=== PATIENT | male | born 1955 | race Caucasian/White ===

== ENCOUNTER 2016-06-18 12:05 | Emergency (ER) | payer OTHER ==
--- NOTE | 2016-06-18 12:26 | ECGEPIP ---
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
[2016-06-18] MEDS ORDERED: ASPIRIN 81 MG CHEW TABLET As Ordered ONE (12:39)
[2016-06-18 12:50] LABS: BASO % 0.5 % (0.0-1.0); EOS # 0.1 K/mm3 (0.0-0.50); EOS % 1.2 % (0.0-3.0); LARGE UNSTAINED CELL # 0.1 K/mm3 (0.0-0.4); LARGE UNSTAINED CELL % 1.6 % (0.0-4.0); LYMPH # 0.2 K/mm3 (1.5-4.5); LYMPH % 3.4 % (24.0-44.0); MEAN CORPUSCULAR HEMOGLOBIN 29.5 pg (27.0-33.0); MEAN CORPUSCULAR HGB CONC 33.3 g/dl (32.0-36.5); MEAN CORPUSCULAR VOLUME 88.5 fl (80.0-96.0); MONO # 0.4 K/mm3 (0.0-0.8); MONO % 6.6 % (0.0-5.0); NEUTROPHILS # 5.8 K/mm3 (1.8-7.7); NEUTROPHILS % 86.6 % (36.0-66.0); PLATELET COUNT, AUTOMATED 247 k/mm3 (150-450); RED CELL DISTRIBUTION WIDTH 12.3 % (11.5-14.5); WHITE BLOOD COUNT 6.7 K/mm3 (4.0-10.0)
[2016-06-18] MEDS ORDERED: IPRATROPIUM 0.02% SOLN 0.5MG/2.5 ML NEB As Ordered ONE (12:50)
[2016-06-18 12:53] LABS: INR 1.04
[2016-06-18 12:57] LABS: ANION GAP 8 MEQ/L (8-16); BLOOD UREA NITROGEN 14 MG/DL (7-18); CALCIUM LEVEL 8.9 MG/DL (8.8-10.2); CARBON DIOXIDE LEVEL 29 MEQ/L (21-32); CHLORIDE LEVEL 99 MEQ/L (98-107); CREATININE FOR GFR 1.22 MG/DL (0.70-1.30); GLOMERULAR FILTRATION RATE > 60.0 (>49); GLUCOSE, FASTING 128 MG/DL (80-110); POTASSIUM SERUM 4.2 MEQ/L (3.5-5.1); SODIUM LEVEL 136 MEQ/L (136-145)
--- NOTE | 2016-06-18 13:19 | REP ---
Clinical: Cough . Comparison: 06/15/2015 . Technique: PA and lateral. Findings: The mediastinum and cardiac silhouette are normal. The lung pollard are clear and without acute consolidation, effusion, or pneumothorax. The skeletal structures are intact and normal. Impression: 1. No acute cardiopulmonary process. Signed by Dave Williamson MD 06/18/2016 01:11 P
--- NOTE | 2016-06-18 13:39 | EDDOCDS ---
Nurse's Notes [facility] Name: Andrés Brownlee Age: 60 yrs Sex: Male : 1955 Arrival Date: 06/18/2016 Time: 12:05 Bed 5 Private MD: Rajani, Family Dr Diagnosis: Bronchitis, not specified as acute or chronic Presentation: 06/18 12:12 Presenting complaint: Patient states: Intermittent chest pressure and cough for the mlb1 past week. Aspirin was not taken prior to arrival. Adult Sepsis Screening: The patient does not have new or worsening altered mentation. Patient's respiratory rate is less than 22. Systolic blood pressure is greater than 100. Patient has a qSOFA score of 0- Negative Sepsis Screen. Suicide/Homicide risk assessment- the patient denies having any suicidal and/or homicidal ideations and does not present with any other emotional, behavioral or mental health complaints. Status: Patient is not a service dismantler or dependent. Transition of care: Patient was received from [facility]. 12:12 Acuity: CONNIE Level 2 mlb1 12:12 Method Of Arrival: Walkin/Carried/Asstd mlb1 Triage Assessment: 12:21 General: Appears in no apparent distress, comfortable, Behavior is appropriate for age, pml cooperative. Pain: Location: chest Pain currently is 3 out of 10 on a pain scale. Quality of pain is described as tightness. HIV screening NA for this visit Offered previously. The patient is triaged at the bedside. See Assessment in Nurses Notes section of ED record. Neurological: Level of Consciousness is awake, alert, Oriented to person, place, time. Cardiovascular: Capillary refill < 3 seconds Chest pain is described as mild, radiates Does not radiate. episodes are intermittent began 5 days ago. Cardiovascular: Rhythm is sinus rhythm No ectopy. Respiratory: Airway is patent Respiratory effort is even, unlabored, Breath sounds are clear bilaterally. Breath sounds are diminished bilaterally. Reports shortness of breath on exertion since x 4 years - no change cough that is non-productive, persistent. GI: Abdomen is non- distended obese. Derm: Skin is pink, warm & dry. Historical: - Allergies: no known allergies; - Home Meds: 1. albuterol sulfate 90 mcg/actuation Nebulizer HFAA 1 puff every 4-6 hours as needed 2. omeprazole 20 mg Oral cpDR 1 cap once daily (Last dose: 06/18/2016 07:00) 3. citalopram 40 mg Oral tab 1 tab once daily (Last dose: 06/18/2016 07:00) 4. hydrochlorothiazide 25 mg Oral tab 1 tab once daily (Last dose: 06/18/2016 07:00) 5. lisinopril 20 mg Oral tab 1 tab once daily (Last dose: 06/18/2016 07:00) 6. carvedilol 6.25 mg oral tab 1 tab 2 times per day (Last dose: 06/18/2016 07:00) 7. atorvastatin 20 mg oral tab 1 tab once daily (Last dose: 06/18/2016 07:00) 8. triamcinolone acetonide 0.5 % Topical crea 2 times per day bilateral legs - PMHx: Hypertension; Depression; Anxiety; Sleep Apnea w/ CPAP; GERD; chronic neck pain; shortness of breath; - PSHx: Back surgery; Hernia repair; - Social history: Smoking status: Patient states former smoker of tobacco. No barriers to communication noted. - : The pt / caregiver states he / she is not on anticoagulants. Home medication list is obtained from a discharge med list. - Exposure Risk Screening:: None identified. - Family history: Not pertinent. Screenin:24 Screening information is obtained from the patient. Fall risk: No risks identified. pml Assistance ADL's: requires no assistance with activities of daily living. Abuse/DV Screen: The patient / caregiver reports he/she is: not in a situation that causes fear, pain or injury. Nutritional screening: No deficits noted. Advance Directives: Currently, there is no health care proxy. home support is adequate. Assessment: 12:24 General: see triage note. pml 13:35 General: Appears in no apparent distress, comfortable, Behavior is appropriate for age, aa3 cooperative. Pain: Denies pain. Neurological: Level of Consciousness is awake, alert, Oriented to person, place, time. Cardiovascular: Capillary refill < 3 seconds Chest pain is denied. Cardiovascular: Heart tones S1 S2 present. Respiratory: Airway is patent Respiratory effort is even, unlabored, Breath sounds are diminished bilaterally. in left posterior lower lobe and right posterior lower lobe. Derm: Skin is intact, is healthy with good turgor, Skin is pink, warm & dry. normal. Vital Signs: 12:07 BP 146 / 91; Pulse 92; Resp 20; Temp 100.2(O); Pulse Ox 96% ; Weight 112.04 kg; Height cmb 6 ft. 1 in. (185.42 cm); Pain 4/10; 13:35 BP 149 / 90; Pulse 88; Resp 18; Temp 99.3(O); Pulse Ox 99% on R/A; Pain 0/10; aa3 12:07 Body Mass Index 32.59 (112.04 kg, 185.42 cm) cmb Vitals: 12:07 Log In Time: June 18, 2016 at 12:05. cmb ED Course: 12:06 Patient visited by Jessica Moser. cmb 12:06 Unknown, Family Dr is Private Physician. cmb 12:06 Patient moved to Waiting cmb 12:08 Patient moved to Pre RCE cmb 12:08 RN notified that patient meets Red Flag criteria. cmb 12:11 Patient moved to 5 mlb1 12:12 Patient visited by Rei Vigil, AZRA. mlb1 12:13 Triage Initiated mlb1 12:21 Patient visited by Rei Vigil, AZRA. mlb1 12:23 EKG done. (by ED staff). Reviewed by Dom RANGEL. jrrobby 12:24 The patient / caregiver is instructed regarding the plan of care and ED course. Patient noreen has correct armband on for positive identification. Placed in gown. Bed in low position. Call light in reach. Side rails up X2. monitor worker on. Pulse ox on. NIBP on. 12:24 Inserted peripheral IV: 18gauge IV in right antecubital area and blood collected. pml Patient tolerated the procedure well. 12:25 Patient visited by Meghan Green,AZRA. pml 12:27 Patient visited by Mj Lainez PCA. jrrobby 12:29 [facility] Palacios FNP [facility]. winsome 12:30 Patient visited by Dom Palacios FNP. winsome 12:30 Patient visited by Dom Palacios FNP. ke 13:04 EKG-ADULT Returned. EDMS 13:19 [facility] Payment Agreement was scanned into [employer] and attached to record. mm15 13:35 Discontinued IV intact, bleeding controlled, No redness/swelling at site. No procedures aa3 done that require assistance. 13:37 Patient visited by Nancy Alan RN. aa3 Administered Medications: 12:41 Not Given (Duplicate Order): Aspirin Chewable Tablet 324 mg PO once pml 12:41 Drug: NS 0.9% 1000 ml [sodium chloride 0.9 % injection syringe] Route: IV; Rate: 100 pml mL/hr; Site: right antecubital; 13:38 Follow up: IV Status: Infusion discontinued; IV Intake: 100ml aa3 12:41 Drug: Aspirin 324 mg [aspirin 81 mg chewable tablet (4 tabs)] Route: PO; pml 13:38 Follow up: Response: No significant change. aa3 12:54 Drug: Atrovent - Ipratropium 500 mcg [ipratropium bromide 0.02 % solution for cs15 inhalation (2.5 mL)] Route: Nebulizer; 13:38 Follow up: Response: Wheezing has decreased aa3 Intake: 13:38 IV: 100.00ml; Total: 100.00ml. aa3 RT: 12:54 Initial Med Neb Given as ordered. Respiratory: Respiratory effort is unlabored, cs15 Respiratory pattern is regular Breath sounds are diminished bilaterally. Reports chest tightness. Order Results: Lab Order: B-Type Natiuretic Peptide; SPEC'M 06/18/16 12:20 Test: BRAIN NATRIURETIC PEPTIDE; Value: 14.5; Range: <100; Units: PG/ML; Status: F Lab Order: Basic Metabolic Profile; SPEC'M 06/18/16 12:20 Test: GLUCOSE, FASTING; Value: 128; Range: 80-110; Abnormal: Above high normal; Units: MG/DL; Status: F Test: BLOOD UREA NITROGEN; Value: 14; Range: 7-18; Units: MG/DL; Status: F Test: CREATININE FOR GFR; Value: 1.22; Range: 0.70-1.30; Units: MG/DL; Status: F Test: GLOMERULAR FILTRATION RATE; Value: > 60.0; Range: >49; Status: F Test: SODIUM LEVEL; Value: 136; Range: 136-145; Units: MEQ/L; Status: F Test: POTASSIUM SERUM; Value: 4.2; Range: 3.5-5.1; Units: MEQ/L; Status: F Test: CHLORIDE LEVEL; Value: 99; Range: 98-107; Units: MEQ/L; Status: F Test: CARBON DIOXIDE LEVEL; Value: 29; Range: 21-32; Units: MEQ/L; Status: F Test: ANION GAP; Value: 8; Range: 8-16; Units: MEQ/L; Status: F Test: CALCIUM LEVEL; Value: 8.9; Range: 8.8-10.2; Units: MG/DL; Status: F Test Note: ; Units are mL/min/1.73 m2 Chronic Kidney Disease Staging per NKF: Stage I & II GFR >=60 Normal to Mildly Decreased Stage III GFR 30-59 Moderately Decreased Stage IV GFR 15-29 Severely Decreased Stage V GFR <15 Very Little GFR Left ESRD GFR <15 on COST RECORDER Lab Order: CBC with Diff; SPEC'M 06/18/16 12:20 Test: WHITE BLOOD COUNT; Value: 6.7; Range: 4.0-10.0; Units: K/mm3; Status: F Test: RED BLOOD COUNT; Value: 4.88; Range: 4.30-6.10; Units: M/mm3; Status: F Test: HEMOGLOBIN; Value: 14.4; Range: 14.0-18.0; Units: g/dl; Status: F Test: HEMATOCRIT; Value: 43.1; Range: 42.0-52.0; Units: %; Status: F Test: MEAN CORPUSCULAR VOLUME; Value: 88.5; Range: 80.0-96.0; Units: fl; Status: F Test: MEAN CORPUSCULAR HEMOGLOBIN; Value: 29.5; Range: 27.0-33.0; Units: pg; Status: F Test: MEAN CORPUSCULAR HGB CONC; Value: 33.3; Range: 32.0-36.5; Units: g/dl; Status: F Test: RED CELL DISTRIBUTION WIDTH; Value: 12.3; Range: 11.5-14.5; Units: %; Status: F Test: PLATELET COUNT, AUTOMATED; Value: 247; Range: 150-450; Units: k/mm3; Status: F Test: NEUTROPHILS %; Value: 86.6; Range: 36.0-66.0; Abnormal: Above high normal; Units: %; Status: F Test: LYMPH %; Value: 3.4; Range: 24.0-44.0; Abnormal: Below low normal; Units: %; Status: F Test: MONO %; Value: 6.6; Range: 0.0-5.0; Abnormal: Above high normal; Units: %; Status: F Test: EOS %; Value: 1.2; Range: 0.0-3.0; Units: %; Status: F Test: BASO %; Value: 0.5; Range: 0.0-1.0; Units: %; Status: F Test: LARGE UNSTAINED CELL %; Value: 1.6; Range: 0.0-4.0; Units: %; Status: F Test: NEUTROPHILS #; Value: 5.8; Range: 1.8-7.7; Units: K/mm3; Status: F Test: LYMPH #; Value: 0.2; Range: 1.5-4.5; Abnormal: Below low normal; Units: K/mm3; Status: F Test: MONO #; Value: 0.4; Range: 0.0-0.8; Units: K/mm3; Status: F Test: EOS #; Value: 0.1; Range: 0.0-0.50; Units: K/mm3; Status: F Test: BASO #; Value: 0.0; Range: 0.0-0.2; Units: K/mm3; Status: F Test: LARGE UNSTAINED CELL #; Value: 0.1; Range: 0.0-0.4; Units: K/mm3; Status: F Lab Order: Cardiac Injury Profile; SPEC'M 06/18/16 12:20 Test: CPK CREATINE PHOSPHOKINASE; Value: 100; Range: 39-308; Units: U/L; Status: F Test: CK-MB VALUE MASS; Value: 1.0; Range: 0.0-3.6; Units: NG/ML; Status: F Test: MB/CK RELATIVE INDEX; Value: 1.00; Range: < OR =4; Status: F Test Note: ; DIAGNOSIS CRITERIA MMB ng/ml Relative Index (RI) NON-AMI < or = 5 N/A DANIEL ZONE > 5 < or = 4 AMI > 5 > 4 Lab Order: Prothrombin Time Profile\E\INR; SPEC'M 06/18/16 12:20 Test: PROTHROMBIN TIME; Value: 13.7; Range: 12.3-14.5; Units: SECONDS; Status: F Test: INR; Value: 1.04; Status: F Test Note: ; THERAPUTIC HUMAN INR VALUES INDICATIONS NORMAL RANGES PROPHYLAXIS/TREATMENT OF: VENOUS THROMBOSIS 2.0-3.0 PULMONARY EMBOLISM 2.0-3.0 PREVENTION OF SYSTEMIC EMBOLISM FROM: TISSUE HEART VALVES 2.0-3.0 ACUTE MYOCARDIAL INFARCTION 2.0-3.0 VALVULAR HEART DISEASE 2.0-3.0 ATRIAL FIBRILLATION 2.0-3.0 MECHANICAL VALVES(HIGH RISK) 2.5-3.5 RECURRENT MYOCARDIAL INFARCTION 2.5-3.5 Lab Order: Troponin; SPEC'M 06/18/16 12:20 Test: TROPONIN I; Value: < 0.02; Range: < 0.10; Units: NG/ML; Status: F Test Note: ; Troponin I Reference Interval for [employer] LOCI: 99th Percentile= 0.00-0.045 ng/ml Risk Stratification: <= 0.10 ng/ml Decreased Risk for Adverse Clinical Events. 0.10-1.50 ng/ml Increased Risk for Adverse Clinical Events. Evaluation of additional criterion and/or repeat testing in 2-6 hours is suggested to rule out myocardial damage. >= 1.50 ng/ml Indicative of Myocardial Injury. 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 13:35 Discharge Assessment: Patient awake and alert. Oriented to person, place and time. aa3 Patient verbalized understanding of disposition instructions. Patient has no functional deficits. patient administered narcotics - no. The following High Risk Discharge criteria are identified: None. Discharged to home ambulatory, with significant other. Condition: good. Discharge instructions given to patient, Instructed on discharge instructions, follow up and referral plans. medication usage, Demonstrated understanding of instructions, medications, Pt was receptive of discharge instructions/ teaching. Prescriptions given X 3. No special radiology studies were completed. Property :Personal belongings accompany Pt. 13:38 Patient left the ED. aa3 Signatures: Dispatcher [employer] EDMS Dom Palacios, SEASONER HAND SEASONER HAND Rei Brody RN RN mlb1 Meghan GreenRN RN pml Jessica Moser Marlynn mm15 Nancy AlanRN RN aa3 Mj Lainez, SLURRY CONTROL TENDER SLURRY CONTROL TENDER jrd Jayy Garrido,RT RT cs15 Corrections: (The following items were deleted from the chart) 12:41 12:41 Aspirin Chewable Tablet 324 mg PO pml pml MTDD
--- NOTE | 2016-06-18 13:39 | EDDOCDS ---
Physician Documentation [facility] Name: Andrés Brownlee Age: 60 yrs Sex: Male : 1955 Arrival Date: 06/18/2016 Time: 12:05 Bed 5 Private MD: Unknown, Family Dr Disposition: 06/18/16 13:23 Discharged to Home/Self Care. Impression: Bronchitis, not specified as acute or chronic. - Condition is Stable. - Discharge Instructions: Acute Bronchitis, Metered Dose Inhaler with Spacer. - Prescriptions for Pulmicort Flexhaler 180 mcg/actuation Inhalation aerosol powdr breath activated - inhale 2 puff by INHALATION route 2 times per day; 1 Inhaler. Moxifloxacin 400 mg Oral Tablet - take 1 tablet by ORAL route once daily; 5 tablet. Albuterol Sulfate 90 mcg/actuation Inhalation HFA Aerosol Inhaler - inhale 2 puff by INHALATION route every 4 hours As needed; 1 Inhaler. - Medication Reconciliation, Local Pharmacy Hours form. - Follow up: Private Physician; When: 1 week; Reason: Recheck today's complaints, Continuance of care. - Problem is an ongoing problem. - Symptoms are unchanged. Historical: - Allergies: no known allergies; - Home Meds: 1. albuterol sulfate 90 mcg/actuation Nebulizer HFAA 1 puff every 4-6 hours as needed 2. omeprazole 20 mg Oral cpDR 1 cap once daily (Last dose: 06/18/2016 07:00) 3. citalopram 40 mg Oral tab 1 tab once daily (Last dose: 06/18/2016 07:00) 4. hydrochlorothiazide 25 mg Oral tab 1 tab once daily (Last dose: 06/18/2016 07:00) 5. lisinopril 20 mg Oral tab 1 tab once daily (Last dose: 06/18/2016 07:00) 6. carvedilol 6.25 mg oral tab 1 tab 2 times per day (Last dose: 06/18/2016 07:00) 7. atorvastatin 20 mg oral tab 1 tab once daily (Last dose: 06/18/2016 07:00) 8. triamcinolone acetonide 0.5 % Topical crea 2 times per day bilateral legs - PMHx: Hypertension; Depression; Anxiety; Sleep Apnea w/ CPAP; GERD; chronic neck pain; shortness of breath; - PSHx: Back surgery; Hernia repair; - Social history: Smoking status: Patient states former smoker of tobacco. No barriers to communication noted. - : The pt / caregiver states he / she is not on anticoagulants. Home medication list is obtained from a discharge med list. - Exposure Risk Screening:: None identified. - Family history: Not pertinent. Vital Signs: 06/18 12:07 BP 146 / 91; Pulse 92; Resp 20; Temp 100.2(O); Pulse Ox 96% ; Weight 112.04 kg / 247.01 cmb lbs; Height 6 ft. 1 in. (185.42 cm); Pain 4/10; 13:35 BP 149 / 90; Pulse 88; Resp 18; Temp 99.3(O); Pulse Ox 99% on R/A; Pain 0/10; aa3 12:07 Body Mass Index 32.59 (112.04 kg, 185.42 cm) cmb MDM: 12:16 ECG WITH READING ER PHYS+CARDIAG ordered. EDMS 12:37 Aspirin Chewable Tablet 324 mg PO once ordered. ke 12:37 NS 0.9% 1000 ml IV at 100 mL/hr continuous ordered. ke 12:37 Tire Retreader/Pulse Ox/q 30 min VS ordered. ke 12:37 IV Saline Lock ordered. ke 12:37 Rhythm Strip to chart ordered. ke 12:37 Undress patient appropriately for examination ordered. ke 12:37 Atrovent - Ipratropium 500 mcg Nebulizer once ordered. ke 12:37 Call Respiratory ordered. ke 12:38 Aspirin 324 mg PO once ordered. ke 12:38 B-Type Natiuretic Peptide Ordered. EDMS 12:38 Basic Metabolic Profile Ordered. EDMS 12:38 CBC with Diff Ordered. EDMS 12:38 Cardiac Injury Profile Ordered. EDMS 12:38 Prothrombin Time Profile\E\INR Ordered. EDMS 12:38 Troponin Ordered. EDMS 12:38 Chest, 2 View (pa\E\lat) Ordered. EDMS 12:39 Call Respiratory complete. deg 12:41 Aspirin Chewable Tablet 324 mg PO once ordered. pml 12:52 Financial registration complete. mm15 13:18 Basic Metabolic Profile Reviewed. ke 13:18 CBC with Diff Reviewed. ke 13:18 B-Type Natiuretic Peptide Reviewed. ke 13:18 Cardiac Injury Profile Reviewed. ke 13:18 Prothrombin Time Profile\E\INR Reviewed. ke 13:18 Troponin Reviewed. ke 13:18 EKG-ADULT Reviewed. 13:19 [facility] Payment Agreement was scanned into [employer] and attached to record. mm15 Administered Medications: 12:41 Not Given (Duplicate Order): Aspirin Chewable Tablet 324 mg PO once pml 12:41 Drug: NS 0.9% 1000 ml [sodium chloride 0.9 % injection syringe] Route: IV; Rate: 100 pml mL/hr; Site: right antecubital; 13:38 Follow up: IV Status: Infusion discontinued; IV Intake: 100ml aa3 12:41 Drug: Aspirin 324 mg [aspirin 81 mg chewable tablet (4 tabs)] Route: PO; pml 13:38 Follow up: Response: No significant change. aa3 12:54 Drug: Atrovent - Ipratropium 500 mcg [ipratropium bromide 0.02 % solution for cs15 inhalation (2.5 mL)] Route: Nebulizer; 13:38 Follow up: Response: Wheezing has decreased aa3 Signatures: Dispatcher [employer] EDMS Elo Noble, Associate Merchandiser Unit deg Dom Palacios, SAP PPM CONSULTANT SAP PPM CONSULTANT Rei Brody RN RN mlb1 Meghan GreenRN RN pml Faith Guajardo mm15 Nancy AlanRN RN aa3 Jayy Garrido RT cs15 The chart was reviewed and I authenticate all verbal orders and agree with the evaluation and treatment provided.Attachments: 13:19 [facility] Payment Agreement mm15 MTDD
--- NOTE | 2016-06-20 14:40 | EDDOCDS ---
Physician Documentation [facility] Name: Andrés Brownlee Age: 60 yrs Sex: Male : 1955 Arrival Date: 06/18/2016 Time: 12:05 Bed 5 Private MD: Unknown, Family Dr Disposition: 06/18/16 13:23 Discharged to Home/Self Care. Impression: Bronchitis, not specified as acute or chronic. - Condition is Stable. - Discharge Instructions: Acute Bronchitis, Metered Dose Inhaler with Spacer. - Prescriptions for Pulmicort Flexhaler 180 mcg/actuation Inhalation aerosol powdr breath activated - inhale 2 puff by INHALATION route 2 times per day; 1 Inhaler. Moxifloxacin 400 mg Oral Tablet - take 1 tablet by ORAL route once daily; 5 tablet. Albuterol Sulfate 90 mcg/actuation Inhalation HFA Aerosol Inhaler - inhale 2 puff by INHALATION route every 4 hours As needed; 1 Inhaler. - Medication Reconciliation, Local Pharmacy Hours form. - Follow up: Private Physician; When: 1 week; Reason: Recheck today's complaints, Continuance of care. - Problem is an ongoing problem. - Symptoms are unchanged. Historical: - Allergies: no known allergies; - Home Meds: 1. albuterol sulfate 90 mcg/actuation Nebulizer HFAA 1 puff every 4-6 hours as needed 2. omeprazole 20 mg Oral cpDR 1 cap once daily (Last dose: 06/18/2016 07:00) 3. citalopram 40 mg Oral tab 1 tab once daily (Last dose: 06/18/2016 07:00) 4. hydrochlorothiazide 25 mg Oral tab 1 tab once daily (Last dose: 06/18/2016 07:00) 5. lisinopril 20 mg Oral tab 1 tab once daily (Last dose: 06/18/2016 07:00) 6. carvedilol 6.25 mg oral tab 1 tab 2 times per day (Last dose: 06/18/2016 07:00) 7. atorvastatin 20 mg oral tab 1 tab once daily (Last dose: 06/18/2016 07:00) 8. triamcinolone acetonide 0.5 % Topical crea 2 times per day bilateral legs - PMHx: Hypertension; Depression; Anxiety; Sleep Apnea w/ CPAP; GERD; chronic neck pain; shortness of breath; - PSHx: Back surgery; Hernia repair; - Social history: Smoking status: Patient states former smoker of tobacco. No barriers to communication noted. - : The pt / caregiver states he / she is not on anticoagulants. Home medication list is obtained from a discharge med list. - Exposure Risk Screening:: None identified. - Family history: Not pertinent. Vital Signs: 06/18 12:07 BP 146 / 91; Pulse 92; Resp 20; Temp 100.2(O); Pulse Ox 96% ; Weight 112.04 kg / 247.01 cmb lbs; Height 6 ft. 1 in. (185.42 cm); Pain 4/10; 13:35 BP 149 / 90; Pulse 88; Resp 18; Temp 99.3(O); Pulse Ox 99% on R/A; Pain 0/10; aa3 12:07 Body Mass Index 32.59 (112.04 kg, 185.42 cm) cmb MDM: 12:16 ECG WITH READING ER PHYS+CARDIAG ordered. EDMS 12:37 Aspirin Chewable Tablet 324 mg PO once ordered. ke 12:37 NS 0.9% 1000 ml IV at 100 mL/hr continuous ordered. ke 12:37 [employer] Operations Consultant/Pulse Ox/q 30 min VS ordered. ke 12:37 IV Saline Lock ordered. ke 12:37 Rhythm Strip to chart ordered. ke 12:37 Undress patient appropriately for examination ordered. ke 12:37 Atrovent - Ipratropium 500 mcg Nebulizer once ordered. ke 12:37 Call Respiratory ordered. ke 12:38 Aspirin 324 mg PO once ordered. ke 12:38 B-Type Natiuretic Peptide Ordered. EDMS 12:38 Basic Metabolic Profile Ordered. EDMS 12:38 CBC with Diff Ordered. EDMS 12:38 Cardiac Injury Profile Ordered. EDMS 12:38 Prothrombin Time Profile\E\INR Ordered. EDMS 12:38 Troponin Ordered. EDMS 12:38 Chest, 2 View (pa\E\lat) Ordered. EDMS 12:39 Call Respiratory complete. deg 12:41 Aspirin Chewable Tablet 324 mg PO once ordered. pml 12:52 Financial registration complete. mm15 13:18 Basic Metabolic Profile Reviewed. ke 13:18 CBC with Diff Reviewed. ke 13:18 B-Type Natiuretic Peptide Reviewed. ke 13:18 Cardiac Injury Profile Reviewed. ke 13:18 Prothrombin Time Profile\E\INR Reviewed. ke 13:18 Troponin Reviewed. ke 13:18 EKG-ADULT Reviewed. ke 13:19 [facility] Payment Agreement was scanned into [employer] and attached to record. mm15 15:34 T-Sheet-- Draft Copy was scanned into [employer] and attached to record. [facility] 06/20 11:25 ECG/EKG was scanned into [employer] and attached to record. lg Administered Medications: 06/18 12:41 Not Given (Duplicate Order): Aspirin Chewable Tablet 324 mg PO once pml 12:41 Drug: NS 0.9% 1000 ml [sodium chloride 0.9 % injection syringe] Route: IV; Rate: 100 pml mL/hr; Site: right antecubital; 13:38 Follow up: IV Status: Infusion discontinued; IV Intake: 100ml aa3 12:41 Drug: Aspirin 324 mg [aspirin 81 mg chewable tablet (4 tabs)] Route: PO; pml 13:38 Follow up: Response: No significant change. aa3 12:54 Drug: Atrovent - Ipratropium 500 mcg [ipratropium bromide 0.02 % solution for cs15 inhalation (2.5 mL)] Route: Nebulizer; 13:38 Follow up: Response: Wheezing has decreased aa3 Signatures: Dispatcher [employer] EDMS Elo Noble, Administrative Assistant Coordinator Unit deg Amilcar Butcher, Scot Reg lg Dom Palacios, SUPERVISOR PROP MAKING SUPERVISOR PROP MAKING Rei Brody RN RN mlb1 Meghan GreenRN RN pml Faith Guajardo mm15 Nancy Alan RN RN tom3 Mindy Howard Caleb RT cs15 The chart was reviewed and I authenticate all verbal orders and agree with the evaluation and treatment provided.Attachments: 13:19 [facility] Payment Agreement mm15 15:34 T-Sheet-- Draft Copy [facility] 06/20 11:25 ECG/EKG lg Chart Complete MTDD
--- NOTE | 2016-06-20 14:40 | EDDOCDS ---
Nurse's Notes [facility] Name: Andrés Brownlee Age: 60 yrs Sex: Male : 1955 Arrival Date: 06/18/2016 Time: 12:05 Bed 5 Private MD: Rajani, Family Dr Diagnosis: Bronchitis, not specified as acute or chronic Presentation: 06/18 12:12 Presenting complaint: Patient states: Intermittent chest pressure and cough for the mlb1 past week. Aspirin was not taken prior to arrival. Adult Sepsis Screening: The patient does not have new or worsening altered mentation. Patient's respiratory rate is less than 22. Systolic blood pressure is greater than 100. Patient has a qSOFA score of 0- Negative Sepsis Screen. Suicide/Homicide risk assessment- the patient denies having any suicidal and/or homicidal ideations and does not present with any other emotional, behavioral or mental health complaints. Status: Patient is not a adult services librarian or dependent. Transition of care: Patient was received from [facility]. 12:12 Acuity: CONNIE Level 2 mlb1 12:12 Method Of Arrival: Walkin/Carried/Asstd mlb1 Triage Assessment: 12:21 General: Appears in no apparent distress, comfortable, Behavior is appropriate for age, pml cooperative. Pain: Location: chest Pain currently is 3 out of 10 on a pain scale. Quality of pain is described as tightness. HIV screening NA for this visit Offered previously. The patient is triaged at the bedside. See Assessment in Nurses Notes section of ED record. Neurological: Level of Consciousness is awake, alert, Oriented to person, place, time. Cardiovascular: Capillary refill < 3 seconds Chest pain is described as mild, radiates Does not radiate. episodes are intermittent began 5 days ago. Cardiovascular: Rhythm is sinus rhythm No ectopy. Respiratory: Airway is patent Respiratory effort is even, unlabored, Breath sounds are clear bilaterally. Breath sounds are diminished bilaterally. Reports shortness of breath on exertion since x 4 years - no change cough that is non-productive, persistent. GI: Abdomen is non- distended obese. Derm: Skin is pink, warm & dry. Historical: - Allergies: no known allergies; - Home Meds: 1. albuterol sulfate 90 mcg/actuation Nebulizer HFAA 1 puff every 4-6 hours as needed 2. omeprazole 20 mg Oral cpDR 1 cap once daily (Last dose: 06/18/2016 07:00) 3. citalopram 40 mg Oral tab 1 tab once daily (Last dose: 06/18/2016 07:00) 4. hydrochlorothiazide 25 mg Oral tab 1 tab once daily (Last dose: 06/18/2016 07:00) 5. lisinopril 20 mg Oral tab 1 tab once daily (Last dose: 06/18/2016 07:00) 6. carvedilol 6.25 mg oral tab 1 tab 2 times per day (Last dose: 06/18/2016 07:00) 7. atorvastatin 20 mg oral tab 1 tab once daily (Last dose: 06/18/2016 07:00) 8. triamcinolone acetonide 0.5 % Topical crea 2 times per day bilateral legs - PMHx: Hypertension; Depression; Anxiety; Sleep Apnea w/ CPAP; GERD; chronic neck pain; shortness of breath; - PSHx: Back surgery; Hernia repair; - Social history: Smoking status: Patient states former smoker of tobacco. No barriers to communication noted. - : The pt / caregiver states he / she is not on anticoagulants. Home medication list is obtained from a discharge med list. - Exposure Risk Screening:: None identified. - Family history: Not pertinent. Screenin:24 Screening information is obtained from the patient. Fall risk: No risks identified. pml Assistance ADL's: requires no assistance with activities of daily living. Abuse/DV Screen: The patient / caregiver reports he/she is: not in a situation that causes fear, pain or injury. Nutritional screening: No deficits noted. Advance Directives: Currently, there is no health care proxy. home support is adequate. Assessment: 12:24 General: see triage note. pml 13:35 General: Appears in no apparent distress, comfortable, Behavior is appropriate for age, aa3 cooperative. Pain: Denies pain. Neurological: Level of Consciousness is awake, alert, Oriented to person, place, time. Cardiovascular: Capillary refill < 3 seconds Chest pain is denied. Cardiovascular: Heart tones S1 S2 present. Respiratory: Airway is patent Respiratory effort is even, unlabored, Breath sounds are diminished bilaterally. in left posterior lower lobe and right posterior lower lobe. Derm: Skin is intact, is healthy with good turgor, Skin is pink, warm & dry. normal. Vital Signs: 12:07 BP 146 / 91; Pulse 92; Resp 20; Temp 100.2(O); Pulse Ox 96% ; Weight 112.04 kg; Height cmb 6 ft. 1 in. (185.42 cm); Pain 4/10; 13:35 BP 149 / 90; Pulse 88; Resp 18; Temp 99.3(O); Pulse Ox 99% on R/A; Pain 0/10; aa3 12:07 Body Mass Index 32.59 (112.04 kg, 185.42 cm) cmb Vitals: 12:07 Log In Time: June 18, 2016 at 12:05. cmb ED Course: 12:06 Patient visited by Jessica Moser. cmb 12:06 Unknown, Family Dr is Private Physician. cmb 12:06 Patient moved to Waiting cmb 12:08 Patient moved to Pre RCE cmb 12:08 RN notified that patient meets Red Flag criteria. cmb 12:11 Patient moved to 5 mlb1 12:12 Patient visited by Rei Vigil, AZRA. mlb1 12:13 Triage Initiated mlb1 12:21 Patient visited by Rei Vigil, AZRA. mlb1 12:23 EKG done. (by ED staff). Reviewed by Dom RANGEL. jrrobby 12:24 The patient / caregiver is instructed regarding the plan of care and ED course. Patient noreen has correct armband on for positive identification. Placed in gown. Bed in low position. Call light in reach. Side rails up X2. earth science technician on. Pulse ox on. NIBP on. 12:24 Inserted peripheral IV: 18gauge IV in right antecubital area and blood collected. pml Patient tolerated the procedure well. 12:25 Patient visited by Meghan Green,AZRA. pml 12:27 Patient visited by Mj Lainez PCA. jrrobby 12:29 [facility] Palacios FNP [facility]. winsome 12:30 Patient visited by Dom Palacios FNP. winsome 12:30 Patient visited by Dom Palacios FNP. ke 13:04 EKG-ADULT Returned. EDMS 13:19 [facility] Payment Agreement was scanned into [employer] and attached to record. mm15 13:35 Discontinued IV intact, bleeding controlled, No redness/swelling at site. No procedures aa3 done that require assistance. 13:37 Patient visited by Nancy Alan RN. aa3 13:47 Chest, 2 View (pa\E\lat) Returned. EDMS 15:34 T-Sheet-- Draft Copy was scanned into [employer] and attached to record. klr 06/20 11:25 ECG/EKG was scanned into [employer] and attached to record. lg Administered Medications: 06/18 12:41 Not Given (Duplicate Order): Aspirin Chewable Tablet 324 mg PO once pml 12:41 Drug: NS 0.9% 1000 ml [sodium chloride 0.9 % injection syringe] Route: IV; Rate: 100 pml mL/hr; Site: right antecubital; 13:38 Follow up: IV Status: Infusion discontinued; IV Intake: 100ml aa3 12:41 Drug: Aspirin 324 mg [aspirin 81 mg chewable tablet (4 tabs)] Route: PO; pml 13:38 Follow up: Response: No significant change. aa3 12:54 Drug: Atrovent - Ipratropium 500 mcg [ipratropium bromide 0.02 % solution for cs15 inhalation (2.5 mL)] Route: Nebulizer; 13:38 Follow up: Response: Wheezing has decreased aa3 Intake: 13:38 IV: 100.00ml; Total: 100.00ml. aa3 RT: 12:54 Initial Med Neb Given as ordered. Respiratory: Respiratory effort is unlabored, cs15 Respiratory pattern is regular Breath sounds are diminished bilaterally. Reports chest tightness. Order Results: Lab Order: B-Type Natiuretic Peptide; SPEC'M 06/18/16 12:20 Test: BRAIN NATRIURETIC PEPTIDE; Value: 14.5; Range: <100; Units: PG/ML; Status: F Lab Order: Basic Metabolic Profile; SPEC'M 06/18/16 12:20 Test: GLUCOSE, FASTING; Value: 128; Range: 80-110; Abnormal: Above high normal; Units: MG/DL; Status: F Test: BLOOD UREA NITROGEN; Value: 14; Range: 7-18; Units: MG/DL; Status: F Test: CREATININE FOR GFR; Value: 1.22; Range: 0.70-1.30; Units: MG/DL; Status: F Test: GLOMERULAR FILTRATION RATE; Value: > 60.0; Range: >49; Status: F Test: SODIUM LEVEL; Value: 136; Range: 136-145; Units: MEQ/L; Status: F Test: POTASSIUM SERUM; Value: 4.2; Range: 3.5-5.1; Units: MEQ/L; Status: F Test: CHLORIDE LEVEL; Value: 99; Range: 98-107; Units: MEQ/L; Status: F Test: CARBON DIOXIDE LEVEL; Value: 29; Range: 21-32; Units: MEQ/L; Status: F Test: ANION GAP; Value: 8; Range: 8-16; Units: MEQ/L; Status: F Test: CALCIUM LEVEL; Value: 8.9; Range: 8.8-10.2; Units: MG/DL; Status: F Test Note: ; Units are mL/min/1.73 m2 Chronic Kidney Disease Staging per NKF: Stage I & II GFR >=60 Normal to Mildly Decreased Stage III GFR 30-59 Moderately Decreased Stage IV GFR 15-29 Severely Decreased Stage V GFR <15 Very Little GFR Left ESRD GFR <15 on FIELD TRAINER Lab Order: CBC with Diff; SPEC'M 06/18/16 12:20 Test: WHITE BLOOD COUNT; Value: 6.7; Range: 4.0-10.0; Units: K/mm3; Status: F Test: RED BLOOD COUNT; Value: 4.88; Range: 4.30-6.10; Units: M/mm3; Status: F Test: HEMOGLOBIN; Value: 14.4; Range: 14.0-18.0; Units: g/dl; Status: F Test: HEMATOCRIT; Value: 43.1; Range: 42.0-52.0; Units: %; Status: F Test: MEAN CORPUSCULAR VOLUME; Value: 88.5; Range: 80.0-96.0; Units: fl; Status: F Test: MEAN CORPUSCULAR HEMOGLOBIN; Value: 29.5; Range: 27.0-33.0; Units: pg; Status: F Test: MEAN CORPUSCULAR HGB CONC; Value: 33.3; Range: 32.0-36.5; Units: g/dl; Status: F Test: RED CELL DISTRIBUTION WIDTH; Value: 12.3; Range: 11.5-14.5; Units: %; Status: F Test: PLATELET COUNT, AUTOMATED; Value: 247; Range: 150-450; Units: k/mm3; Status: F Test: NEUTROPHILS %; Value: 86.6; Range: 36.0-66.0; Abnormal: Above high normal; Units: %; Status: F Test: LYMPH %; Value: 3.4; Range: 24.0-44.0; Abnormal: Below low normal; Units: %; Status: F Test: MONO %; Value: 6.6; Range: 0.0-5.0; Abnormal: Above high normal; Units: %; Status: F Test: EOS %; Value: 1.2; Range: 0.0-3.0; Units: %; Status: F Test: BASO %; Value: 0.5; Range: 0.0-1.0; Units: %; Status: F Test: LARGE UNSTAINED CELL %; Value: 1.6; Range: 0.0-4.0; Units: %; Status: F Test: NEUTROPHILS #; Value: 5.8; Range: 1.8-7.7; Units: K/mm3; Status: F Test: LYMPH #; Value: 0.2; Range: 1.5-4.5; Abnormal: Below low normal; Units: K/mm3; Status: F Test: MONO #; Value: 0.4; Range: 0.0-0.8; Units: K/mm3; Status: F Test: EOS #; Value: 0.1; Range: 0.0-0.50; Units: K/mm3; Status: F Test: BASO #; Value: 0.0; Range: 0.0-0.2; Units: K/mm3; Status: F Test: LARGE UNSTAINED CELL #; Value: 0.1; Range: 0.0-0.4; Units: K/mm3; Status: F Lab Order: Cardiac Injury Profile; SPEC'M 06/18/16 12:20 Test: CPK CREATINE PHOSPHOKINASE; Value: 100; Range: 39-308; Units: U/L; Status: F Test: CK-MB VALUE MASS; Value: 1.0; Range: 0.0-3.6; Units: NG/ML; Status: F Test: MB/CK RELATIVE INDEX; Value: 1.00; Range: < OR =4; Status: F Test Note: ; DIAGNOSIS CRITERIA MMB ng/ml Relative Index (RI) NON-AMI < or = 5 N/A DANIEL ZONE > 5 < or = 4 AMI > 5 > 4 Lab Order: Prothrombin Time Profile\E\INR; SPEC'M 06/18/16 12:20 Test: PROTHROMBIN TIME; Value: 13.7; Range: 12.3-14.5; Units: SECONDS; Status: F Test: INR; Value: 1.04; Status: F Test Note: ; THERAPUTIC HUMAN INR VALUES INDICATIONS NORMAL RANGES PROPHYLAXIS/TREATMENT OF: VENOUS THROMBOSIS 2.0-3.0 PULMONARY EMBOLISM 2.0-3.0 PREVENTION OF SYSTEMIC EMBOLISM FROM: TISSUE HEART VALVES 2.0-3.0 ACUTE MYOCARDIAL INFARCTION 2.0-3.0 VALVULAR HEART DISEASE 2.0-3.0 ATRIAL FIBRILLATION 2.0-3.0 MECHANICAL VALVES(HIGH RISK) 2.5-3.5 RECURRENT MYOCARDIAL INFARCTION 2.5-3.5 Lab Order: Troponin; SPEC06/18/16 12:20 Test: TROPONIN I; Value: < 0.02; Range: < 0.10; Units: NG/ML; Status: F Test Note: ; Troponin I Reference Interval for TR Fleet Limited LOCI: 99th Percentile= 0.00-0.045 ng/ml Risk Stratification: <= 0.10 ng/ml Decreased Risk for Adverse Clinical Events. 0.10-1.50 ng/ml Increased Risk for Adverse Clinical Events. Evaluation of additional criterion and/or repeat testing in 2-6 hours is suggested to rule out myocardial damage. >= 1.50 ng/ml Indicative of Myocardial Injury. 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; : 1955 Requested By: RODRIGO Masterson; Order Number: [id number] Reading MD: Gonzalo Hidlago; Measurements; Intervals [place]; Rate: 88 P: 5; [place]: 149 QRS: 22; QRSD: 93 T: 58; QT: 353; QTc: 428; Interpretive Statements; SINUS RHYTHM; NSTTW ABNORMALITIES; SIMILAR TO 10/25/13; ; Electronically Signed On 06-18-2016 12:26:03 EST by Gonzalo Hidalgo; Radiology Order: Chest, 2 View (pa\E\lat) Test: Chest, 2 View (pa\E\lat) REASON FOR EXAMINATION: Chest Pain;Cough; Clinical: Cough .; ; Comparison: 06/15/2015 .; ; Technique: PA and lateral.; ; Findings:; The mediastinum and cardiac silhouette are normal. The lung pollard are clear and; without acute consolidation, effusion, or pneumothorax. The skeletal structures; are intact and normal.; ; Impression:; 1. No acute cardiopulmonary process.; ; ; Signed by; Dave Williamson MD 06/18/2016 01:11 P; Outcome: 13:23 Discharge ordered by Provider. 13:35 Discharge Assessment: Patient awake and alert. Oriented to person, place and time. aa3 Patient verbalized understanding of disposition instructions. Patient has no functional deficits. patient administered narcotics - no. The following High Risk Discharge criteria are identified: None. Discharged to home ambulatory, with significant other. Condition: good. Discharge instructions given to patient, Instructed on discharge instructions, follow up and referral plans. medication usage, Demonstrated understanding of instructions, medications, Pt was receptive of discharge instructions/ teaching. Prescriptions given X 3. No special radiology studies were completed. Property :Personal belongings accompany Pt. 13:38 Patient left the ED. aa3 Signatures: Dispatcher [employer] EDGA Amilcar Butcher, Scot Ellison lg Dom Palacios, TOWER CONTROL OPERATOR TOWER CONTROL OPERATOR Rei Brody RN RN mlb1 Meghan GreenRN RN pml Jessica Moser Marlynn mm15 Nancy Alan RN RN aa3 Mj Lainez, THELMA MODEL AND PATTERN SUPERVISOR Jayy Houston,RT RT cs15 Mindy Howard Corrections: (The following items were deleted from the chart) 12:41 12:41 Aspirin Chewable Tablet 324 mg PO pml pml Chart Complete MTDD
--- NOTE | 2016-06-20 14:40 | EDDOCDS ---
Physician Documentation [facility] Name: Andrés Brownlee Age: 60 yrs Sex: Male : 1955 Arrival Date: 06/18/2016 Time: 12:05 Bed 5 Private MD: Unknown, Family Dr Disposition: 06/18/16 13:23 Discharged to Home/Self Care. Impression: Bronchitis, not specified as acute or chronic. - Condition is Stable. - Discharge Instructions: Acute Bronchitis, Metered Dose Inhaler with Spacer. - Prescriptions for Pulmicort Flexhaler 180 mcg/actuation Inhalation aerosol powdr breath activated - inhale 2 puff by INHALATION route 2 times per day; 1 Inhaler. Moxifloxacin 400 mg Oral Tablet - take 1 tablet by ORAL route once daily; 5 tablet. Albuterol Sulfate 90 mcg/actuation Inhalation HFA Aerosol Inhaler - inhale 2 puff by INHALATION route every 4 hours As needed; 1 Inhaler. - Medication Reconciliation, Local Pharmacy Hours form. - Follow up: Private Physician; When: 1 week; Reason: Recheck today's complaints, Continuance of care. - Problem is an ongoing problem. - Symptoms are unchanged. Historical: - Allergies: no known allergies; - Home Meds: 1. albuterol sulfate 90 mcg/actuation Nebulizer HFAA 1 puff every 4-6 hours as needed 2. omeprazole 20 mg Oral cpDR 1 cap once daily (Last dose: 06/18/2016 07:00) 3. citalopram 40 mg Oral tab 1 tab once daily (Last dose: 06/18/2016 07:00) 4. hydrochlorothiazide 25 mg Oral tab 1 tab once daily (Last dose: 06/18/2016 07:00) 5. lisinopril 20 mg Oral tab 1 tab once daily (Last dose: 06/18/2016 07:00) 6. carvedilol 6.25 mg oral tab 1 tab 2 times per day (Last dose: 06/18/2016 07:00) 7. atorvastatin 20 mg oral tab 1 tab once daily (Last dose: 06/18/2016 07:00) 8. triamcinolone acetonide 0.5 % Topical crea 2 times per day bilateral legs - PMHx: Hypertension; Depression; Anxiety; Sleep Apnea w/ CPAP; GERD; chronic neck pain; shortness of breath; - PSHx: Back surgery; Hernia repair; - Social history: Smoking status: Patient states former smoker of tobacco. No barriers to communication noted. - : The pt / caregiver states he / she is not on anticoagulants. Home medication list is obtained from a discharge med list. - Exposure Risk Screening:: None identified. - Family history: Not pertinent. Vital Signs: 06/18 12:07 BP 146 / 91; Pulse 92; Resp 20; Temp 100.2(O); Pulse Ox 96% ; Weight 112.04 kg / 247.01 cmb lbs; Height 6 ft. 1 in. (185.42 cm); Pain 4/10; 13:35 BP 149 / 90; Pulse 88; Resp 18; Temp 99.3(O); Pulse Ox 99% on R/A; Pain 0/10; aa3 12:07 Body Mass Index 32.59 (112.04 kg, 185.42 cm) cmb MDM: 12:16 ECG WITH READING ER PHYS+CARDIAG ordered. EDMS 12:37 Aspirin Chewable Tablet 324 mg PO once ordered. ke 12:37 NS 0.9% 1000 ml IV at 100 mL/hr continuous ordered. ke 12:37 Can Crimper/Pulse Ox/q 30 min VS ordered. ke 12:37 IV Saline Lock ordered. ke 12:37 Rhythm Strip to chart ordered. ke 12:37 Undress patient appropriately for examination ordered. ke 12:37 Atrovent - Ipratropium 500 mcg Nebulizer once ordered. ke 12:37 Call Respiratory ordered. ke 12:38 Aspirin 324 mg PO once ordered. ke 12:38 B-Type Natiuretic Peptide Ordered. EDMS 12:38 Basic Metabolic Profile Ordered. EDMS 12:38 CBC with Diff Ordered. EDMS 12:38 Cardiac Injury Profile Ordered. EDMS 12:38 Prothrombin Time Profile\E\INR Ordered. EDMS 12:38 Troponin Ordered. EDMS 12:38 Chest, 2 View (pa\E\lat) Ordered. EDMS 12:39 Call Respiratory complete. deg 12:41 Aspirin Chewable Tablet 324 mg PO once ordered. pml 12:52 Financial registration complete. mm15 13:18 Basic Metabolic Profile Reviewed. ke 13:18 CBC with Diff Reviewed. ke 13:18 B-Type Natiuretic Peptide Reviewed. ke 13:18 Cardiac Injury Profile Reviewed. ke 13:18 Prothrombin Time Profile\E\INR Reviewed. ke 13:18 Troponin Reviewed. ke 13:18 EKG-ADULT Reviewed. ke 13:19 ON LICENSE OF [facility] Payment Agreement was scanned into [employer] and attached to record. mm15 15:34 T-Sheet-- Draft Copy was scanned into [facility] [employer] and attached to record. [facility] 06/20 11:25 ECG/EKG was scanned into [facility] [employer] and attached to record. lg Administered Medications: 06/18 12:41 Not Given (Duplicate Order): Aspirin Chewable Tablet 324 mg PO once pml 12:41 Drug: NS 0.9% 1000 ml [sodium chloride 0.9 % injection syringe] Route: IV; Rate: 100 pml mL/hr; Site: right antecubital; 13:38 Follow up: IV Status: Infusion discontinued; IV Intake: 100ml aa3 12:41 Drug: Aspirin 324 mg [aspirin 81 mg chewable tablet (4 tabs)] Route: PO; pml 13:38 Follow up: Response: No significant change. aa3 12:54 Drug: Atrovent - Ipratropium 500 mcg [ipratropium bromide 0.02 % solution for cs15 inhalation (2.5 mL)] Route: Nebulizer; 13:38 Follow up: Response: Wheezing has decreased aa3 Signatures: Dispatcher [employer] EDMS Elo Noble, Spool Cleaner Hand Unit deg Amilcar Butcher, Scot Reg lg Dom Palacios, PROFESSOR OF FOOD BIOCHEMISTRY PROFESSOR OF FOOD BIOCHEMISTRY Rei Brody RN RN mlb1 Meghan GreenRN RN pml Faith Guajardo mm15 Nancy Alan RN RN tom3 Mindy Howard Caleb RT cs15 The chart was reviewed and I authenticate all verbal orders and agree with the evaluation and treatment provided.Attachments: 13:19 ON LICENSE OF [facility] Payment Agreement mm15 15:34 T-Sheet-- Draft Copy [facility] 06/20 11:25 ECG/EKG lg Chart Complete MTDD
== END 2016-06-18 13:38 | disposition home or self-care (01) ==
LOC: M ED 12:05
DX: J20.9 Acute bronchitis, unspecified (principal); I10 Essential (primary) hypertension; F32.9 Major depressive disorder, single episode, unspecified; F41.9 Anxiety disorder, unspecified; G47.30 Sleep apnea, unspecified; K21.9 Gastro-esophageal reflux disease without esophagitis; G89.29 Other chronic pain; M54.2 Cervicalgia; Z87.891 Personal history of nicotine dependence; Z79.899 Other long term (current) drug therapy

== ENCOUNTER → 2016-06-18 | Outpatient (REF) | payer OTHER ==
[~2016-06-18] MED LIST: ASPI81TA85 PO; CARV6.25 PO; CELE40TA PO; HYDR25TAB PO; LIPI20TA PO; LISI-538 PO; NAPR500T2 PO; RANI15TA PO; TYLE325T5 PO
== END ==
LOC: M SFHCLERA 11:33
PROVIDERS: ATTEND Nurse Practitioner Family
DX: R68.89 Other general symptoms and signs (principal)

== ENCOUNTER → 2016-07-28 | Outpatient (REF) | payer OTHER ==
[2016-07-28 11:50] LABS: MEAN CORPUSCULAR HEMOGLOBIN 30.3 pg (27.0-33.0); MEAN CORPUSCULAR HGB CONC 34.4 g/dl (32.0-36.5); RED CELL DISTRIBUTION WIDTH 13.4 % (11.5-14.5); WHITE BLOOD COUNT 7.5 K/mm3 (4.0-10.0)
[2016-07-28 12:15] LABS: ANION GAP 8 MEQ/L (8-16); BLOOD UREA NITROGEN 12 MG/DL (7-18); CARBON DIOXIDE LEVEL 31 MEQ/L (21-32); CHLORIDE LEVEL 99 MEQ/L (98-107); CREATININE FOR GFR 1.21 MG/DL (0.70-1.30); GLOMERULAR FILTRATION RATE > 60.0 (>49); GLUCOSE, FASTING 97 MG/DL (80-110); POTASSIUM SERUM 4.9 MEQ/L (3.5-5.1); SODIUM LEVEL 138 MEQ/L (136-145)
== END ==
LOC: M SFHCLERA 07:52
PROVIDERS: ATTEND Family Medicine
DX: R06.02 Shortness of breath (principal)

== ENCOUNTER → 2017-01-30 | Outpatient (REF) | payer OTHER ==
[~2017-01-30] MED LIST changes: -NAPR500T2 PO; +NAPR500T3 PO
== END ==
LOC: M SFHCLERA 20:19
PROVIDERS: ATTEND Nurse Practitioner Family
DX: L03.031 Cellulitis of right toe (principal)

== ENCOUNTER → 2017-04-11 | Outpatient (REF) | payer OTHER ==
[2017-04-11 11:20] LABS: MEAN CORPUSCULAR HEMOGLOBIN 30.5 pg (27.0-33.0); MEAN CORPUSCULAR HGB CONC 34.3 g/dl (32.0-36.5); MEAN CORPUSCULAR VOLUME 88.9 fl (80.0-96.0); PLATELET COUNT, AUTOMATED 286 10^3/uL (150-450); RED CELL DISTRIBUTION WIDTH 12.7 % (11.5-14.5); WHITE BLOOD COUNT 4.5 10^3/uL (4.0-10.0)
[2017-04-11 11:46] LABS: CALCIUM LEVEL 10.3 MG/DL (8.8-10.2); CREATININE FOR GFR 1.3 MG/DL (0.70-1.30); GLOMERULAR FILTRATION RATE 59.4 (>49)
[2017-04-11 11:47] LABS: POTASSIUM SERUM 5.7 MEQ/L (3.5-5.1)
== END ==
LOC: M SFHCLERA 08:12
PROVIDERS: ATTEND Family Medicine
DX: R06.02 Shortness of breath (principal); I10 Essential (primary) hypertension

== ENCOUNTER → 2017-04-15 | Outpatient (REF) | payer OTHER ==
[2017-04-15 20:19] LABS: ANION GAP 5 MEQ/L (8-16); BLOOD UREA NITROGEN 16 MG/DL (7-18); CALCIUM LEVEL 9.4 MG/DL (8.8-10.2); CARBON DIOXIDE LEVEL 31 MEQ/L (21-32); CHLORIDE LEVEL 99 MEQ/L (98-107); CREATININE FOR GFR 1.18 MG/DL (0.70-1.30); GLOMERULAR FILTRATION RATE > 60.0 (>49); GLUCOSE, FASTING 109 MG/DL (80-110); POTASSIUM SERUM 4.6 MEQ/L (3.5-5.1); SODIUM LEVEL 135 MEQ/L (136-145)
== END ==
LOC: M SFHCLERA 10:17
PROVIDERS: ATTEND Family Medicine
DX: E87.5 Hyperkalemia (principal)

== ENCOUNTER 2018-01-11 07:39 | Day surgery (SDC) | payer OTHER ==
[2018-01-11] MEDS: NS 1,000 ML IV (08:07)
[2018-01-11] MEDS ORDERED: LIDOCAINE 2% INJ 100 MG/5 ML SDV (FOR ANES.) As Ordered (08:27)
[2018-01-11] MEDS ORDERED: PROPOFOL 200 MG/20 ML VIAL As Ordered (08:32)
== END 2018-01-11 09:19 | disposition home or self-care (01) ==
LOC: M OPP 07:39
DX: R19.7 Diarrhea, unspecified (principal); K64.8 Other hemorrhoids; I10 Essential (primary) hypertension; E78.5 Hyperlipidemia, unspecified; E16.2 Hypoglycemia, unspecified; K58.9 Irritable bowel syndrome, unspecified; K21.9 Gastro-esophageal reflux disease without esophagitis; R12 Heartburn; M19.90 Unspecified osteoarthritis, unspecified site; F41.9 Anxiety disorder, unspecified; F32.9 Major depressive disorder, single episode, unspecified; J44.9 Chronic obstructive pulmonary disease, unspecified; G47.30 Sleep apnea, unspecified; Z87.891 Personal history of nicotine dependence; Z88.5 Allergy status to narcotic agent; Z88.2 Allergy status to sulfonamides; Z88.8 Allergy status to other drugs, medicaments and biological substances; Z79.899 Other long term (current) drug therapy; Z80.1 Family history of malignant neoplasm of trachea, bronchus and lung; Z80.3 Family history of malignant neoplasm of breast
CPT/HCPCS: 45380

== ENCOUNTER → 2018-04-10 | Outpatient (REF) | payer OTHER, SELFPAY ==
[~2018-04-10] MED LIST changes: +CLAR1TAB13 PO; +DICY20TA PO; +FLUO40CA PO; +IBUP-1022 PO; +LOPE2CAP PO; +LOVA20TA2 PO; +NAPR-885 PO; -NAPR500T3 PO; +OMEP20CA3 PO; +PHAZ1CAP7 PO; +TYLE500T78 PO
[2018-04-10 12:06] LABS: ALBUMIN 4.1 GM/DL (3.2-5.2); BILIRUBIN,TOTAL 0.5 MG/DL (0.2-1.0); CHOLESTEROL RISK RATIO 3.418 (<5); CREATININE FOR GFR 1.31 MG/DL (0.70-1.30); GLOMERULAR FILTRATION RATE 58.6 (>49); POTASSIUM SERUM 4.9 MEQ/L (3.5-5.1); THYROID STIMULATING HORMONE 0.711 uIU/ML (0.358-3.740); TOTAL PROTEIN 7.4 GM/DL (6.4-8.2)
[2018-04-10 12:18] LABS: HEMOGLOBIN A1c 5.9 %
[2018-04-11 14:14] LABS: TESTOSTERONE FREE (DIRECT) 11.7 pg/mL (6.6-18.1)
== END ==
LOC: M SFHCLERA 08:03
PROVIDERS: ATTEND Family Medicine
DX: R68.82 Decreased libido (principal); E78.00 Pure hypercholesterolemia, unspecified; I10 Essential (primary) hypertension; F32.9 Major depressive disorder, single episode, unspecified

== ENCOUNTER → 2018-10-09 | Outpatient (REF) | payer MEDICARE ==
[~2018-10-09] MED LIST changes: +HYDR-2541 PO
[2018-10-09 12:56] LABS: BLOOD UREA NITROGEN 17 MG/DL (7-18); CALCIUM LEVEL 10.1 MG/DL (8.8-10.2); CARBON DIOXIDE LEVEL 29 MEQ/L (21-32); CHLORIDE LEVEL 102 MEQ/L (98-107); CREATININE FOR GFR 1.19 MG/DL (0.70-1.30); GLOMERULAR FILTRATION RATE > 60.0 (>49); GLUCOSE, FASTING 114 MG/DL (70-100); POTASSIUM SERUM 4.9 MEQ/L (3.5-5.1); SODIUM LEVEL 136 MEQ/L (136-145)
== END ==
LOC: M SFHCLERA 08:18
PROVIDERS: ATTEND Family Medicine
DX: R35.1 Nocturia (principal); I10 Essential (primary) hypertension
CPT/HCPCS: 80048; G0103; G0463

== ENCOUNTER 2019-01-14 18:02 | Emergency (ER) | payer MEDICARE ==
[~2019-01-14] VITALS: Ht 188 cm; Wt 112.7 kg
--- NOTE | 2019-01-14 19:43 | REPVR ---
PROCEDURE INFORMATION: Exam: US Duplex Left Lower Extremity Veins, Limited Exam date and time: 01/14/2019 6:23 PM Clinical history: 63 years old, male; Pain; Leg, lower; Left; Additional info: Rule out dvt left leg TECHNIQUE: Imaging protocol: Real-time Duplex ultrasound of the Left Lower Extremity with 2-D berger scale, color Doppler flow and spectral waveform analysis with image documentation. Limited exam focused on the left lower extremity veins. COMPARISON: No relevant prior studies available. FINDINGS: Left deep veins: The common femoral, femoral and popliteal veins are patent without thrombus. Normal compressibility, augmentation response and Doppler waveforms. Left superficial veins: Saphenofemoral junction is patent without thrombus. Soft tissues: Unremarkable. IMPRESSION: No evidence of deep vein thrombosis from the left common femoral to the popliteal veins. Electronically signed by: Primitivo Rivera On 01/14/2019 19:42:43 PM
[2019-01-14 23:45] LABS: BASO % 0.5 % (0.0-1.0); EOS # 0.2 10^3/uL (0.0-0.5); EOS % 2.4 % (0.0-3.0); HEMATOCRIT 40.3 % (42.0-52.0); HEMOGLOBIN 13.5 g/dl (13.5-17.5); LYMPH # 1.4 10^3/uL (1.5-5.0); LYMPH % 20.5 % (24.0-44.0); MEAN CORPUSCULAR HEMOGLOBIN 30.5 pg (27.0-33.0); MEAN CORPUSCULAR HGB CONC 33.5 g/dl (32.0-36.5); MEAN CORPUSCULAR VOLUME 91.2 fl (80.0-96.0); MONO # 0.7 10^3/uL (0.0-0.8); MONO % 10.5 % (0.0-5.0); NEUTROPHILS # 4.3 10^3/uL (1.5-8.5); NEUTROPHILS % 65.6 % (36.0-66.0); PLATELET COUNT, AUTOMATED 214 10^3/uL (150-450); RED BLOOD COUNT 4.42 10^6/uL (4.30-6.10); WHITE BLOOD COUNT 6.6 10^3/uL (4.0-10.0)
[2019-01-15 00:10] LABS: BLOOD UREA NITROGEN 22 MG/DL (7-18); CALCIUM LEVEL 9.3 MG/DL (8.8-10.2); CARBON DIOXIDE LEVEL 29 MEQ/L (21-32); CHLORIDE LEVEL 103 MEQ/L (98-107); CK-MB VALUE MASS 1.4 NG/ML (<3.6); CPK CREATINE PHOSPHOKINASE 103 U/L (39-308); CREATININE FOR GFR 1.27 MG/DL (0.70-1.30); GLOMERULAR FILTRATION RATE > 60.0 (>49); GLUCOSE, FASTING 89 MG/DL (70-100); MB/CK RELATIVE INDEX 1.36 (< OR =4); POTASSIUM SERUM 3.9 MEQ/L (3.5-5.1); SODIUM LEVEL 137 MEQ/L (136-145); TROPONIN I < 0.02 NG/ML (< 0.10)
[2019-01-15] MEDS ORDERED: NS 1,000 ML IV SCH (00:45)
[2019-01-15] MEDS ORDERED: ISOVUE-370 76% 100ML VIAL (Q9967) As Ordered ONE (01:08)
--- NOTE | 2019-01-15 01:57 | REPVR ---
PROCEDURE INFORMATION: Exam: CT Angiography Chest With Contrast Exam date and time: 01/14/2019 11:03 PM Clinical history: 63 years old, male; Chest pain; Type not specified; Additional info: Elevated dimer, cp, SOB TECHNIQUE: Imaging protocol: Computed tomographic angiography of the chest with intravenous contrast. 3D rendering: MIP reconstructed images were created and reviewed. Radiation optimization: All CT scans at this facility use at least one of these dose optimization techniques: automated exposure control; mA and/or kV adjustment per patient size (includes targeted exams where dose is matched to clinical indication); or iterative reconstruction. Contrast material: ISO; Contrast volume: 75 ml; Contrast route: AC; COMPARISON: CR Chest, 2 view PA, Lat 06/18/2016 1:11 PM FINDINGS: Pulmonary arteries: Artifact limits evaluation of a proximal lobar pulmonary arterial branch to the right upper lobe. The main pulmonary trunk, right/left main pulmonary arteries, and the remaining proximal lobar branches demonstrate no definite intraluminal filling defect to suggest pulmonary embolism. Aorta: Mild atherosclerosis and mural thrombus involving the thoracic aorta. No aneurysm or dissection of the thoracic aorta. Lungs: Mild emphysematous changes are identified within the lungs bilaterally, which are predominantly centrilobular. Within the right middle lobe on series 401, image 102, there is a 5 mm nodule. More inferiorly within the right middle lobe, a 1.3 cm hyperdense calcified lung nodule is visualized. Mild atelectatic changes within both lower lobes of the lung. A 3 mm pleurally based nodules identified within the right lung on series 401, image 88. A few additional small nodules are identified in the right middle lobe. Within the left lower lobe, there is a 6 mm nodule. Within the superior segment of the left lower lobe, a 3-4 mm nodule is visualized. Pleural space: No pneumothorax. No pleural effusion. Heart: No cardiomegaly. No pericardial effusion. Liver: There is mild hypodense fatty infiltration of the liver. Within the medial segment of the left hepatic lobe, there is a 1.4 x 1.1 x 2.0 cm hypodense lesion. This lesion is incompletely characterized on this study. Lymph nodes: No enlarged lymph nodes. Bones/joints: Mild convexity of the thoracic spine to the right. There is a severe compression fracture of the L1 vertebral body. A mild decrease of vertebral height is identified at multiple thoracic levels. This includes T2, T7, T8, and T9, with a slight decrease in vertebral height at T6. The acuity of these compression deformities is indeterminate. Hypertrophic degenerative changes are noted within the spine. Soft tissues: Mild retroareolar increased density suggestive of gynecomastia. IMPRESSION: 1. Artifact limits evaluation of a proximal lobar pulmonary arterial branch to the right upper lobe. The main pulmonary trunk, right/left main pulmonary arteries, and the remaining proximal lobar branches demonstrate no definite intraluminal filling defect to suggest pulmonary embolism. 2. There is a severe compression fracture of the L1 vertebral body. A mild decrease of vertebral height is identified at multiple thoracic levels. The acuity of these compression deformities is indeterminate. Clinical correlation and correlation with prior studies recommended. 3. Mild emphysematous changes are identified within the lungs bilaterally, which are predominantly centrilobular. 4. Mild atelectatic changes within both lower lobes of the lung. 5. Scattered lung nodules are noted above. For patients at low risk (minimal or absent history of smoking and of other known risk factors), recommend CT at 3-6 months, then consider CT at 18-24 months. For patients at high risk (history of smoking or of other known risk factors), recommend CT at 3-6 months, then CT at 18-24 months. (Nicolas, et al., Fleischner Society, 2017) 6. There is mild hypodense fatty infiltration of the liver. Within the medial segment of the left hepatic lobe, there is a 1.4 x 1.1 x 2.0 cm hypodense lesion. This lesion is incompletely characterized on this study. A nonemergent MRI of the abdomen with/without contrast is recommended. 7. Additional findings described above. Electronically signed by: Primitivo Rivera On 01/15/2019 01:57:00 AM
[2019-01-15 03:00] LABS: CK-MB VALUE MASS 1.4 NG/ML (<3.6); CPK CREATINE PHOSPHOKINASE 91 U/L (39-308); MB/CK RELATIVE INDEX 1.54 (< OR =4); TROPONIN I < 0.02 NG/ML (< 0.10)
[2019-01-15 03:10] VITALS: BP 163/82
--- NOTE | 2019-01-15 17:40 | ECGEPIP ---
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
--- NOTE | 2019-01-16 10:32 | ED PDOC ---
Post-Departure Follow-Up dr love faxed forma report of cta chest for fu Harish Loving MD Jan 16, 2019 10:32
== END 2019-01-15 03:19 | disposition home or self-care (01) ==
LOC: M ED 18:02
DX: E86.0 Dehydration (principal); N19 Unspecified kidney failure; M79.89 Other specified soft tissue disorders; R91.8 Other nonspecific abnormal finding of lung field; R07.89 Other chest pain; F43.0 Acute stress reaction; R79.1 Abnormal coagulation profile; J98.11 Atelectasis; R06.02 Shortness of breath; K76.0 Fatty (change of) liver, not elsewhere classified; I10 Essential (primary) hypertension; E78.5 Hyperlipidemia, unspecified; K21.9 Gastro-esophageal reflux disease without esophagitis; J44.9 Chronic obstructive pulmonary disease, unspecified; K58.9 Irritable bowel syndrome, unspecified; G47.33 Obstructive sleep apnea (adult) (pediatric); F41.9 Anxiety disorder, unspecified; F32.9 Major depressive disorder, single episode, unspecified; M54.9 Dorsalgia, unspecified; Z87.891 Personal history of nicotine dependence; Z88.5 Allergy status to narcotic agent; Z88.2 Allergy status to sulfonamides; Z79.899 Other long term (current) drug therapy
CPT/HCPCS: 36415; 71275; 72040; 80048; 82550; 82553; 84484; 85025; 85379; 93005; 93971; 99284; G0463; Q9967

== ENCOUNTER → 2019-01-14 | Outpatient (CLI) | payer MEDICARE ==
[~2019-01-14] MED LIST changes: -OMEP20CA3 PO; +OMEP20CA4 PO
== END ==
LOC: M RAD 17:43
PROVIDERS: ATTEND Family Medicine
DX: R79.89 Other specified abnormal findings of blood chemistry (principal); Z53.8 Procedure and treatment not carried out for other reasons

== ENCOUNTER → 2019-01-14 | Outpatient (REF) | payer MEDICARE | LOC: M SFHCLERA 08:09 | PROVIDERS: ATTEND Family Medicine | DX: M79.662 Pain in left lower leg (principal) ==

== ENCOUNTER → 2019-01-14 | Outpatient (CLI) | payer MEDICARE ==
--- NOTE | 2019-01-14 09:39 | REP ---
CERVICAL SPINE: Three AP and lateral views of the cervical spine are performed. C7 is not visualized on the lateral view. No compression fracture is seen. There is minimal anterior listhesis of C4 on C5 and C5 on C6 of a couple of millimeters. This is likely due to posterior facet arthropathy and ligamentous laxity. There is mild spurring of C5 and C6 with mild intervening disc space narrowing. There is diffuse narrowing, sclerosis and spurring at the posterior facet joints bilaterally. IMPRESSION: C7 not visualized on the lateral view. Diffuse significant facet arthropathy bilaterally. Mild degenerative disc change C5-6. Electronically Signed by Remberto Gamble MD 01/15/2019 09:51 A
== END ==
LOC: M LRY 08:33
PROVIDERS: ATTEND Family Medicine
DX: M50.322 Other cervical disc degeneration at C5-C6 level (principal); M25.78 Osteophyte, vertebrae; M79.662 Pain in left lower leg; G89.29 Other chronic pain

== ENCOUNTER → 2019-01-23 | Outpatient (CLI) | payer MEDICARE ==
--- NOTE | 2019-01-23 07:07 | REPVR ---
PROCEDURE INFORMATION: Exam: US Duplex Left Lower Extremity Veins, Limited Exam date and time: 01/23/2019 6:48 AM Clinical history: 63 years old, male; Edema, localized; Lower extremity, left; Additional info: Lt leg swelling ? dvt TECHNIQUE: Imaging protocol: Real-time Duplex ultrasound of the Left Lower Extremity with 2-D berger scale, color Doppler flow and spectral waveform analysis with image documentation. Limited exam focused on the left lower extremity veins. COMPARISON: US PV-Yoav 01/14/2019 6:27 PM FINDINGS: Left deep veins: Unremarkable. The common femoral, femoral, proximal profunda femoral and popliteal veins are patent without thrombus. Normal Doppler waveforms. Normal compressibility and/or augmentation response. Left superficial veins: Unremarkable. Saphenofemoral junction is patent without thrombus. Soft tissues: Unremarkable. IMPRESSION: No acute findings. No evidence of deep vein thrombosis. Electronically signed by: Jaylon Puckett On 01/23/2019 07:06:40 AM
== END ==
LOC: M RAD 06:30
DX: R22.41 Localized swelling, mass and lump, right lower limb (principal)

== ENCOUNTER → 2019-01-29 | Outpatient (REF) | payer MEDICARE ==
[2019-01-30 10:07] LABS: HEPATITIS A ANTIBODY IGM NEGATIVE (NEGATIVE); HEPATITIS B CORE ANTIBODY IGM NEGATIVE (NEGATIVE); HEPATITIS B SURFACE ANTIGEN NEGATIVE (NEGATIVE); HEPATITIS C VIRUS ABY INDEX 0.1 INDEX (<0.8)
[2019-02-01 00:06] LABS: AFP TUMOR TOTAL 4.5 ng/mL (0.0-8.0)
== END ==
LOC: M SFHCLERA 07:53
PROVIDERS: ATTEND Family Medicine
DX: K76.9 Liver disease, unspecified (principal); Z11.59 Encounter for screening for other viral diseases
CPT/HCPCS: 82107; 86705; 86709; 86803; 87340; 90682; G0008; G0463

== ENCOUNTER → 2019-02-06 | Outpatient (REF) | payer MEDICARE ==
[2019-02-06 12:24] LABS: CREATININE FOR GFR 1.33 MG/DL (0.70-1.30); GLOMERULAR FILTRATION RATE 57.4 (>49)
== END ==
LOC: M SFHCLERA 07:52
PROVIDERS: ATTEND Family Medicine
DX: R79.89 Other specified abnormal findings of blood chemistry (principal)

== ENCOUNTER → 2019-02-13 | Outpatient (CLI) | payer MEDICARE ==
[~2019-02-13] MED LIST changes: +PROHANCE 279.3MG/ML 15ML VIAL (A9576) As Ordered ONE
--- NOTE | 2019-02-13 10:51 | REP ---
MRI LIVER WITH AND WITHOUT CONTRAST: HISTORY: Hypodense lesion on CT angiogram of the chest 01/15/2019. TECHNIQUE: Multiple sequences obtained in the axial and coronal planes prior to and following the intravenous administration of 11 mL ProHance. Study is limited due to patient motion. In the area of the suspected lesion in the left lobe of the liver medially and inferiorly, there is slight hyperintense signal on the T2-weighted images with no abnormal signal on the T2 fat sat images. There is low signal in that area on [id number] images as well as on the pre- and postcontrast T1 fat sat images. The area measures approximately 1.6 cm. There is no enhancement. The findings are compatible with focal fatty infiltration. No enhancing liver lesion is seen. Spleen is normal in size with no intrinsic abnormality. The adrenals, pancreas, and visualized kidneys are unremarkable. No adenopathy or free fluid is seen in the visualized abdomen. IMPRESSION: Hypodense lesion on the CT angiogram in the medial segment of the left lobe of the liver inferiorly and posteriorly corresponds to an area of focal fatty infiltration with no suspicious enhancing liver mass. Electronically Signed by Remberto Gamble MD 02/15/2019 12:42 A
== END ==
LOC: M RAD 08:19
PROVIDERS: ATTEND Family Medicine
DX: K76.0 Fatty (change of) liver, not elsewhere classified (principal)
CPT/HCPCS: 74183; A9576

== ENCOUNTER → 2019-02-19 | Outpatient (CLI) | payer MEDICARE ==
[~2019-02-19] MED LIST changes: -PROHANCE 279.3MG/ML 15ML VIAL (A9576) As Ordered ONE
--- NOTE | 2019-02-19 18:56 | REP ---
Clinical: Pain. Technique: AP, lateral, bilateral oblique views of the left first toe. Findings: Cortical irregularity chondrocalcinosis and soft tissue swelling at the first metatarsophalangeal joint along with subchondral sclerosis, chondrocalcinosis and joint space narrowing at the first MTP and PIP joints suggests inflammatory and osteoarthritic changes. No acute fracture dislocation. Impression: Inflammatory and osteoarthritic degenerative changes. Electronically Signed by Dave Williamson MD 02/19/2019 06:48 P
== END ==
LOC: M LRY 18:26
PROVIDERS: ATTEND Nurse Practitioner Family
DX: M19.072 Primary osteoarthritis, left ankle and foot (principal); M79.675 Pain in left toe(s)
CPT/HCPCS: 73660; 80048; 84550; G0463

== ENCOUNTER → 2019-02-19 | Outpatient (REF) | payer MEDICARE ==
[2019-02-19 20:52] LABS: BLOOD UREA NITROGEN 22 MG/DL (7-18); CALCIUM LEVEL 9.1 MG/DL (8.8-10.2); CARBON DIOXIDE LEVEL 28 MEQ/L (21-32); CHLORIDE LEVEL 101 MEQ/L (98-107); CREATININE FOR GFR 1.09 MG/DL (0.70-1.30); GLOMERULAR FILTRATION RATE > 60.0 (>49); GLUCOSE, FASTING 100 MG/DL (70-100); POTASSIUM SERUM 3.9 MEQ/L (3.5-5.1); SODIUM LEVEL 135 MEQ/L (136-145); URIC ACID 8.2 MG/DL (3.5-7.2)
== END ==
LOC: M SFHCLERA 19:13
PROVIDERS: ATTEND Nurse Practitioner Family
DX: M79.675 Pain in left toe(s) (principal)

== ENCOUNTER → 2019-04-30 | Outpatient (CLI) | payer MEDICARE ==
[~2019-04-30] MED LIST changes: +OMEP-172 PO; -OMEP20CA4 PO
--- NOTE | 2019-04-30 17:50 | REP ---
CT chest without contrast: History: Nonspecific abnormal finding of the lung field. Comparison chest CT study January 15, 2019. CT findings: Digital preliminary crm manager radiograph demonstrates granulomatous calcification at the right base. There is no evidence of pleural or pericardial effusion. No hilar or mediastinal mass or adenopathy is observed. Normal adrenal glands are seen. Visualized upper abdominal structures are unremarkable. There is mild vascular calcification. On lung window settings there are scattered subcentimeter stable pulmonary nodules. There is a 6 mm pulmonary nodule in the left lower lobe on page 68 of 116 series 201 of today's study unchanged from prior study. There is a 6 mm nodule in the right middle lobe on page 51. There is a subpleural 4 mm nodule in the left lower lobe on page 46 and there is a similar 4 mm subpleural nodule in the right upper lobe on page 42. These are all unchanged from the January 15, 2019 prior study. No new pulmonary nodule is appreciated. There are old healed rib fractures noted on the right. No bony destructive lesion is seen. Impression: Stable subcentimeter bilateral pulmonary nodules the largest of which measures 6 mm. Six to a 9-month follow-up can be considered. Electronically Signed by Christiano Mevlin MD 04/30/2019 06:23 P
== END ==
LOC: M RAD 15:16
PROVIDERS: ATTEND Internal Medicine Pulmonary Disease
DX: R91.8 Other nonspecific abnormal finding of lung field (principal)

== ENCOUNTER → 2019-06-15 | Outpatient (CLI) | payer MEDICARE ==
[~2019-06-15] MED LIST changes: -OMEP-172 PO; +OMEP1CAP73 PO
== END ==
LOC: M SLEEP 20:00
PROVIDERS: ATTEND Internal Medicine Pulmonary Disease
DX: G47.33 Obstructive sleep apnea (adult) (pediatric) (principal)

== ENCOUNTER → 2019-12-09 | Outpatient (REF) | payer MEDICARE ==
[~2019-12-09] MED LIST changes: -ASPI81TA85 PO; +ASPI81TA86 PO
[2020-02-03 22:15] LABS: HEMOGLOBIN A1c 5.7 %
[2020-02-03 23:52] LABS: BLOOD UREA NITROGEN 17 MG/DL (7-18); CALCIUM LEVEL 9.2 MG/DL (8.8-10.2); CARBON DIOXIDE LEVEL 27 MEQ/L (21-32); CHLORIDE LEVEL 106 MEQ/L (98-107); CHOLESTEROL LEVEL 170 MG/DL (<200); CHOLESTEROL RISK RATIO 3.269 (<5); CREATININE FOR GFR 1.11 MG/DL (0.70-1.30); GLOMERULAR FILTRATION RATE > 60.0 (>49); GLUCOSE, FASTING 89 MG/DL (70-100); HDL CHOLESTEROL 52 MG/DL (>40); LDL CHOLESTEROL 77 MG/DL (<100); NON-HDL-C 118 MG/DL; POTASSIUM SERUM 4.6 MEQ/L (3.5-5.1); SODIUM LEVEL 139 MEQ/L (136-145); TRIGLYCERIDES LEVEL 207 MG/DL (<150)
== END ==
LOC: M SFHCLERA 10:41
PROVIDERS: ATTEND Family Medicine
DX: Z13.1 Encounter for screening for diabetes mellitus (principal); E78.5 Hyperlipidemia, unspecified; I10 Essential (primary) hypertension; Z79.899 Other long term (current) drug therapy

== ENCOUNTER → 2020-01-03 | Outpatient (REF) | payer MEDICARE | LOC: M LAB REF 17:15 | PROVIDERS: ATTEND Dermatology | DX: L30.8 Other specified dermatitis (principal) | CPT/HCPCS: 11102; 88305; G0463 ==

== ENCOUNTER → 2020-01-29 | Outpatient (CLI) | payer MEDICARE ==
--- NOTE | 2020-02-03 10:09 | REP ---
CT CHEST WITHOUT CONTRAST HISTORY: Other nonspecific abnormal finding of lung field. COMPARISON: Chest CT studies include 04/30/2019, 01/15/2019. CT FINDINGS: Todays CT images demonstrate one year stability in each of the scattered bilateral subcentimeter pulmonary nodules previously identified on 01/15/2019. No new pulmonary nodule is appreciated. The largest of these measures 6 mm. No pleural effusion or pericardial effusion is seen. No hilar or mediastinal mass or adenopathy is observed. Normal adrenal glands. The visualized upper abdominal structures are unremarkable. No bony destructive lesion is appreciated. IMPRESSION: Multiple stable subcentimeter pulmonary nodules observed bilaterally unchanged from 01/15/2019 prior study. Consider one year follow-up to document two years of stability. MTDD
== END ==
LOC: M RAD 08:18
PROVIDERS: ATTEND Internal Medicine Pulmonary Disease
DX: R91.8 Other nonspecific abnormal finding of lung field (principal)

== ENCOUNTER 2020-05-11 17:28 | Emergency (ER) | payer MEDICARE ==
[~2020-05-11] VITALS: Ht 185.4 cm; Wt 112.3 kg
[~2020-05-11 17:28] MED LIST changes: -DICY20TA PO; +DICY20TA3 PO; +HYDR-3490 PO; -HYDR25TAB PO; -LISI-538 PO; +LISI20TA33 PO
--- OUTSIDE RECORDS SUMMARY | 2020-05-11 17:36 | CCD ---
Author Author [facility] Organization [facility] Address Unknown Phone Unavailable Care Team Providers Care Business Analysis Consultant Name Role Phone Joshua Hernandes Unavailable PROBLEMS Type Condition ICD9-CM Code SNF05-DY Code Onset Dates Condition S tatus SNOMED Code Notes Problem Chronic pain G89.29 Active 92110929 Problem JERE (obstructive sleep apnea) G47.33 Active 78 874603 Problem Elevated cholesterol E78.0 Active 77880565 Problem Depression, unspecified depression type F32.9 Active 16926183 Problem Essential (primary) hypertension I10 Active 02190811 Problem Chronic obstructive pulmonary disease, unspecified COPD ty pe J44.9 Active 54932604 Problem Obstructive sleep apnea G47.33 Active 16665751 Problem Gastroesophageal reflux disease without esophagitis K21.9 Active 552013789 Problem Hyperlipidemia, unspecified hyperlipidemia type E7 8.5 Active 29036140 Problem Chronic GERD K21.9 Active 479752432 Problem Otitis externa of both ears, unspecified chronic ity, unspecified type H60.93 Active 7718177 Problem Other chronic pain G89.29 Active 25790221 Problem Pulmonary nodule R91.1 Active 762614916 Problem Liver lesion K76.9 Active 387395349 Problem 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 M 10.072 Active 98884886 Problem Essential hypertension I10 Active 37625675 ALLERGIES Allergen (clinical drug ingredient) Drug/Non Drug Allergy do cumented on EMR Reaction Allergy Type Onset Date Status codeine Codeine Sulfate([facility] Code:[address]-49) Nausea/Vomiting Dr gann Allergy Active ENCOUNTERS from 1955 to 2020-02-25 Encounter Location Date Provider Diagnosis [facility] [address] [place] [address] Feb, Joshua Hernandes IMMUNIZATIONS Vaccine Route Administration Date Status Influenza (18 yrs & older) Flublok IM Intramuscular Jan 29, 2019 Administered Influenza (6mo & up) Fluzone IM Intramuscular Apr 11, 2017 Ad ministered SOCIAL HISTORY Tobacco Use: Social History Observation Description Date Details (start date - stop date) Former Smoker Sex Assigned At : Social History Observation Description Sex Assigned At Unknown Education: Question Answer Notes Level of Education: High School Audit Question Answer Notes Total Score: 5 Interpretation: Alcohol Education Language: Question Answer Notes Languages spoken: Zambian Christian: Question Answer Notes Christian 03 Religious Sexual Hx: Question Answer Notes Had sex in the last 12 months (vaginal, oral, or anal)? Yes Have you ever had an STD? No with Women only Use protection? No Drug and Alcohol Question Answer Notes Total Score: 0 Interpretation: No problems reported Alcohol Screening: Question Answer Notes Did you have a drink containing alcohol in the past year? No Points 0 Interpretation Negative BMI Care Goal Follow-Up Question Answer Notes Above Normal BMI Follow-Up Dietary management educatio n, guidance, and counseling Tobacco Use: Question Answer Notes Are you a: former smoker How long has it been since you last smoked? > 10 years REASON FOR REFERRAL No Information VITAL SIGNS No information MEDICATIONS Medication SIG (Take, Route, Frequency, Duration) Start Date En d Date Status Ciprofloxacin-Hydrocortisone 0.2-1 % 3 drops into affe cted ears Otic Twice a day for 7 day(s) Jan, Active Triamcinolone Acetonide 0.1 % 1 application Externally Twice a day to diffuse rash for 30 Days Dec, Active NIFEdipine ER 30 MG 1 tablet on an empty stomach Orally Once a day for 90 day(s) Mar, Active FLUoxetine HCl 40MG 1 capsule in the morning Orally Once a day for 90 days Active Claritin-D 12 Hour 5-120 MG 1 tablet as needed Orally before bedtime for 30 day(s) Active Lisinopril 40 MG 1 tablet Orally Once a day for 90 day(s) Feb, 019 Active Amitriptyline HCl 25 MG 1 tablet at bedtime Orally Once a da y for 30 day(s) Dec, Not-Taking Tylenol Active Tylenol 8 Hour Arthritis Pain 650 MG 2 tablets as needed Orally hubert ry 8 hrs Not-Taking Ventolin HFA 108 (90 Base) MCG/ACT 2 puffs as needed I nhalation every 4 hrsprn mdd16 for 30 day(s) Active Dulera 100-5 MCG/ACT 2 puffs Inhalation Twice a day Active Alavert Allergy/Sinus 5-120 MG 1 tablet as needed Orally every 12 h rs Active Hydrocortisone 0.5 % 1 application to facial rash Externally Twice a day for 10 day(s) Jan, Not-Taking Omeprazole 20 MG 1 capsule Orally Daily for 90 days Active Imodium A-D 2 MG 1 tablet as needed Orally Fo ur times a day as needed for 90 day(s) Not-Taking Indomethacin 50 MG 1 capsule with food or milk Orally TID for gout attack for 5 day(s) Jan, Not-Taking Azelastine HCl 0.1 % 1 puff in each nostril Nasally Twice a day for 30 day(s) Active Carvedilol 6.25 MG 1 tablet with food Orally in am and pm for 90 da ys Active Tylenol 325 MG 2 tablets as needed Orally every 6 hrs for 30 day(s) Not-Taking Ofloxacin 0.3 % 10 drops into affected ear Otic Once a d ay for 7 day(s) Feb, Active Lovastatin 20 MG 1 tablet with a meal Orally Once a day for 90 days Active Ibuprofen 600 MG 1 tablet Orally qd prn for 90 days Active PROCEDURES No Information RESULTS No Results REASON FOR VISIT Expensive ear drops; an alternative MEDICAL (GENERAL) HISTORY Type Description Date Medical History HTN Medical History high cholesterol Medical History depression Medical History JERE on CPAP Medical History Chronic congestion Medical History Liver lesion Surgical History Lower back surgery 2006 Surgical History hernia repair 2006 Goals Section No Information Health Concerns No Information MEDICAL EQUIPMENT No Information MENTAL STATUS No Information FUNCTIONAL STATUS No Information ASSESSMENTS No Information PLAN OF TREATMENT Medication Medication Name Sig Start Date Stop Date Ciprofloxacin-Hydrocortisone 0.2-1 % 3 drops into affe cted ears Otic Twice a day for 7 day(s) Jan, Ofloxacin 0.3 % 10 drops into affected ear Otic Once a d ay for 7 day(s) Feb, Next Appt Details Provider Name:Juliocesar Locke, 2020-03 03:30:00 PM, [address] [facility], [address] [place] [address], [place], [address], Provider Name:GuilleKobe Hernandes, 2020-06-11 03:30:00 PM, [address] [place], [address], Insurance Providers Payer Name Payer Address Payer Phone Insured Name Patient Relati onship to Insured Coverage Start Date Coverage End Date MEDICARE Part A and B [address] [place] [phone] NATIVIDAD HI self
--- OUTSIDE RECORDS SUMMARY | 2020-05-11 17:36 | CCD ---
Author Author [facility] Organization [facility] Address Unknown Phone Unavailable Care Team Providers Care Linux Kernel Engineer Name Role Phone Joshua Hernandes Unavailable PROBLEMS Type Condition ICD9-CM Code YNH12-MG Code Onset Dates Condition S tatus SNOMED Code Notes Problem Elevated cholesterol E78.0 Active 02371519 Problem Chronic pain G89.29 Active 48536430 Problem Essential (primary) hypertension I10 Active 88152894 Problem JERE (obstructive sleep apnea) G47.33 Active 78 283326 Problem Other chronic pain G89.29 Active 04218476 Problem Depression, unspecified depression type F32.9 Active 89290016 Problem Obstructive sleep apnea G47.33 Active 27622915 Problem Gastroesophageal reflux disease without esophagitis K21.9 Active 793877836 Problem Pulmonary nodule R91.1 Active 866524635 Problem Otitis externa of both ears, unspecified chronic ity, unspecified type H60.93 Active 1154530 Problem Chronic obstructive pulmonary disease, unspecified COPD ty pe J44.9 Active 04734270 Problem Seasonal allergies J30.2 Active 775708360 Problem Chronic GERD K21.9 Active 591794247 Problem Liver lesion K76.9 Active 809338211 Problem 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 M 10.072 Active 89867421 Problem Essential hypertension I10 Active 70837175 Problem Hyperlipidemia, unspecified hyperlipidemia type E7 8.5 Active 53347791 ALLERGIES Allergen (clinical drug ingredient) Drug/Non Drug Allergy do cumented on EMR Reaction Allergy Type Onset Date Status codeine Codeine Sulfate([facility] Code:[address]-75) Nausea/Vomiting Dr gann Allergy Active ENCOUNTERS from 1955 to 2020-04-28 Encounter Location Date [facility] [address] [place] [address], Joshua Hernandes IMMUNIZATIONS Vaccine Route Administration Date [...] Education Language: Question Answer Notes Languages spoken: Italian Jew: Question Answer Notes Jew 03 Orthodoxy Sexual Hx: Question Answer Notes Had sex [...] MEDICATIONS Medication SIG (Take, Route, Frequency, Duration) Notes Start Da te End Date Status Tylenol Active FLUoxetine HCl 40MG 1 capsule in the morning Orally Once a day for 90 days Active Indomethacin 50 MG 1 capsule with food or milk Orally TID for gout attack for 5 day(s) Jan, Not-Taking Lisinopril 40 MG 1 tablet Orally Once a day for 90 day(s) Feb, Active Alavert Allergy/Sinus 5-120 MG 1 tablet as needed Orally every 12 hrs Active PredniSONE 10 MG 1 tablet Orally bid Active Ibuprofen 600 MG 1 tablet Orally qd prn for 90 days Active Ofloxacin 0.3 % 10 drops into affected ear Otic Once a day for 7 day(s) Feb, Active NIFEdipine ER 30 MG 1 tablet on an empty stomach Orally Once a day for 90 day(s) Mar, Active Tylenol 8 Hour Arthritis Pain 650 MG 2 tablets as needed Orally hubert ry 8 hrs Not-Taking Tylenol 325 MG 2 tablets as needed Orally every 6 hrs for 30 day(s) Not-Taking Dulera 100-5 MCG/ACT 2 puffs Inhalation Twice a day Active Azelastine HCl 0.1 % 1 puff in each nostril Nasally Twice a day for 30 day(s) Active Amitriptyline HCl 25 MG 1 tablet at bedtime Orally Once a day fo r 30 day(s) Dec, Not-Taking Lovastatin 20 MG 1 tablet with a meal Orally Once a day for 90 days Active Hydrocortisone 0.5 % 1 application to facial rash Externally Twice a day for 10 day(s) Jan, Not-Taking Imodium A-D 2 MG 1 tablet as needed Orally Fo ur times a day as needed for 90 day(s) Not-Taking Omeprazole 20 MG 1 capsule Orally Daily for 90 days Active Carvedilol 6.25 MG 1 tablet with food Orally in am and pm for 90 days Active Ventolin HFA 108 (90 Base) MCG/ACT 2 puffs as needed I nhalation every 4 hrsprn mdd16 for 30 day(s) Active Claritin-D 12 Hour 5-120 MG 1 tablet as needed Orally before bedtime for 30 day(s) Active Triamcinolone Acetonide 0.1 % 1 application Externally Twice a day to diffuse rash for 30 Days Dec, Active Ciprofloxacin-Hydrocortisone 0.2-1 % 3 drops into affe cted ears Otic Twice a day for 7 day(s) Jan, Active PROCEDURES No Information RESULTS No Results REASON FOR VISIT covid MEDICAL (GENERAL) HISTORY Type Description Date Medical [...] Information ASSESSMENTS No Information PLAN OF TREATMENT Next Appt Details Provider Name:Joshua Hernandes, 2020-06-11 03:30:00 PM, [address] [place], [address], Insurance Providers Payer Name Payer Address Payer Phone Insured Name Patient Relati onship to Insured Coverage Start Date Coverage End Date MEDICARE Part A and B [facility] [address] [facility] [phone] [place] self
--- OUTSIDE RECORDS SUMMARY | 2020-05-11 17:36 | CCD ---
Author Author [facility] Organization [facility] Address Unknown Phone Unavailable Care Team Providers Care School Superintendent Name Role Phone Joshua Hernandes Unavailable PROBLEMS Type Condition ICD9-CM Code QFL91-JH Code Onset Dates Condition S tatus SNOMED Code Notes Problem Chronic pain G89.29 Active 68102834 Problem JERE (obstructive sleep apnea) G47.33 Active 78 008864 Problem Elevated cholesterol E78.0 Active 19839285 Problem Depression, unspecified depression type F32.9 Active 27444003 Problem Essential (primary) hypertension I10 Active 96034624 Problem Chronic obstructive pulmonary disease, unspecified COPD ty pe J44.9 Active 83145398 Problem Obstructive sleep apnea G47.33 Active 77448165 Problem Gastroesophageal reflux disease without esophagitis K21.9 Active 494233503 Problem Hyperlipidemia, unspecified hyperlipidemia type E7 8.5 Active 86206980 Problem Chronic GERD K21.9 Active 001432253 Problem Otitis externa of both ears, unspecified chronic ity, unspecified type H60.93 Active 2075531 Problem Other chronic pain G89.29 Active 41991764 Problem Pulmonary nodule R91.1 Active 148224492 Problem Liver lesion K76.9 Active 677097323 Problem 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 M 10.072 Active 29144149 Problem Essential hypertension I10 Active 95548051 ALLERGIES Allergen (clinical drug ingredient) Drug/Non Drug Allergy do cumented on EMR Reaction Allergy Type Onset Date Status codeine Codeine Sulfate([facility] Code:[address]-70) Nausea/Vomiting Dr gann Allergy Active ENCOUNTERS from 1955 to 2020-02-25 Encounter Location Date Provider Diagnosis [facility] [address] [place] [address] Jan, Joshua Hernandes IMMUNIZATIONS Vaccine Route Administration Date [...] Education Language: Question Answer Notes Languages spoken: Mosotho Quaker: Question Answer Notes Quaker 03 Latter-Day Sexual Hx: Question Answer Notes Had sex [...] Information RESULTS No Results REASON FOR VISIT Medication MEDICAL (GENERAL) HISTORY Type Description Date Medical History HTN Medical History high cholesterol Medical History depression Medical History JREE on CPAP Medical History Chronic congestion Medical [...] Feb, Next Appt Details Provider Name:Juliocesar Locke, 2019-12 - 03:30:00 PM, [address] [facility] [facility], [place], [address], Provider Name:Joshua Hernandes, 2020-06-11 03:30:00 PM, [address] [place], [address], Insurance Providers Payer Name Payer Address Payer Phone Insured Name Patient Relati onship to Insured Coverage Start Date Coverage End Date MEDICARE Part A and B [address] [facility] [phone] [place] self
--- OUTSIDE RECORDS SUMMARY | 2020-05-11 17:36 | CCD | Continuity of Care Document ---
Author Author Andrés [facility]UTHI[facility] HEARING AID FITTER Organization Unknown Address [address] [place] [address] Phone [phone] Care Team Providers Care Transitional Care Liaison Name Role Phone [facility] [employer] Problems Description No Information Available Social History Type Date Description Comments Sex Unknown ETOH Use consumes 1-2 beers per day Tobacco Use Start: Unknown End: Unknown Patient is a former smoker Tobacco Use Start: Unknown The patient has never vaped Smoking Status Reviewed: 03/28/20 The patient has never vaped Allergies, Adverse Reactions, Alerts Description No Known Drug Allergies Medications Active Medications SIG Qnty Indications Ordering Provide r Date Prednisone 20mg Tablets 1 tab twice a day for 4 days 8tabs M10.072 Syed Solorzano JR., M.D. 08/2019 Fluoxetine HCL 40mg Capsules Take 1 Capsule By Mouth Once Daily In The Morning Unkno wn Modafinil 100mg Tablets Take 1 Tablet By Mouth Once Daily In The Morning as Needed . DO Not Exceed 1 Per 24 Hours Unknown Azelastine HCL (Nasal) 137mcg/Isabela Solution Use 1 Isabela(S) In Each Nostril Twice Daily Unknown Ibuprofen 600mg Tablets Take 1 Tablet By Mouth Once Daily as Needed Unknown Lovastatin 20mg Tablets Take 1 Tablet By Mouth Once Daily With A Meal Unknown Carvedilol 6.25mg Tablets Take 1 Tablet By Mouth With Food In The Morning And In The Evening For 90 Days Unknown Lisinopril 40mg Tablets Take 1 Tablet By Mouth Once Daily Unknown Nifedipine ER 30mg Tablets ER 24HR Take 1 Tablet By Mouth Once Daily On An Empty Stomach U nknown Triamcinolone Acetonide 0.1% Cream Apply Topically Twice Daily To Diffuse Rash Unknown Claritin-D 12 Hour 5 -120mg Tablets ER 12HR Take 1 Tablet By Mouth as Needed AT Bedtime For 30 Days Unknown Albuterol Sulfate HFA 108(90Base) mcg/Act Aerosol Inhale 1 To 2 Puffs By Mouth Every 4 Hours as Needed Unknown Immunizations Description No Information Available Vital Signs Date Vital Result Comment 03/28/2020 2:57pm BP Systolic 142 mmHg BP Diastolic 92 mmHg Heart Rate 70 /min Respiratory Rate 20 /min O2 % BldC Oximetry 95 % Body Temperature 98.1 F Weight 250.00 lb Height 75 inches 6'3" BMI (Body Mass Index) 31.2 kg/m2 Pain Level 4 Results Description No Information Available Procedures Description No Information Available Medical Devices Description No Information Available Encounters Description No Information Available Assessments Date Code Description Provider 03/28/2020 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
--- OUTSIDE RECORDS SUMMARY | 2020-05-11 17:36 | CCD ---
Author Author [facility] Organization [facility] Address Unknown Phone Unavailable Care Team Providers Care Glass Cutting Machine Feeder Name Role Phone Joshua Hernandes Unavailable PROBLEMS Type Condition ICD9-CM Code SEY39-MR Code Onset Dates Condition S tatus SNOMED Code Notes Problem Elevated cholesterol E78.0 Active 90277249 Problem Chronic pain G89.29 Active 98657693 Problem Essential (primary) hypertension I10 Active 67182732 Problem JERE (obstructive sleep apnea) G47.33 Active 78 993760 Problem Chronic GERD K21.9 Active 496254033 Problem Chronic obstructive pulmonary disease, unspecified COPD ty pe J44.9 Active 10727645 Problem Obstructive sleep apnea G47.33 Active 59228710 Problem Essential hypertension I10 Active 96131025 Problem Other chronic pain G89.29 Active 88410746 Problem Hyperlipidemia, unspecified hyperlipidemia type E7 8.5 Active 16845425 Problem Depression, unspecified depression type F32.9 Active 32845520 Problem Gastroesophageal reflux disease without esophagitis K21.9 Active 471901927 Problem Pulmonary nodule R91.1 Active 406734093 Problem Liver lesion K76.9 Active 148379488 Problem 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 M 10.072 Active 49152080 ALLERGIES Allergen (clinical drug ingredient) Drug/Non Drug Allergy do cumented on EMR Reaction Allergy Type Onset Date Status codeine Codeine Sulfate([facility] Code:[address]-14) Nausea/Vomiting Dr gann Allergy Active ENCOUNTERS from 1953 to 2020-02-12 Encounter Location Date Provider Diagnosis [facility] [address] [place] [address] Jan, Joshua Hernandes Cervical pain (neck) M54.2 IMMUNIZATIONS Vaccine Route Administration Date Status Influenza [...] Education Language: Question Answer Notes Languages spoken: Cuban Uatsdin: Question Answer Notes Uatsdin 03 Sabianism Sexual Hx: Question Answer Notes Had sex [...] Duration) Start Date En d Date Status Hydrocortisone 0.5 % 1 application to facial rash Externally Twice a day for 10 day(s) Jan, Not-Taking Dulera 100-5 MCG/ACT 2 puffs Inhalation Twice a day Active Tylenol 8 Hour Arthritis Pain 650 MG 2 tablets as needed Orally hubert ry 8 hrs Not-Taking Carvedilol 6.25 MG 1 tablet with food Orally in am and pm for 90 da ys Active FLUoxetine HCl 40MG 1 capsule in the morning Orally Once a day for 90 days Active Imodium A-D 2 MG 1 tablet as needed Orally Fo ur times a day as needed for 90 day(s) Unknown Lisinopril 40 MG 1 tablet Orally Once a day for 90 day(s) Feb, 019 Active Ibuprofen 600 MG 1 tablet Orally qd prn for 90 days Active Lovastatin 20 MG 1 tablet with a meal Orally Once a day for 90 days Active Omeprazole 20 MG 1 capsule Orally Daily for 90 days Active NIFEdipine ER 30 MG 1 tablet on an empty stomach Orally Once a day for 90 day(s) Mar, Active Tylenol Active Amitriptyline HCl 25 MG 1 tablet at bedtime Orally Once a da y for 30 day(s) Dec, Unknown Tylenol 325 MG 2 tablets as needed Orally every 6 hrs for 30 day(s) Not-Taking Ventolin HFA 108 (90 Base) MCG/ACT 2 puffs as needed I nhalation every 4 hrsprn mdd16 for 30 day(s) Active Claritin-D 12 Hour 5-120 MG 1 tablet as needed Orally before bedtime for 30 day(s) Active Triamcinolone Acetonide 0.1 % 1 application Externally Twice a day to diffuse rash for 30 Days Dec, Active Indomethacin 50 MG 1 capsule with food or milk Orally TID for gout attack for 5 day(s) Jan, Not-Taking PROCEDURES No Information RESULTS No Results REASON FOR VISIT Medication MEDICAL (GENERAL) HISTORY Type Description Date Medical History HTN Medical History high cholesterol Medical History depression Medical History JERE on CPAP Medical History Chronic congestion Medical History Liver lesion Surgical History Lower back surgery 2005 Surgical History hernia repair 2006 Goals Section No Information Health Concerns No Information MEDICAL EQUIPMENT No Information MENTAL STATUS No Information FUNCTIONAL STATUS No Information ASSESSMENTS Encounter Date Diagnosis Notes Jan, Cervical pain (neck) (ICD-10 - M54.2) PLAN OF TREATMENT Medication Medication Name Sig Start Date Stop Date Ibuprofen 600 MG 1 tablet Orally qd prn for 90 days Claritin-D 12 Hour 5-120 MG 1 tablet as needed Orally before bedtime for 30 day(s) Carvedilol 6.25 MG 1 tablet with food Orally in am and pm for 90 days Triamcinolone Acetonide 0.1 % 1 application Externally Twice a day to diffuse rash for 30 Days Dec, NIFEdipine ER 30 MG 1 tablet on an empty stomach Orally Once a day for 90 day(s) Mar, Next Appt Details Provider Name:Joshua Hernandes, 2020-02-20 04:00:00 PM, [address] [place], [address], Insurance Providers Payer Name Payer Address Payer Phone Insured Name Patient Relati onship to Insured Coverage Start Date Coverage End Date MEDICARE Part A and B [address] [facility] [phone] [place]
--- OUTSIDE RECORDS SUMMARY | 2020-05-11 17:36 | CCD ---
Author Author [facility] Organization [facility] Address Unknown Phone Unavailable Care Team Providers Care Tax Evaluator Name Role Phone Joshua Hernandes Unavailable PROBLEMS Type Condition ICD9-CM Code OTL93-RP Code Onset Dates Condition S tatus SNOMED Code Notes Problem Elevated cholesterol E78.0 Active 10655954 Problem Chronic pain G89.29 Active 78361120 Problem Essential (primary) hypertension I10 Active 76618105 Problem JERE (obstructive sleep apnea) G47.33 Active 78 498588 Problem Other chronic pain G89.29 Active 29612153 Problem Depression, unspecified depression type F32.9 Active 18945082 Problem Obstructive sleep apnea G47.33 Active 80789667 Problem Gastroesophageal reflux disease without esophagitis K21.9 Active 721677011 Problem Pulmonary nodule R91.1 Active 476760166 Problem Otitis externa of both ears, unspecified chronic ity, unspecified type H60.93 Active 0388914 Problem Chronic obstructive pulmonary disease, unspecified COPD ty pe J44.9 Active 08847552 Problem Seasonal allergies J30.2 Active 921693663 Problem Chronic GERD K21.9 Active 537551149 Problem Liver lesion K76.9 Active 582398599 Problem 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 M 10.072 Active 16340595 Problem Essential hypertension I10 Active 52610311 Problem Hyperlipidemia, unspecified hyperlipidemia type E7 8.5 Active 69773562 ALLERGIES Allergen (clinical drug ingredient) Drug/Non Drug Allergy do cumented on EMR Reaction Allergy Type Onset Date Status codeine Codeine Sulfate([facility] Code:[address]-35) Nausea/Vomiting Dr gann Allergy Active ENCOUNTERS from 1955 to 2020-05-05 Encounter [facility] Date [facility] [address] [place] [address] Apr, Joshua Hernandes Essential (primary) hypertension I10 IMMUNIZATIONS Vaccine Route Administration Date Status Influenza [...] Education Language: Question Answer Notes Languages spoken: Croatian Anabaptist: Question Answer Notes Anabaptist 03 Holiness Sexual Hx: Question Answer Notes Had sex [...] Notes Start Da te End Date Status FLUoxetine HCl 40MG 1 capsule in the morning Orally Once a day for 90 days Active Ciprofloxacin-Hydrocortisone 0.2-1 % 3 drops into affe cted ears Otic Twice a day for 7 day(s) Jan, Active Indomethacin 50 MG 1 capsule with food or milk Orally TID for gout attack for 5 day(s) Jan, Not-Taking PredniSONE 10 MG 1 tablet Orally bid Active Alavert Allergy/Sinus 5-120 MG 1 tablet as needed Orally every 12 hrs Active Tylenol Active Amitriptyline HCl 25 MG 1 tablet at bedtime Orally Once a day fo r 30 day(s) Dec, Not-Taking Lisinopril 40 MG 1 tablet Orally Once a day for 90 day(s) Feb, Active Tylenol 8 Hour Arthritis Pain 650 MG 2 tablets as needed Orally hubert ry 8 hrs Not-Taking Ibuprofen 600 MG 1 tablet Orally qd prn for 90 days Active Tylenol 325 MG 2 tablets as needed Orally every 6 hrs for 30 day(s) Not-Taking Carvedilol 6.25 MG 1 tablet with food Orally in am and pm for 90 days Active Azelastine HCl 0.1 % 1 puff in each nostril Nasally Twice a day for 30 day(s) Active Triamcinolone Acetonide 0.1 % 1 application Externally Twice a day to diffuse rash for 30 Days Dec, Active Omeprazole 20 MG 1 capsule Orally Daily for 90 days Active Hydrocortisone 0.5 % 1 application to facial rash Externally Twice a day for 10 day(s) Jan, Not-Taking NIFEdipine ER 30 MG 1 tablet on an empty stomach Orally Once a day fo r 90 Active Dulera 100-5 MCG/ACT 2 puffs Inhalation Twice a day Active Ofloxacin 0.3 % 10 drops into affected ear Otic Once a day for 7 day(s) Feb, Active Ventolin HFA 108 (90 Base) MCG/ACT 2 puffs as needed I nhalation every 4 hrsprn mdd16 for 30 day(s) Active Claritin-D 12 Hour 5-120 MG 1 tablet as needed Orally before bedtime for 30 day(s) Active Imodium A-D 2 MG 1 tablet as needed Orally Fo ur times a day as needed for 90 day(s) Not-Taking Lovastatin 20 MG 1 tablet with a meal Orally Once a day for 90 days Active PROCEDURES No Information RESULTS No Results REASON FOR VISIT REFILL MEDICAL (GENERAL) HISTORY Type Description Date Medical [...] STATUS No Information ASSESSMENTS Encounter Date Diagnosis Assessment Notes Treatment Notes Treatm ent Clinical Notes Apr, Essential (primary) hypertension (ICD-10 - I10) PLAN OF TREATMENT Medication Medication Name Sig Start Date Stop Date Carvedilol 6.25 MG 1 tablet with food Orally in am and pm for 90 days NIFEdipine ER 30 MG 1 tablet on an empty stomach Orally Once a d ay for 90 Next Appt Details Provider Name:Joshua Hernandes, 2020-06-11 03:30:00 PM, [address] [facility] [place], [address], Insurance Providers Payer Name Payer Address Payer Phone Insured Name Patient Relati onship to Insured Coverage Start Date Coverage End Date MEDICARE Part A and B [facility] [address] [facility] [id number] [place] self
--- OUTSIDE RECORDS SUMMARY | 2020-05-11 17:36 | CCD | Continuity of Care Document ---
Author Author Andrés GAUTHIER SENIOR ELECTRONICS TECHNICIAN Organization Unknown Address [address] [place] [address] Phone [phone] Care Team Providers Care Gear Tooth Grinding Machine Operator Name Role Phone [facility] [place] [place] [employer] Problems Description No Information Available Social History [...] Per 24 Hours Unknown Azelastine HCL (Nasal) 137mcg/Delta Solution Use 1 Delta(S) In Each Nostril Twice Daily Unknown Ibuprofen [...] Medical Devices Description No Information Available Encounters Type Date Location Provider Dx Diagnosis Office Visit 03/28/2020 12:30p Main Office Emilie Gauthier NP M10. 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
--- OUTSIDE RECORDS SUMMARY | 2020-05-11 17:36 | CCD ---
Author Author [facility] Organization [facility] Address Unknown Phone Unavailable Care Team Providers Care Reading Efficiency Course Director Name Role Phone Joshua Hernandes Unavailable PROBLEMS Type Condition ICD9-CM Code [id number] Code Onset Dates Condition S tatus SNOMED Code Notes Problem Chronic pain G89.29 Active 09715820 Problem JERE (obstructive sleep apnea) G47.33 Active 78 579703 Problem Elevated cholesterol E78.0 Active 35202967 Problem Depression, unspecified depression type F32.9 Active 23877539 Problem Essential (primary) hypertension I10 Active 04866433 Problem Chronic obstructive pulmonary disease, unspecified COPD ty pe J44.9 Active 98402529 Problem Obstructive sleep apnea G47.33 Active 40141579 Problem Gastroesophageal reflux disease without esophagitis K21.9 Active 026786167 Problem Hyperlipidemia, unspecified hyperlipidemia type E7 8.5 Active 47127976 Problem Chronic GERD K21.9 Active 163848465 Problem Otitis externa of both ears, unspecified chronic ity, unspecified type H60.93 Active 9121604 Problem Other chronic pain G89.29 Active 61603645 Problem Pulmonary nodule R91.1 Active 547130272 Problem Liver lesion K76.9 Active 360372797 Problem 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 M 10.072 Active 48075647 Problem Essential hypertension I10 Active 42417877 ALLERGIES Allergen (clinical drug ingredient) Drug/Non Drug Allergy do cumented on EMR Reaction Allergy Type Onset Date Status codeine Codeine Sulfate([facility] Code:[address]-35) Nausea/Vomiting Dr gann Allergy Active ENCOUNTERS from 1955 to 2020-02-24 Encounter Location Date Provider Diagnosis [facility] Narinder [address] [place] [address] Feb, Joshua Hernandes IMMUNIZATIONS Vaccine Route [...] Education Language: Question Answer Notes Languages spoken: Dominican Bahai: Question Answer Notes Bahai 03 Yazdanism Sexual Hx: Question Answer Notes Had sex [...] Information RESULTS No Results REASON FOR VISIT Med refill MEDICAL (GENERAL) HISTORY Type Description Date Medical [...] Provider Name:Juliocesar Locke, 2020-03 03:30:00 PM, [address] [facility], [address] [place] [address], [place], [address], Provider Name:Joshua Hernandes, 2020-06-11 03:30:00 PM, [address] [place] [place], [address], Insurance Providers Payer Name Payer Address Payer Phone Insured Name Patient Relati onship to Insured Coverage Start Date Coverage End Date MEDICARE Part A and [address] [facility] [address] [phone] [place]
--- OUTSIDE RECORDS SUMMARY | 2020-05-11 17:36 | CCD | Continuity of Care Document ---
Author Author Andrés AGUERO PA Organization Unknown Address [address] [place] [address] [place] [address] Phone [phone] Care Team Providers Care Cardiac Cath Lab Technologist Name Role Phone [facility] Pub[facility] AUTM [phone] Problems Description No Information Available Social History Type Date Description Comments Sex Unknown ETOH Use consumes 1-2 beers per day Tobacco Use Start: Unknown End: Unknown Patient is a former smoker Tobacco Use Start: Unknown The patient has never vaped Smoking Status Reviewed: 04/18/20 The patient has never vaped Allergies, Adverse Reactions, Alerts Description No Known Drug Allergies Medications Active Medications SIG Qnty Indications Ordering Provide r Date Imodium A-D Unknown Tylenol Unknown Omeprazole 20mg Capsules DR 1 tab by mouth twice a day x14 days Unknown Dulera Unknown Nasogel Gel Unknown Alavert Unknown Albuterol Sulfate HFA 108(90Base) mcg/Act Aerosol Inhale 1 To 2 Puffs By Mouth Every 4 Hours as Needed Unknown Claritin-D 12 Hour 5 -120mg Tablets ER 12HR Take 1 Tablet By Mouth as Needed AT Bedtime For 30 Days Unknown Triamcinolone Acetonide 0.1% Cream Apply Topically Twice Daily To Diffuse Rash Unknown Nifedipine ER 30mg Tablets ER 24HR Take 1 Tablet By Mouth Once Daily On An Empty Stomach U nknown Lisinopril 40mg Tablets Take 1 Tablet By Mouth Once Daily Unknown Carvedilol 6.25mg Tablets Take 1 Tablet By Mouth With Food In The Morning And In The Evening For 90 Days Unknown Lovastatin 20mg Tablets Take 1 Tablet By Mouth Once Daily With A Meal Unknown Ibuprofen 600mg Tablets Take 1 Tablet By Mouth Once Daily as Needed Unknown Azelastine HCL (Nasal) 137mcg/Mead Solution Use 1 Mead(S) In Each Nostril Twice Daily Unknown Modafinil 100mg Tablets Take 1 Tablet By Mouth Once Daily In The Morning as Needed . DO Not Exceed 1 Per 24 Hours Unknown Fluoxetine HCL 40mg Capsules Take 1 Capsule By Mouth Once Daily In The Morning Unkno wn History Medications Prednisone 20mg Tablets 1 tab twice a day for 4 days 8tabs M10.072 Syed Solorzano JR., M.D. 08/2019 - 04/01/2020 Immunizations Description No Information Available Vital Signs Date Vital Result Comment 04/18/2020 1:10pm BP Systolic 154 mmHg BP Diastolic 102 mmHg Heart Rate 83 /min Respiratory Rate 16 /min O2 % BldC Oximetry 98 % Body Temperature 97.1 F Weight 210.00 lb Pain Level 5 03/28/2020 2:57pm BP Systolic 142 mmHg BP [...] Date Location Provider Dx Diagnosis Office Visit 04/18/2020 10:45a Main Office AURELIO Hermosillo U07.1 Covid-19 Z20.828 Contact w and exposure to ot h viral communicable diseases J45.901 Unspecified asthma with (acu te) exacerbation Office Visit 03/28/2020 12:30p Main Office Emilie Shoemaker NP M10. 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
--- OUTSIDE RECORDS SUMMARY | 2020-05-11 17:36 | CCD ---
Author Author [facility] Organization [facility] Address Unknown Phone Unavailable Care Team Providers Care Lining Mechanic Name Role Phone Joshua Hernandes Unavailable PROBLEMS Type Condition ICD9-CM Code [id number] Code Onset Dates Condition S tatus SNOMED Code Notes Problem Elevated cholesterol E78.0 Active 91450926 Problem Chronic pain G89.29 Active 38753321 Problem Essential (primary) hypertension I10 Active 06986047 Problem JERE (obstructive sleep apnea) G47.33 Active 78 439651 Problem Other chronic pain G89.29 Active 49312223 Problem Depression, unspecified depression type F32.9 Active 40502644 Problem Obstructive sleep apnea G47.33 Active 45590465 Problem Gastroesophageal reflux disease without esophagitis K21.9 Active 875568248 Problem Pulmonary nodule R91.1 Active 315144201 Problem Otitis externa of both ears, unspecified chronic ity, unspecified type H60.93 Active 2722541 Problem Chronic obstructive pulmonary disease, unspecified COPD ty pe J44.9 Active 11681830 Problem Seasonal allergies J30.2 Active 477008085 Problem Chronic GERD K21.9 Active 587188662 Problem Liver lesion K76.9 Active 629587808 Problem 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 M 10.072 Active 78576452 Problem Essential hypertension I10 Active 48641644 Problem Hyperlipidemia, unspecified hyperlipidemia type E7 8.5 Active 82078619 ALLERGIES Allergen (clinical drug ingredient) Drug/Non Drug Allergy do cumented on EMR Reaction Allergy Type Onset Date Status codeine Codeine Sulfate([facility] Code:[address]-51) Nausea/Vomiting Dr ug Allergy Active ENCOUNTERS from 1955 to 2020-03-04 Encounter Location Date Provider Diagnosis [facility][1][address] [address] [place] [address] Jan, Joshua Hernandes Otitis externa of both ears, unspecified chronicity, unspecified type H60.93 ; Pulmonary nodule R91.1 ; Vaccination refused by patient Z28.21 ; Contact dermatitis, unspecified contact dermatitis type, unspecified trigger L25.9 and Seasonal allergies J30.2 IMMUNIZATIONS Vaccine Route Administration Date Status Influenza [...] Education Language: Question Answer Notes Languages spoken: Kyrgyz Orthodoxy: Question Answer Notes Orthodoxy 03 Buddhism Sexual Hx: Question Answer Notes Had sex [...] REASON FOR REFERRAL No Information VITAL SIGNS Weight 250.8 lbs Jan, Height 73 in Jan, BMI 33.09 kg/m2 Jan, Heart Rate 70 /min Jan, Respiratory Rate 17 /min Jan, Temperature 97.8 degrees Fahrenheit Jan, Oximetry 97 Jan, Blood pressure systolic 146 mm Hg Jan, Blood pressure diastolic 95 mm Hg Jan, MEDICATIONS Medication SIG (Take, Route, Frequency, Duration) [...] Information RESULTS No Results REASON FOR VISIT F/U FROM DOWNTIME VISIT MEDICAL (GENERAL) HISTORY Type Description Date Medical [...] Information ASSESSMENTS Encounter Date Diagnosis Notes Jan, Contact dermatitis, unspecif ied contact dermatitis type, unspecified trigger (ICD-10 - L25.9) Jan, Seasonal allergies (ICD-10 - J30.2) Jan, Otitis externa of both ears, unspecified chronicity, unspecified type (ICD-10 - H60.93) Jan, Vaccination refused by patient (ICD-10 - Z28.21) Jan, Pulmonary nodule (ICD-10 - R91.1) PLAN OF TREATMENT Medication Medication Name Sig Start Date Stop Date Ciprofloxacin-Hydrocortisone 0.2-1 % 3 drops into affe cted ears Otic Twice a day for 7 day(s) Jan, Ofloxacin 0.3 % 10 drops into affected ear Otic Once a d ay for 7 day(s) Feb, Treatment Notes Assessment Notes Clinical Notes Otitis externa of both ears, unspecified chronicity, unspeci fied type Suspect otitis externa, recommend antibiotic ear drops. If not improve consider oral antibiotic and referral to ENT. Monitor for now. Avoid aminoglycosides due to unsure about tympanic membrane fully intact. Pulmonary nodule Continues to follow up with pulmonology. Vaccination refused by patient Refuse fl u shot, will get somewhere else. Contact dermatitis, unspecified contact dermatitis type, uns pecified trigger Notes that derm diangosed with contact dermatitis. Follow up as needed. Seasonal allergies Continue allergy med ications as prescribed. Use daily for now that symptoms worse. If not improve call office. Next Appt Details 4 mths, sooner if ears not improve Reaso n: Provider Name:Juliocesar Locke, 2020-03 03:30:00 PM, [address] [facility], [address], [place], [address], Provider Name:Joshua Hernandes, 2020-06-11 03:30:00 PM, [address] [place], [address], Insurance Providers Payer Name Payer Address Payer Phone Insured Name Patient Relati onship to Insured Coverage Start Date Coverage End Date MEDICARE Part A and B [address] [facility] [id number] [place] self
--- OUTSIDE RECORDS SUMMARY | 2020-05-11 17:36 | CCD ---
Author Author [facility] Organization [facility] Address Unknown Phone Unavailable Care Team Providers Care Skilled Nursing Professional Name Role Phone Joshua Hernandes Unavailable PROBLEMS Type Condition ICD9-CM Code [id number] Code Onset Dates Condition S tatus SNOMED Code Notes Problem Elevated cholesterol E78.0 Active 26624966 Problem Chronic pain G89.29 Active 07982358 Problem Essential (primary) hypertension I10 Active 29662020 Problem JERE (obstructive sleep apnea) G47.33 Active 78 334275 Problem Other chronic pain G89.29 Active 01006563 Problem Depression, unspecified depression type F32.9 Active 70631381 Problem Obstructive sleep apnea G47.33 Active 30735833 Problem Gastroesophageal reflux disease without esophagitis K21.9 Active 260405813 Problem Pulmonary nodule R91.1 Active 912869443 Problem Otitis externa of both ears, unspecified chronic ity, unspecified type H60.93 Active 1167092 Problem Chronic obstructive pulmonary disease, unspecified COPD ty pe J44.9 Active 28733142 Problem Seasonal allergies J30.2 Active 735794070 Problem Chronic GERD K21.9 Active 871454735 Problem Liver lesion K76.9 Active 976212519 Problem 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 M 10.072 Active 97648129 Problem Essential hypertension I10 Active 30473494 Problem Hyperlipidemia, unspecified hyperlipidemia type E7 8.5 Active 15656740 ALLERGIES Allergen (clinical drug ingredient) Drug/Non Drug Allergy do cumented on EMR Reaction Allergy Type Onset Date Status codeine Codeine Sulfate([facility] Code:[address]-78) Nausea/Vomiting Dr gann Allergy Active ENCOUNTERS from 1955 to 2020-04-27 Encounter Location Date Provider Diagnosis [address] [address] Apr, Joshua Hernandes IMMUNIZATIONS Vaccine Route Administration [...] Education Language: Question Answer Notes Languages spoken: Hungarian Restorationism: Question Answer Notes Restorationism 03 Druze Sexual Hx: Question Answer Notes Had sex [...] Information RESULTS No Results REASON FOR VISIT Chest congestion MEDICAL (GENERAL) HISTORY Type Description Date Medical [...] Details Provider Name:Joshua Hernandes, 2020-06-11 03:30:00 PM, [address] [place], [address], Insurance Providers Payer Name Payer Address Payer Phone Insured Name Patient Relati onship to Insured Coverage Start Date Coverage End Date MEDICARE Part A and B [facility] [address] [facility] [phone] [place]
--- OUTSIDE RECORDS SUMMARY | 2020-05-11 17:36 | CCD | Continuity of Care Document ---
Author Author Andrés AGUERO PA Organization Unknown Address [address] [place] [address] [place] [address] Phone [phone] Care Team Providers Care Manager Freelance Name Role Phone [facility] Publi AUTM [phone] Problems Description No Information Available Social History [...] Daily as Needed Unknown Azelastine HCL (Nasal) 137mcg/Nicollet Solution Use 1 Nicol[place](S) In Each Nostril Twice Daily Unknown Modafinil [...]
--- OUTSIDE RECORDS SUMMARY | 2020-05-11 17:37 | CCD ---
Author Author [facility] Organization [facility] Address Unknown Phone Unavailable Care Team Providers Care Ingot Stripper Name Role Phone Vivien Ponce MD Unavailable Unavailable Vivien Ponce MD Unavailable Unavailable Vivien Ponce MD Unavailable Unavailable Vivien Ponce MD Unavailable Unavailable Vivien Ponce MD Unavailable Unavailable Vivien Ponce MD Unavailable Unavailable Vivien Ponce MD Unavailable Unavailable Vivien Ponce MD Unavailable Unavailable Vivien Ponce MD Unavailable Unavailable Vivien Ponce MD Unavailable Unavailable Vivien Ponce MD Unavailable Unavailable Vivien Ponce MD Unavailable Unavailable Vivien Ponce MD Unavailable Unavailable Vivien Ponce MD Unavailable Unavailable Vivien Ponce MD Unavailable Unavailable Vivien Ponce MD Unavailable Unavailable Vivien Ponce MD Unavailable Unavailable Vivien Ponce MD Unavailable Unavailable Vivien Ponce MD Unavailable Unavailable Vivien Ponce MD Unavailable Unavailable Vivien Ponce MD Unavailable Unavailable Vivien Ponce MD Unavailable Unavailable Vivien Ponce MD Unavailable Unavailable Shoemaker, Emilie FRICKERTRON CHECKER Unavailable Unavailable Shoemaker, Emilie FRICKERTRON CHECKER Unavailable Unavailable Shoemaker, Emilie FRICKERTRON CHECKER Unavailable Unavailable Shoemaker, Emilie FRICKERTRON CHECKER Unavailable Unavailable Shoemaker, Emilie FRICKERTRON CHECKER Unavailable Unavailable Shoemaker, Emilie FRICKERTRON CHECKER Unavailable Unavailable Shoemaker, Emilie FRICKERTRON CHECKER Unavailable Unavailable Shoemaker, Emilie FRICKERTRON CHECKER Unavailable Unavailable Shoemaker, Emilie FRICKERTRON CHECKER Unavailable Unavailable Shoemaker, Emilie FRICKERTRON CHECKER Unavailable Unavailable Shoemaker, Emilie FRICKERTRON CHECKER Unavailable Unavailable Burnett, Nicolasa Cornelia PA Unavailable Unavailable Burnett, Nicolasa Cornelia PA Unavailable Unavailable Burnett, Nicolasa Cornelia PA Unavailable Unavailable Burnett, Nicolasa Cornelia PA Unavailable Unavailable Burnett, Nicolasa Cornelia PA Unavailable Unavailable Burnett, Nicolasa Cornelia PA Unavailable Unavailable Burnett, Nicolasa Cornelia PA Unavailable Unavailable Burnett, Nicolasa Cornelia PA Unavailable Unavailable Burnett, Nicolasa Cornelia PA Unavailable Unavailable Burnett, Nicolasa Cornelia PA Unavailable Unavailable Re-disclosure Warning The records that you are about to access may contain information from federally-assisted alcohol or drug abuse programs. If such information is present, then the following federally mandated warning applies: This information has been disclosed to you from records protected by federal confidentiality rules (42 CFR part 2). The federal rules prohibit you from making any further disclosure of this information unless further disclosure is expressly permitted by the written consent of the person to whom it pertains or as otherwise permitted by 42 CFR part 2. A general authorization for the release of medical or other information is NOT sufficient for this purpose. The Federal rules restrict any use of the information to criminally investigate or prosecute any alcohol or drug abuse patient.The records that you are about to access may contain highly sensitive health information, the redisclosure of which is protected by Article 27-F of the [facility] Public Health law. If you continue you may have access to information: Regarding HIV / AIDS; Provided by facilities licensed or operated by the [facility] Office of Mental Health; or Provided by the [facility] Office for People With Developmental Disabilities. If such information is present, then the following [facility] mandated warning applies: This information has been disclosed to you from confidential records which are protected by state law. State law prohibits you from making any further disclosure of this information without the specific written consent of the person to whom it pertains, or as otherwise permitted by law. Any unauthorized further disclosure in violation of state law may result in a fine or halfway sentence or both. A general authorization for the release of medical or other information is NOT sufficient authorization for further disc losure. Allergies and Adverse Reactions Type Description Substance Reaction Status Data Source(s ) codeine Codeine Sulfate Codeine Nausea/Vomiting Active eCW 1 ([facility]) Codeine Sulfate Codeine Sulfate Codeine Sulfate Nausea/Vomiting Acti ve eCW1 ([facility]) Family History Family Member Name Family Member Gender Family Member Status Date o f Status Description Data Source(s) Unknown Unknown Problem MEDENT ([facility], ) Encounters Encounter Providers Location Date Indications Data Source(s ) Unknown [address] [facility] [address] 05/05/2020 12:00:00 AM EST eCW1 ([facility]) Unknown [address] [facility] [address] 04/27/2020 12:00:00 AM EST eCW1 ([facility]) Unknown [address] [facility] [address] 04/27/2020 12:00:00 AM EST eCW1 ([facility]) Outpatient Attender: Cornelia brooks 04/18/2020 09:45:00 AM EST MEDENT ([facility]) Outpatient Attender: Emilie chan 03/28/2020 11:30:00 AM EST MEDENT ([facility]) Unknown [address] [facility] [address] 02/24/2020 12:00:00 AM EST eCW1 ([facility]) Unknown [address] [facility] [address] 02/24/2020 12:00:00 AM EST eCW1 ([facility]) Unknown [address] [facility] [address] 02/21/2020 12:00:00 AM EDT eCW1 ([facility]) Outpatient [address] [facility] [address] 02/20/2020 12:00:00 AM EDT eCW1 ([facility]) [place] [address] [facility] [place] [address] 02/12/2020 12:00:00 AM EDT eCW1 ([facility]) [place] [address] [facility] [place] [address] 01/21/2020 12:00:00 AM EDT eCW1 ([facility]) Unknown [address] [facility] [address] 11/13/2019 12:00:00 AM EDT eCW1 ([facility]) [facility] [address] [facility] [address] 08/29/2019 12:00:00 AM EDT eCW1 ([facility]) [facility] [address] [facility] [place] [address] 08/28/2019 12:00:00 AM EDT eCW1 ([facility]) Outpatient 07/24/2019 09:28:00 AM EDT [facility] [address] [facility] [address] 07/19/2019 12:00:00 AM EDT eCW1 ([facility]) [facility] [address] [place] [address] 06/10/2019 12:00:00 AM EST eCW1 ([facility]) Outpatient Attender: Vivien Lewis/Charity/Chris/Hernandez ndrobert 05/10/2019 10:00:00 AM EST MEDENT ([facility] [address] [facility] [place] [address] 05/01/2019 12:00:00 AM EST eCW1 ([facility]) [facility] [address] [facility] [place] [address] 03/28/2019 12:00:00 AM EST eCW1 ([facility]) Medications Medication Brand Name Start Date Product Form Dose Route Admi nistrative Instructions Pharmacy Instructions Status Indications Reaction Description Data Source(s) Prednisone 20 MG Oral Tablet Prednisone 03/28/2020 12:00:00 AM EST [facility]) Ofloxacin 3 MG/ML Ophthalmic Solution Ofloxacin 0.3 % Ofloxa aashish 0.3 % 02/24/2020 12:00:00 AM EST 10.0 {drops_into_affected_ear} a ctive Ofloxacin 0.3 % eCW1 ([facility]) Ofloxacin 3 MG/ML Ophthalmic Solution Ofloxacin 0.3 % Ofloxa aashish 0.3 % 02/24/2020 12:00:00 AM EST 10.0 {drops_into_affected_ear} a ctive Ofloxacin 0.3 % eCW1 ([facility]) Ofloxacin 3 MG/ML Ophthalmic Solution Ofloxacin 0.3 % Ofloxa aashish 0.3 % 02/24/2020 12:00:00 AM EST 10.0 {drops_into_affected_ear} a ctive Ofloxacin 0.3 % eCW1 ([facility]) Ofloxacin 3 MG/ML Ophthalmic Solution Ofloxacin 0.3 % Ofloxa aashish 0.3 % 02/24/2020 12:00:00 AM EST 10.0 {drops_into_affected_ear} a ctive Ofloxacin 0.3 % eCW1 ([facility]) Ofloxacin 3 MG/ML Ophthalmic Solution Ofloxacin 0.3 % Ofloxa aashish 0.3 % 02/24/2020 12:00:00 AM EST 10.0 {drops_into_affected_ear} a ctive Ofloxacin 0.3 % eCW1 ([facility]) Ofloxacin 3 MG/ML Ophthalmic Solution Ofloxacin 0.3 % Ofloxa aashish 0.3 % 02/24/2020 12:00:00 AM EST 10.0 {drops_into_affected_ear} a ctive Ofloxacin 0.3 % eCW1 ([facility]) Ofloxacin 3 MG/ML Ophthalmic Solution Ofloxacin 0.3 % Ofloxa aashish 0.3 % 02/24/2020 12:00:00 AM EST 10.0 {drops_into_affected_ear} a ctive Ofloxacin 0.3 % eCW1 ([facility]) Ciprofloxacin-Hydrocortisone 0.2-1 % UNK 02/20/2020 12:00:00 AM EDT active Ciprofloxacin-Hydrocortisone 0.2 -1 % eCW1 ([facility]) Ciprofloxacin-Hydrocortisone 0.2-1 % UNK 02/20/2020 12:00:00 AM EDT active Ciprofloxacin-Hydrocortisone 0.2 -1 % eCW1 ([facility]) Ciprofloxacin-Hydrocortisone 0.2-1 % UNK 02/20/2020 12:00:00 AM EDT active Ciprofloxacin-Hydrocortisone 0.2 -1 % eCW1 ([facility]) Ciprofloxacin-Hydrocortisone 0.2-1 % UNK 02/20/2020 12:00:00 AM EDT active Ciprofloxacin-Hydrocortisone 0.2 -1 % eCW1 ([facility]) Ciprofloxacin-Hydrocortisone 0.2-1 % UNK 02/20/2020 12:00:00 AM EDT active Ciprofloxacin-Hydrocortisone 0.2 -1 % eCW1 ([facility]) Ciprofloxacin-Hydrocortisone 0.2-1 % UNK 02/20/2020 12:00:00 AM EDT active Ciprofloxacin-Hydrocortisone 0.2 -1 % eCW1 ([facility]) Ciprofloxacin-Hydrocortisone 0.2-1 % UNK 02/20/2020 12:00:00 AM EDT active Ciprofloxacin-Hydrocortisone 0.2 -1 % eCW1 ([facility]) Triamcinolone Acetonide 1 MG/ML Topical Cream Triamcin olone Acetonide 0.1 % Triamcinolone Acetonide 0.1 % 01/21/2020 12:00:00 AM EDT 1.0 {appli cation} active Triamcinolone Acetonide 0 .1 % eCW1 ([facility]) Triamcinolone Acetonide 1 MG/ML Topical Cream Triamcin olone Acetonide 0.1 % Triamcinolone Acetonide 0.1 % 01/21/2020 12:00:00 AM EDT 1.0 {appli cation} active Triamcinolone Acetonide 0 .1 % eCW1 ([facility]) Triamcinolone Acetonide 1 MG/ML Topical Cream Triamcin olone Acetonide 0.1 % Triamcinolone Acetonide 0.1 % 01/21/2020 12:00:00 AM EDT 1.0 {appli cation} active Triamcinolone Acetonide 0 .1 % eCW1 ([facility]) Triamcinolone Acetonide 1 MG/ML Topical Cream Triamcin olone Acetonide 0.1 % Triamcinolone Acetonide 0.1 % 01/21/2020 12:00:00 AM EDT 1.0 {appli cation} active Triamcinolone Acetonide 0 .1 % eCW1 ([facility]) Triamcinolone Acetonide 1 MG/ML Topical Cream Triamcin olone Acetonide 0.1 % Triamcinolone Acetonide 0.1 % 01/21/2020 12:00:00 AM EDT 1.0 {appli cation} active Triamcinolone Acetonide 0 .1 % eCW1 ([facility]) Triamcinolone Acetonide 1 MG/ML Topical Cream Triamcin olone Acetonide 0.1 % Triamcinolone Acetonide 0.1 % 01/21/2020 12:00:00 AM EDT 1.0 {appli cation} active Triamcinolone Acetonide 0 .1 % eCW1 ([facility]) Triamcinolone Acetonide 1 MG/ML Topical Cream Triamcin olone Acetonide 0.1 % Triamcinolone Acetonide 0.1 % 01/21/2020 12:00:00 AM EDT 1.0 {appli cation} active Triamcinolone Acetonide 0 .1 % eCW1 ([facility]) Triamcinolone Acetonide 1 MG/ML Topical Cream Triamcin olone Acetonide 0.1 % Triamcinolone Acetonide 0.1 % 01/21/2020 12:00:00 AM EDT 1.0 {appli cation} active Triamcinolone Acetonide 0 .1 % eCW1 ([facility]) Triamcinolone Acetonide 1 MG/ML Topical Cream Triamcin olone Acetonide 0.1 % Triamcinolone Acetonide 0.1 % 01/21/2020 12:00:00 AM EDT 1.0 {appli cation} active Triamcinolone Acetonide 0 .1 % eCW1 ([facility]) CPAP 07/11/2019 12:00:00 AM EDT active MEDENT ([facility], ) 60 ACTUAT formoterol fumarate 0.005 MG/A CTUAT / mometasone furoate 0.1 MG/ACTUAT Metered Dose Inhaler [Dulera] Dulera 06/04/2019 12:00:00 AM EST RESPIRATORY active MEDENT ([facility], ) 60 ACTUAT Budesonide 0.16 MG/ACTUAT / fo rmoterol fumarate 0.0045 MG/ACTUAT Metered Dose Inhaler [Symbicort] Symbicort 05/10/2019 12:00:00 AM EST RESPIRATORY completed MEDENT ( [facility], ) 60 ACTUAT Albuterol 0.09 MG/ACTUAT Metered Dose Inhaler Albu terol Sulfate HFA 05/10/2019 12:00:00 AM EST RESPIRATORY active MEDENT ([facility], ) 24 HR Nifedipine 30 MG Extended Release Oral Tablet NI FEdipine ER 30 MG NIFEdipine ER 30 MG 03/28/2019 12:00:00 AM EST active 1 tablet on an empty stomach eCW1 ([facility]) 24 HR Nifedipine 30 MG Extended Release Oral Tablet NI FEdipine ER 30 MG NIFEdipine ER 30 MG 03/28/2019 12:00:00 AM EST active 1 tablet on an empty stomach eCW1 ([facility]) 24 HR Nifedipine 30 MG Extended Release Oral Tablet NI FEdipine ER 30 MG NIFEdipine ER 30 MG 03/28/2019 12:00:00 AM EST active 1 tablet on an empty stomach eCW1 ([facility]) 24 HR Nifedipine 30 MG Extended Release Oral Tablet NI FEdipine ER 30 MG NIFEdipine ER 30 MG 03/28/2019 12:00:00 AM EST 1.0 {tablet_on_an_empty_stomach} active NIF Edipine ER 30 MG eCW1 ([facility]) 24 HR Nifedipine 30 MG Extended Release Oral Tablet NI FEdipine ER 30 MG NIFEdipine ER 30 MG 03/28/2019 12:00:00 AM EST 1.0 {tablet_on_an_empty_stomach} active NIF Edipine ER 30 MG eCW1 ([facility]) 24 HR Nifedipine 30 MG Extended Release Oral Tablet NI FEdipine ER 30 MG NIFEdipine ER 30 MG 03/28/2019 12:00:00 AM EST 1.0 {tablet_on_an_empty_stomach} active NIF Edipine ER 30 MG eCW1 ([facility]) 24 HR Nifedipine 30 MG Extended Release Oral Tablet NI FEdipine ER 30 MG NIFEdipine ER 30 MG 03/28/2019 12:00:00 AM EST 1.0 {tablet_on_an_empty_stomach} active NIF Edipine ER 30 MG eCW1 ([facility]) 24 HR Nifedipine 30 MG Extended Release Oral Tablet NI FEdipine ER 30 MG NIFEdipine ER 30 MG 03/28/2019 12:00:00 AM EST 1.0 {tablet_on_an_empty_stomach} active NIF Edipine ER 30 MG eCW1 ([facility]) 24 HR Nifedipine 30 MG Extended Release Oral Tablet NI FEdipine ER 30 MG NIFEdipine ER 30 MG 03/28/2019 12:00:00 AM EST 1.0 {tablet_on_an_empty_stomach} active NIF Edipine ER 30 MG eCW1 ([facility]) 24 HR Nifedipine 30 MG Extended Release Oral Tablet NI FEdipine ER 30 MG NIFEdipine ER 30 MG 03/28/2019 12:00:00 AM EST 1.0 {tablet_on_an_empty_stomach} active NIF Edipine ER 30 MG eCW1 ([facility]) 24 HR Nifedipine 30 MG Extended Release Oral Tablet NI FEdipine ER 30 MG NIFEdipine ER 30 MG 03/28/2019 12:00:00 AM EST 1.0 {tablet_on_an_empty_stomach} active NIF Edipine ER 30 MG eCW1 ([facility]) 24 HR Nifedipine 30 MG Extended Release Oral Tablet NI FEdipine ER 30 MG NIFEdipine ER 30 MG 03/28/2019 12:00:00 AM EST 1.0 {tablet_on_an_empty_stomach} active NIF Edipine ER 30 MG eCW1 ([facility]) 60 ACTUAT formoterol fumarate 0.005 MG/A CTUAT / mometasone furoate 0.1 MG/ACTUAT Metered Dose Inhaler [Dulera] Dulera 02/06/2019 12:00:00 AM EDT RESPIRATORY completed MEDENT ([facility], ) Insurance Providers Payer name Policy type / Coverage type Policy ID Covered alliance party ID Covered alliance party's relationship to velasco Policy [place] Plan Information MEDICARE [id number] SP [id number] MEDICARE C [id number] S [id number] NOVITAS JL PART B C [id number] S [id number] ANSI-Not a Secondary Insurance [id number] ANSI-Medicare Part B [id number] ANSI-Not a Secondary Insurance [id number] MEDICARE [id number] SP [id number] ANSI-Not a Secondary Insurance [id number] ANSI-Medicare Part B [id number] ANSI-Not a Secondary Insurance [id number] ANSI-Not a Secondary Insurance [id number] ANSI-Not a Secondary Insurance [id number] ANSI-Medicare Part B [id number] MEDICARE [id number] SP [id number] ANSI-Not a Secondary Insurance [id number] ANSI-Not a Secondary Insurance [id number] SELF PAY ONLY SP ANSI-Not a Secondary Insurance [id number] ANSI-Not a Secondary Insurance [id number] ANSI-Not a Secondary Insurance [id number] ANSI-Not a Secondary Insurance [id number] SELF PAY ONLY - [id number] SP ANSI-Not a Secondary Insurance [id number] ANSI-Not a Secondary Insurance [id number] [facility] [id number] SP [id number] [facility] Part B [id number] Self [id number] Cancer Services Commercial [id number] Self [id number] [facility] [id number] SP [id number] [facility] [id number] SP [id number] [facility] [id number] SELF PAY UNAVAILABLE SP UNAVAILA BLE CANCER SERVICES PROGRAM [id number] SP [id number] Problems, Conditions, and Diagnoses Code Display Name Description Problem Type Effective Dates Data Source(s) J30.2 [id number] Seasonal allergies Problem 02/27/2020 12:00: 00 AM EST eCW1 ([facility]) H60.93 [id number] Otitis externa of marzena th ears, unspecified chronicity, unspecified type Problem 02/20/2020 12:00:00 AM EDT eCW1 ([facility]) E78.5 [id number] Hyperlipidemia, unspecified hyperlipidemi a type Problem 08/29/2019 12:00:00 AM EDT eCW1 ([facility]) E78.5 [id number] Hyperlipidemia, unspecified hyperlipidemi a type Problem 08/29/2019 12:00:00 AM EDT eCW1 ([facility]) I10 [id number] Essential hypertension Problem 03/28/2019 12 :00:00 AM EST eCW1 ([facility]) Surgeries/Procedures Procedure Description Date Indications Data Source(s) Office Visit, Est Pt., Level 2 FC 05/01/2019 12:00:00 AM EST eCW1 ([facility]) Office Visit, Est Pt., Level 3 PC 05/01/2019 12:00:00 AM EST eCW1 ([facility]) Office Visit, Est Pt., Level 4 PC 03/28/2019 12:00:00 AM EST eCW1 ([facility]) Results ID Date Data Source [id number] 04/18/2020 12:00:00 AM EST [facility] Name Value Range Interpretation Code Description Data Saba rce(s) Supporting Document(s) SARS-CoV2 Rapid Antigen [facility] This lab was reported by Jose R Busch re. Procedure Social History Code Duration Value Status Description Data Source(s ) Smoking 04/27/2020 12:00:00 AM EST Former Smoker completed Former Smoker eCW1 ([facility]) Smoking 04/27/2020 12:00:00 AM EST Former Smoker completed Former Smoker eCW1 ([facility]) Smoking 04/27/2020 12:00:00 AM EST Former Smoker completed Former Smoker eCW1 ([facility]) Smoking 02/20/2020 12:00:00 AM EDT Former Smoker completed Former Smoker eCW1 ([facility]) Smoking 02/20/2020 12:00:00 AM EDT Former Smoker completed Former Smoker eCW1 ([facility]) Smoking 02/20/2020 12:00:00 AM EDT Former Smoker completed Former Smoker eCW1 ([facility]) Smoking 02/20/2020 12:00:00 AM EDT Former Smoker completed Former Smoker eCW1 ([facility]) Smoking 08/29/2019 12:00:00 AM EDT Former Smoker completed Former Smoker eCW1 ([facility]) Smoking 08/29/2019 12:00:00 AM EDT Former Smoker completed Former Smoker eCW1 ([facility]) Smoking 08/29/2019 12:00:00 AM EDT Former Smoker completed Former Smoker eCW1 ([facility]) Vital Signs ID Date Data Source UNK Name Value Range Interpretation Code Description Data Source(s) Body weight 210.00 [lb_av] 210.00 [lb_av] MEDEN T ([facility]) Body temperature 97.1 [degF] 97.1 [degF] [facility] Oxygen saturation in Arterial blood by Pulse oximetry 98 % 98 % [facility] ([facility]) Respiratory rate 16 /min 16 /min [facility] ( [facility]) Heart rate 83 /min 83 /min [facility] ([facility]) Diastolic blood pressure 102 mm[Hg] 102 mm[Hg] [facility] Systolic blood pressure 154 mm[Hg] 154 mm[Hg] [facility] Body mass index (BMI) [Ratio] 31.2 kg/m2 31.2 k g/m2 MEDENT ([facility] [place]) Body height 75 [in_i] 75 [in_i] MEDENT ([facility]) 6'3" Body weight 250.00 [lb_av] 250.00 [lb_av] MEDEN T ([facility]) Body temperature 98.1 [degF] 98.1 [degF] MEDENT ([facility]) Oxygen saturation in Arterial blood by Pulse oximetry 95 % 95 % MEDENT ([facility]) Respiratory rate 20 /min 20 /min MEDENT ( [facility]) Heart rate 70 /min 70 /min MEDENT ([facility] [place]) Diastolic blood pressure 92 mm[Hg] 92 mm[Hg] MEDENT ([facility]) Systolic blood pressure 142 mm[Hg] 142 mm[Hg] M EDENT ([facility]) Diastolic blood pressure 95 mm[Hg] 95 mm[Hg] eCW1 ([facility]) Systolic blood pressure 146 mm[Hg] 146 mm[Hg] e CW1 ([facility]) Body temperature 97.8 [degF] 97.8 [degF] eCW1 ( [facility]) Respiratory rate 17 /min 17 /min eCW1 ([facility]) Heart rate 70 /min 70 /min eCW1 ([facility]) Body mass index (BMI) [Ratio] 33.09 kg/m2 33.09 kg/m2 eCW1 ([facility]) Body height 73 [in_i] 73 [in_i] eCW1 ([facility]) Body weight 250.8 [lb_av] 250.8 [lb_av] eCW1 ([facility]) Diastolic blood pressure 78 mm[Hg] 78 mm[Hg] eCW1 ([facility]) Systolic blood pressure 143 mm[Hg] 143 mm[Hg] e CW1 ([facility]) Body temperature 98.0 [degF] 98.0 [degF] eCW1 ( [facility]) Respiratory rate 16 /min 16 /min eCW1 ([facility]) Heart rate 78 /min 78 /min eCW1 ([facility], later [facility]) Body mass index (BMI) [Ratio] 32.85 kg/m2 32.85 kg/m2 eCW1 ([facility]) Body height 73 [in_us] 73 [in_us] eCW1 ([facility]) Body weight Measured 249 [lb_av] 249 [lb_av] eC W1 ([facility]) Body weight 114.761 kg 114.761 kg MEDENT ([facility], ) Body mass index (BMI) [Ratio] 32.5 kg/m2 32.5 k g/m2 [facility] ([facility]) Body weight 253.00 [lb_av] 253.00 [lb_av] MEDEN T ([facility], ) Body height 74 [in_i] 74 [in_i] [facility] 6'2" Body temperature 97.6 [degF] 97.6 [degF] [facility] ([facility]) Oxygen saturation in Arterial blood by Pulse oximetry 96 % 96 % [facility] ([facility]) Heart rate 79 /min 79 /min [facility] ([facility]) Diastolic blood pressure 88 mm[Hg] 88 mm[Hg] [facility] ([facility]) Systolic blood pressure 144 mm[Hg] 144 mm[Hg] M EDENT ([facility]) Body weight 111.586 kg 111.586 kg [facility] ([facility]) Body mass index (BMI) [Ratio] 31.6 kg/m2 31.6 k g/m2 [facility] ([facility]) Body weight 246.00 [lb_av] 246.00 [lb_av] MEDEN T ([facility]) Body height 74 [in_i] 74 [in_i] [facility] ([facility]) 6'2" Oxygen saturation in Arterial blood by Pulse oximetry 96 % 96 % [facility] ([facility]) Heart rate 72 /min 72 /min MEDENT ([facility], ) Diastolic blood pressure 88 mm[Hg] 88 mm[Hg] MEDENT ([facility], ) Systolic blood pressure 150 mm[Hg] 150 mm[Hg] M EDENT ([facility], ) Diastolic blood pressure 85 mm[Hg] 85 mm[Hg] eCW1 ([facility]) Systolic blood pressure 144 mm[Hg] 144 mm[Hg] e CW1 ([facility]) Body temperature 95.8 [degF] 95.8 [degF] eCW1 ( [facility]) Respiratory rate 17 /min 17 /min eCW1 ([facility]) Heart rate 87 /min 87 /min eCW1 ([facility], [facility]) Body mass index (BMI) [Ratio] 33.03 kg/m2 33.03 kg/m2 W1 ([facility]) Body height 73 [in_us] 73 [in_us] eCW1 ([facility]) Body weight Measured 250.4 [lb_av] 250.4 [lb_av ] eCW1 ([facility]) Diastolic blood pressure 91 mm[Hg] 91 mm[Hg] eCW1 ([facility]) Systolic blood pressure 153 mm[Hg] 153 mm[Hg] e CW1 ([facility]) Body temperature 95.3 [degF] 95.3 [degF] eCW1 ( [facility]) Respiratory rate 17 /min 17 /min eCW1 ([facility]) Heart rate 95 /min 95 /min eCW1 ([facility], [facility]) Body mass index (BMI) [Ratio] 32.85 kg/m2 32.85 kg/m2 W1 ([facility]) Body height 73 [in_us] 73 [in_us] eCW1 ([facility]) Body weight Measured 249 [lb_av] 249 [lb_av] eC W1 ([facility]) Patient Treatment Plan of Care Planned Activity Planned Date Details Description Data Source (s) Ofloxacin 3 MG/ML Ophthalmic Solution 02/24/2020 12:00:00 AM EST eCW1 ([facility]) Ofloxacin 3 MG/ML Ophthalmic Solution 02/24/2020 12:00:00 AM EST eCW1 ([facility]) Ofloxacin 3 MG/ML Ophthalmic Solution 02/24/2020 12:00:00 AM EST eCW1 ([facility]) Ofloxacin 3 MG/ML Ophthalmic Solution 02/24/2020 12:00:00 AM EST eCW1 ([facility]) Ciprofloxacin-Hydrocortisone 0.2-1 % 02/20/2020 12:00:00 AM EDT eCW1 ([facility]) Ciprofloxacin-Hydrocortisone 0.2-1 % 02/20/2020 12:00:00 AM EDT eCW1 ([facility]) Ciprofloxacin-Hydrocortisone 0.2-1 % 02/20/2020 12:00:00 AM EDT eCW1 ([facility]) Ciprofloxacin-Hydrocortisone 0.2-1 % 02/20/2020 12:00:00 AM EDT eCW1 ([facility]) Triamcinolone Acetonide 1 MG/ML Topical Cream 01/21/2020 12:00:00 A M EDT eCW1 ([facility]) Triamcinolone Acetonide 1 MG/ML Topical Cream 01/21/2020 12:00:00 A M EDT eCW1 ([facility]) 24 HR Nifedipine 30 MG Extended Release Oral Tablet 03/28/20 19 12:00:00 AM EST eCW1 ([facility]) 24 HR Nifedipine 30 MG Extended Release Oral Tablet 03/28/20 19 12:00:00 AM EST eCW1 ([facility]) 24 HR Nifedipine 30 MG Extended Release Oral Tablet 03/28/20 19 12:00:00 AM EST eCW1 ([facility]) 24 HR Nifedipine 30 MG Extended Release Oral Tablet 03/28/20 19 12:00:00 AM EST eCW1 ([facility]) 24 HR Nifedipine 30 MG Extended Release Oral Tablet 03/28/20 19 12:00:00 AM EST eCW1 ([facility]) 24 HR Nifedipine 30 MG Extended Release Oral Tablet 03/28/20 12:00:00 AM EST eCW1 ([facility])
--- OUTSIDE RECORDS SUMMARY | 2020-05-11 19:31 | CCD ---
Author Author [facility] Organization [facility] Address Unknown Phone Unavailable Care Team Providers Care Day [employer] Driver Name Role Phone Vivien Ponce MD Unavailable [...] Vivien Ponce MD Unavailable Unavailable Shoemaker, Emilie AVIATION ELECTRONIC [employer]ARF[employer] OPERATOR Unavailable Unavailable Shoemaker, Emilie AVIATION ELECTRONIC [employer]ARFARE OPERATOR Unavailable Unavailable Shoemaker, Emilie AVIATION ELECTRONIC [employer]ARFARE OPERATOR Unavailable Unavailable Shoemaker, Emilie AVIATION ELECTRONIC WARFARE OPERATOR Unavailable Unavailable Shoemaker, Emilie AVIATION ELECTRONIC [employer]ARFARE OPERATOR Unavailable Unavailable Shoemaker, Emilie AVIATION ELECTRONIC WARFARE OPERATOR Unavailable Unavailable Shoemaker, Emilie AVIATION ELECTRONIC WARFARE OPERATOR Unavailable Unavailable Shoemaker, Emilie AVIATION ELECTRONIC WARFARE OPERATOR Unavailable Unavailable Shoemaker, Emilie AVIATION ELECTRONIC WARFARE OPERATOR Unavailable Unavailable Shoemaker, Emilie AVIATION ELECTRONIC WARFARE OPERATOR Unavailable Unavailable Shoemaker, Emilie AVIATION ELECTRONIC WARFARE OPERATOR Unavailable Unavailable Burnett, Nicolasa Cornelia PA Unavailable [...] is protected by Article 27-F of the [facility] Public Health law. If you continue you may have access to information: Regarding HIV / AIDS; Provided by facilities licensed or operated by the [facility] Office of Mental Health; or Provided by the [facility] Office for People With Developmental Disabilities. If such information is present, then the following [facility] mandated warning applies: This information has [...] law may result in a fine or alf sentence or both. A general authorization for the release of medical or other information is NOT sufficient authorization for further disc losure. Allergies and Adverse Reactions Type Description Substance Reaction Status Data Source(s ) codeine Codeine Sulfate Codeine Nausea/Vomiting Active eCW 1 ([facility]) Codeine Sulfate Codeine Sulfate Codeine Sulfate Nausea/Vomiting Acti ve eCW1 ([facility]) Family History Family Member Name Family Member Gender Family Member Status Date o f Status Description Data Source(s) Unknown Unknown Problem MEDENT ([facility], ) Encounters Encounter Providers Location Date Indications Data Source(s ) Unknown [address] [facility] [id number] 05/05/2020 12:00:00 AM EST eCW1 ([facility]) Unknown [address] [facility] [id number] 04/27/2020 12:00:00 AM EST eCW1 ([facility]) Unknown [address] [facility] [id number] 04/27/2020 12:00:00 AM EST eCW1 ([facility]) Outpatient Attender: Cornelia brooks 04/18/2020 09:45:00 AM EST MEDENT ([facility] Outpatient Attender: Emilie chan 03/28/2020 11:30:00 AM EST MEDENT ([facility]) Unknown [address] [facility] [id number] 02/24/2020 12:00:00 AM EST eCW1 ([facility]) Unknown [address] [facility] [id number] 02/24/2020 12:00:00 AM EST eCW1 ([facility]) Unknown [address] [facility] [id number] 02/21/2020 12:00:00 AM EDT eCW1 ([facility]) Outpatient [address] [facility] [id number] 02/20/2020 12:00:00 AM EDT eCW1 ([facility]) [place] [address] [facility] [place] [address] 02/12/2020 12:00:00 AM EDT eCW1 ([facility]) Unknown [address] [facility] [place] [address] 01/21/2020 12:00:00 AM EDT eCW1 ([facility]) Unknown [address] [facility] [id number] 11/13/2019 12:00:00 AM EDT eCW1 ([facility]) [facility] [address] [facility] [id number] 08/29/2019 12:00:00 AM EDT eCW1 ([facility]) [facility] [address] [facility] [place] [address] 08/28/2019 12:00:00 AM EDT eCW1 ([facility]) Outpatient 07/24/2019 09:28:00 AM EDT [facility] [address] [facility] [address] 07/19/2019 12:00:00 AM EDT eCW1 ([facility]) [facility] [address] [place] [id number] 06/10/2019 12:00:00 AM EST eCW1 ([facility]) Outpatient Attender: Vivien Lewis/Charity/Chris/Hernandez ndrobert 05/10/2019 10:00:00 AM EST MEDENT ([facility] [address] [facility] [place] [address] 05/01/2019 12:00:00 AM EST eCW1 ([facility]) [facility] [address] [facility] [place] [address] 03/28/2019 12:00:00 AM EST eCW1 ([facility]) Medications Medication Brand Name Start Date Product Form Dose Route Admi nistrative Instructions Pharmacy Instructions Status Indications Reaction Description Data Source(s) Prednisone 20 MG Oral Tablet Prednisone 03/28/2020 12:00:00 AM EST [facility]) Ofloxacin 3 MG/ML Ophthalmic Solution Ofloxacin 0.3 % Ofloxa aashish 0.3 % 02/24/2020 12:00:00 AM EST 10.0 {drops_into_affected_ear} a ctive Ofloxacin 0.3 % eCW1 ([facility]) Ofloxacin 3 MG/ML Ophthalmic Solution Ofloxacin 0.3 % Ofloxa aashish 0.3 % 02/24/2020 12:00:00 AM EST 10.0 {drops_into_affected_ear} a ctive Ofloxacin 0.3 % eCW1 ([facility]) Ofloxacin 3 MG/ML Ophthalmic Solution Ofloxacin 0.3 % Ofloxa aashish 0.3 % 02/24/2020 12:00:00 AM EST 10.0 {drops_into_affected_ear} a ctive Ofloxacin 0.3 % eCW1 ([facility]) Ofloxacin 3 MG/ML Ophthalmic Solution Ofloxacin 0.3 % Ofloxa aashish 0.3 % 02/24/2020 12:00:00 AM EST 10.0 {drops_into_affected_ear} a ctive Ofloxacin 0.3 % eCW1 ([facility]) Ofloxacin 3 MG/ML Ophthalmic Solution Ofloxacin 0.3 % Ofloxa aashish 0.3 % 02/24/2020 12:00:00 AM EST 10.0 {drops_into_affected_ear} a ctive Ofloxacin 0.3 % eCW1 ([facility]) Ofloxacin 3 MG/ML Ophthalmic Solution Ofloxacin 0.3 % Ofloxa aashish 0.3 % 02/24/2020 12:00:00 AM EST 10.0 {drops_into_affected_ear} a ctive Ofloxacin 0.3 % eCW1 ([facility]) Ofloxacin 3 MG/ML Ophthalmic Solution Ofloxacin 0.3 % Ofloxa aashish 0.3 % 02/24/2020 12:00:00 AM EST 10.0 {drops_into_affected_ear} a ctive Ofloxacin 0.3 % eCW1 ([facility]) Ciprofloxacin-Hydrocortisone 0.2-1 % UNK 02/20/2020 12:00:00 AM EDT active Ciprofloxacin-Hydrocortisone 0.2 -1 % eCW1 ([facility]) Ciprofloxacin-Hydrocortisone 0.2-1 % UNK 02/20/2020 12:00:00 AM EDT active Ciprofloxacin-Hydrocortisone 0.2 -1 % eCW1 ([facility]) Ciprofloxacin-Hydrocortisone 0.2-1 % UNK 02/20/2020 12:00:00 AM EDT active Ciprofloxacin-Hydrocortisone 0.2 -1 % eCW1 ([facility]) Ciprofloxacin-Hydrocortisone 0.2-1 % UNK 02/20/2020 12:00:00 AM EDT active Ciprofloxacin-Hydrocortisone 0.2 -1 % eCW1 ([facility]) Ciprofloxacin-Hydrocortisone 0.2-1 % UNK 02/20/2020 12:00:00 AM EDT active Ciprofloxacin-Hydrocortisone 0.2 -1 % eCW1 ([facility]) Ciprofloxacin-Hydrocortisone 0.2-1 % UNK 02/20/2020 12:00:00 AM EDT active Ciprofloxacin-Hydrocortisone 0.2 -1 % eCW1 ([facility]) Ciprofloxacin-Hydrocortisone 0.2-1 % UNK 02/20/2020 12:00:00 AM EDT active Ciprofloxacin-Hydrocortisone 0.2 -1 % eCW1 ([facility]) Triamcinolone Acetonide 1 MG/ML Topical Cream Triamcin olone Acetonide 0.1 % Triamcinolone Acetonide 0.1 % 01/21/2020 12:00:00 AM EDT 1.0 {appli cation} active Triamcinolone Acetonide 0 .1 % eCW1 ([facility]) Triamcinolone Acetonide 1 MG/ML Topical Cream Triamcin olone Acetonide 0.1 % Triamcinolone Acetonide 0.1 % 01/21/2020 12:00:00 AM EDT 1.0 {appli cation} active Triamcinolone Acetonide 0 .1 % eCW1 ([facility]) Triamcinolone Acetonide 1 MG/ML Topical Cream Triamcin olone Acetonide 0.1 % Triamcinolone Acetonide 0.1 % 01/21/2020 12:00:00 AM EDT 1.0 {appli cation} active Triamcinolone Acetonide 0 .1 % eCW1 ([facility]) Triamcinolone Acetonide 1 MG/ML Topical Cream Triamcin olone Acetonide 0.1 % Triamcinolone Acetonide 0.1 % 01/21/2020 12:00:00 AM EDT 1.0 {appli cation} active Triamcinolone Acetonide 0 .1 % eCW1 ([facility]) Triamcinolone Acetonide 1 MG/ML Topical Cream Triamcin olone Acetonide 0.1 % Triamcinolone Acetonide 0.1 % 01/21/2020 12:00:00 AM EDT 1.0 {appli cation} active Triamcinolone Acetonide 0 .1 % eCW1 ([facility]) Triamcinolone Acetonide 1 MG/ML Topical Cream Triamcin olone Acetonide 0.1 % Triamcinolone Acetonide 0.1 % 01/21/2020 12:00:00 AM EDT 1.0 {appli cation} active Triamcinolone Acetonide 0 .1 % eCW1 ([facility]) Triamcinolone Acetonide 1 MG/ML Topical Cream Triamcin olone Acetonide 0.1 % Triamcinolone Acetonide 0.1 % 01/21/2020 12:00:00 AM EDT 1.0 {appli cation} active Triamcinolone Acetonide 0 .1 % eCW1 ([facility]) Triamcinolone Acetonide 1 MG/ML Topical Cream Triamcin olone Acetonide 0.1 % Triamcinolone Acetonide 0.1 % 01/21/2020 12:00:00 AM EDT 1.0 {appli cation} active Triamcinolone Acetonide 0 .1 % eCW1 ([facility]) Triamcinolone Acetonide 1 MG/ML Topical Cream Triamcin olone Acetonide 0.1 % Triamcinolone Acetonide 0.1 % 01/21/2020 12:00:00 AM EDT 1.0 {appli cation} active Triamcinolone Acetonide 0 .1 % eCW1 ([facility]) CPAP 07/11/2019 12:00:00 AM EDT active MEDENT ([facility], ) 60 ACTUAT formoterol fumarate 0.005 MG/A CTUAT / mometasone furoate 0.1 MG/ACTUAT Metered Dose Inhaler [Dulera] Dulera 06/04/2019 12:00:00 AM EST RESPIRATORY active MEDENT ([facility], ) 60 ACTUAT Budesonide 0.16 MG/ACTUAT / fo rmoterol fumarate 0.0045 MG/ACTUAT Metered Dose Inhaler [Symbicort] Symbicort 05/10/2019 12:00:00 AM EST RESPIRATORY completed MEDENT ( [facility], ) 60 ACTUAT Albuterol 0.09 MG/ACTUAT Metered Dose Inhaler Albu terol Sulfate HFA 05/10/2019 12:00:00 AM EST RESPIRATORY active MEDENT ([facility], ) 24 HR Nifedipine 30 MG Extended Release Oral Tablet NI FEdipine ER 30 MG NIFEdipine ER 30 MG 03/28/2019 12:00:00 AM EST active 1 tablet on an empty stomach eCW1 ([facility]) 24 HR Nifedipine 30 MG Extended Release Oral Tablet NI FEdipine ER 30 MG NIFEdipine ER 30 MG 03/28/2019 12:00:00 AM EST active 1 tablet on an empty stomach eCW1 ([facility]) 24 HR Nifedipine 30 MG Extended Release Oral Tablet NI FEdipine ER 30 MG NIFEdipine ER 30 MG 03/28/2019 12:00:00 AM EST active 1 tablet on an empty stomach eCW1 ([facility]) 24 HR Nifedipine 30 MG Extended Release Oral Tablet NI FEdipine ER 30 MG NIFEdipine ER 30 MG 03/28/2019 12:00:00 AM EST 1.0 {tablet_on_an_empty_stomach} active NIF Edipine ER 30 MG eCW1 ([facility]) 24 HR Nifedipine 30 MG Extended Release Oral Tablet NI FEdipine ER 30 MG NIFEdipine ER 30 MG 03/28/2019 12:00:00 AM EST 1.0 {tablet_on_an_empty_stomach} active NIF Edipine ER 30 MG eCW1 ([facility]) 24 HR Nifedipine 30 MG Extended Release Oral Tablet NI FEdipine ER 30 MG NIFEdipine ER 30 MG 03/28/2019 12:00:00 AM EST 1.0 {tablet_on_an_empty_stomach} active NIF Edipine ER 30 MG eCW1 ([facility]) 24 HR Nifedipine 30 MG Extended Release Oral Tablet NI FEdipine ER 30 MG NIFEdipine ER 30 MG 03/28/2019 12:00:00 AM EST 1.0 {tablet_on_an_empty_stomach} active NIF Edipine ER 30 MG eCW1 ([facility]) 24 HR Nifedipine 30 MG Extended Release Oral Tablet NI FEdipine ER 30 MG NIFEdipine ER 30 MG 03/28/2019 12:00:00 AM EST 1.0 {tablet_on_an_empty_stomach} active NIF Edipine ER 30 MG eCW1 ([facility]) 24 HR Nifedipine 30 MG Extended Release Oral Tablet NI FEdipine ER 30 MG NIFEdipine ER 30 MG 03/28/2019 12:00:00 AM EST 1.0 {tablet_on_an_empty_stomach} active NIF Edipine ER 30 MG eCW1 ([facility]) 24 HR Nifedipine 30 MG Extended Release Oral Tablet NI FEdipine ER 30 MG NIFEdipine ER 30 MG 03/28/2019 12:00:00 AM EST 1.0 {tablet_on_an_empty_stomach} active NIF Edipine ER 30 MG eCW1 ([facility]) 24 HR Nifedipine 30 MG Extended Release Oral Tablet NI FEdipine ER 30 MG NIFEdipine ER 30 MG 03/28/2019 12:00:00 AM EST 1.0 {tablet_on_an_empty_stomach} active NIF Edipine ER 30 MG eCW1 ([facility]) 24 HR Nifedipine 30 MG Extended Release Oral Tablet NI FEdipine ER 30 MG NIFEdipine ER 30 MG 03/28/2019 12:00:00 AM EST 1.0 {tablet_on_an_empty_stomach} active NIF Edipine ER 30 MG eCW1 ([facility]) 60 ACTUAT formoterol fumarate 0.005 MG/A CTUAT / mometasone furoate 0.1 MG/ACTUAT Metered Dose Inhaler [Dulera] Dulera 02/06/2019 12:00:00 AM EDT RESPIRATORY completed MEDENT ([facility], ) Insurance Providers Payer name Policy type / Coverage type Policy ID Covered libertarian ID Covered libertarian's relationship to velasco Policy [place] Plan Information MEDICARE [id number] SP [id number] MEDICARE C [id number] S [id number] NOVITAS JL PART B C [id number] S [id number] ANSI-Not a Secondary Insurance [id number] ANSI-Medicare Part B [id number] ANSI-Not a Secondary Insurance [id number] MEDICARE [id number] SP [id number] A ANSI-Not a Secondary Insurance [id number] ANSI-Medicare Part B [id number] ANSI-Not a Secondary Insurance [id number] ANSI-Not a Secondary Insurance [id number] ANSI-Not a Secondary Insurance [id number] ANSI-Medicare Part B [id number] MEDICARE [id number] SP [id number] ANSI-Not a Secondary Insurance [id number] ANSI-Not a Secondary Insurance [id number] SELF PAY ONLY SP ANSI-Not a Secondary Insurance [id number] ANSI-Not a Secondary Insurance [id number] ANSI-Not a Secondary Insurance [id number] ANSI-Not a Secondary Insurance [id number] SELF PAY ONLY - [id number] SP ANSI-Not a Secondary Insurance [id number] ANSI-Not a Secondary Insurance [id number] [facility] [place] [id number] SP [id number] [facility] Part B [id number] Self [id number] Cancer Services Commercial [id number] Self [id number] [facility] [id number] SP [id number] [facility] [id number] SP [id number] [facility] [id number] SELF PAY UNAVAILABLE SP UNAVAILA BLE CANCER [facility] [place] [id number] [place] [id number] Problems, Conditions, and Diagnoses Code Display Name Description Problem Type Effective Dates Data Source(s) J30.2 [id number] Seasonal allergies Problem 02/27/2020 12:00: 00 AM EST eCW1 ([facility]) H60.93 [id number] Otitis externa of marzena th ears, unspecified chronicity, unspecified type Problem 02/20/2020 12:00:00 AM EDT eCW1 ([facility]) E78.5 [id number] Hyperlipidemia, unspecified hyperlipidemi a type Problem 08/29/2019 12:00:00 AM EDT eCW1 ([facility]) E78.5 [id number] Hyperlipidemia, unspecified hyperlipidemi a type Problem 08/29/2019 12:00:00 AM EDT eCW1 ([facility]) I10 [id number] Essential hypertension Problem 03/28/2019 12 :00:00 AM EST eCW1 ([facility]) Surgeries/Procedures Procedure Description Date Indications Data Source(s) Office Visit, Est Pt., Level 2 FC 05/01/2019 12:00:00 AM EST eCW1 ([facility]) Office Visit, Est Pt., Level 3 PC 05/01/2019 12:00:00 AM EST eCW1 ([facility]) Office Visit, Est Pt., Level 4 PC 03/28/2019 12:00:00 AM EST eCW1 ([facility]) Results ID Date Data Source [id number] 04/18/2020 12:00:00 AM EST [facility] Name Value Range Interpretation Code Description Data Saba rce(s) Supporting Document(s) SARS-CoV2 Rapid Antigen [facility] This lab was reported by Jose R Busch re. Procedure Social History Code Duration Value Status Description Data Source(s ) Smoking 04/27/2020 12:00:00 AM EST Former Smoker completed Former Smoker eCW1 ([facility]) Smoking 04/27/2020 12:00:00 AM EST Former Smoker completed Former Smoker eCW1 ([facility]) Smoking 04/27/2020 12:00:00 AM EST Former Smoker completed Former Smoker eCW1 ([facility]) Smoking 02/20/2020 12:00:00 AM EDT Former Smoker completed Former Smoker eCW1 ([facility]) Smoking 02/20/2020 12:00:00 AM EDT Former Smoker completed Former Smoker eCW1 ([facility]) Smoking 02/20/2020 12:00:00 AM EDT Former Smoker completed Former Smoker eCW1 ([facility]) Smoking 02/20/2020 12:00:00 AM EDT Former Smoker completed Former Smoker eCW1 ([facility]) Smoking 08/29/2019 12:00:00 AM EDT Former Smoker completed Former Smoker eCW1 ([facility]) Smoking 08/29/2019 12:00:00 AM EDT Former Smoker completed Former Smoker eCW1 ([facility]) Smoking 08/29/2019 12:00:00 AM EDT Former Smoker completed Former Smoker eCW1 ([facility]) Vital Signs ID Date Data Source UNK Name Value Range Interpretation Code Description Data Source(s) Body weight 210.00 [lb_av] 210.00 [lb_av] MEDEN T ([facility]) Body temperature 97.1 [degF] 97.1 [degF] [facility] Oxygen saturation in Arterial blood by Pulse oximetry 98 % 98 % [facility] ([facility] Respiratory rate 16 /min 16 /min [facility] ( [facility]) Heart rate 83 /min 83 /min [facility] ([facility]) Diastolic blood pressure 102 mm[Hg] 102 mm[Hg] [facility] Systolic blood pressure 154 mm[Hg] 154 mm[Hg] [facility] Body mass index (BMI) [Ratio] 31.2 kg/m2 31.2 k g/m2 MEDENT ([facility]) Body height 75 [in_i] 75 [in_i] MEDENT ([facility], [facility]) 6'3" Body weight 250.00 [lb_av] 250.00 [lb_av] MEDEN T ([facility], [facility]) Body temperature 98.1 [degF] 98.1 [degF] MEDENT ([facility], [facility]) Oxygen saturation in Arterial blood by Pulse oximetry 95 % 95 % MEDENT ([facility], [facility]) Respiratory rate 20 /min 20 /min MEDENT ( [facility], [facility]) Heart rate 70 /min 70 /min MEDENT ([facility]) Diastolic blood pressure 92 mm[Hg] 92 mm[Hg] MEDENT ([facility], [facility]) Systolic blood pressure 142 mm[Hg] 142 mm[Hg] M EDENT ([facility], [facility]) Diastolic blood pressure 95 mm[Hg] 95 mm[Hg] eCW1 ([facility]) Systolic blood pressure 146 mm[Hg] 146 mm[Hg] e CW1 ([facility]) Body temperature 97.8 [degF] 97.8 [degF] eCW1 ( [facility]) Respiratory rate 17 /min 17 /min eCW1 ([facility]) Heart rate 70 /min 70 /min eCW1 ([facility]) Body mass index (BMI) [Ratio] 33.09 kg/m2 33.09 kg/m2 eCW1 ([facility]) Body height 73 [in_i] 73 [in_i] eCW1 ([facility]) Body weight 250.8 [lb_av] 250.8 [lb_av] eCW1 ([facility]) Diastolic blood pressure 78 mm[Hg] 78 mm[Hg] eCW1 ([facility]) Systolic blood pressure 143 mm[Hg] 143 mm[Hg] e CW1 ([facility]) Body temperature 98.0 [degF] 98.0 [degF] eCW1 ( [facility]) Respiratory rate 16 /min 16 /min eCW1 ([facility]) Heart rate 78 /min 78 /min eCW1 ([facility]) Body mass index (BMI) [Ratio] 32.85 kg/m2 32.85 kg/m2 eCW1 ([facility]) Body height 73 [in_us] 73 [in_us] eCW1 ([facility]) Body weight Measured 249 [lb_av] 249 [lb_av] eC W1 ([facility]) Body weight 114.761 kg 114.761 kg MEDENT ([facility], ) Body mass index (BMI) [Ratio] 32.5 kg/m2 32.5 k g/m2 [facility] ([facility]) Body weight 253.00 [lb_av] 253.00 [lb_av] MEDEN T ([facility], ) Body height 74 [in_i] 74 [in_i] [facility] 6'2" Body temperature 97.6 [degF] 97.6 [degF] [facility] ([facility]) Oxygen saturation in Arterial blood by Pulse oximetry 96 % 96 % [facility] ([facility]) Heart rate 79 /min 79 /min [facility] ([facility]) Diastolic blood pressure 88 mm[Hg] 88 mm[Hg] [facility] ([facility]) Systolic blood pressure 144 mm[Hg] 144 mm[Hg] M EDENT ([facility]) Body weight 111.586 kg 111.586 kg [facility] ([facility]) Body mass index (BMI) [Ratio] 31.6 kg/m2 31.6 k g/m2 [facility] ([facility]) Body weight 246.00 [lb_av] 246.00 [lb_av] MEDEN T ([facility]) Body height 74 [in_i] 74 [in_i] [facility] ([facility]) 6'2" Oxygen saturation in Arterial blood by Pulse oximetry 96 % 96 % [facility] ([facility]) Heart rate 72 /min 72 /min MEDENT ([facility], ) Diastolic blood pressure 88 mm[Hg] 88 mm[Hg] MEDENT ([facility], ) Systolic blood pressure 150 mm[Hg] 150 mm[Hg] M EDENT ([facility], ) Diastolic blood pressure 85 mm[Hg] 85 mm[Hg] eCW1 ([facility]) Systolic blood pressure 144 mm[Hg] 144 mm[Hg] e CW1 ([facility]) Body temperature 95.8 [degF] 95.8 [degF] eCW1 ( [facility]) Respiratory rate 17 /min 17 /min eCW1 ([facility]) Heart rate 87 /min 87 /min eCW1 ([facility]) Body mass index (BMI) [Ratio] 33.03 kg/m2 33.03 kg/m2 W1 ([facility]) Body height 73 [in_us] 73 [in_us] eCW1 ([facility]) Body weight Measured 250.4 [lb_av] 250.4 [lb_av ] eCW1 ([facility]) Diastolic blood pressure 91 mm[Hg] 91 mm[Hg] eCW1 ([facility]) Systolic blood pressure 153 mm[Hg] 153 mm[Hg] e CW1 ([facility]) Body temperature 95.3 [degF] 95.3 [degF] eCW1 ( [facility]) Respiratory rate 17 /min 17 /min eCW1 ([facility]) Heart rate 95 /min 95 /min eCW1 ([facility]) Body mass index (BMI) [Ratio] 32.85 kg/m2 32.85 kg/m2 W1 ([facility]) Body height 73 [in_us] 73 [in_us] eCW1 ([facility]) Body weight Measured 249 [lb_av] 249 [lb_av] eC W1 ([facility]) Patient Treatment Plan of Care Planned Activity Planned Date Details Description Data Source (s) Ofloxacin 3 MG/ML Ophthalmic Solution 02/24/2020 12:00:00 AM EST eCW1 ([facility]) Ofloxacin 3 MG/ML Ophthalmic Solution 02/24/2020 12:00:00 AM EST eCW1 ([facility]) Ofloxacin 3 MG/ML Ophthalmic Solution 02/24/2020 12:00:00 AM EST eCW1 ([facility]) Ofloxacin 3 MG/ML Ophthalmic Solution 02/24/2020 12:00:00 AM EST eCW1 ([facility]) Ciprofloxacin-Hydrocortisone 0.2-1 % 02/20/2020 12:00:00 AM EDT eCW1 ([facility]) Ciprofloxacin-Hydrocortisone 0.2-1 % 02/20/2020 12:00:00 AM EDT eCW1 ([facility]) Ciprofloxacin-Hydrocortisone 0.2-1 % 02/20/2020 12:00:00 AM EDT eCW1 ([facility]) Ciprofloxacin-Hydrocortisone 0.2-1 % 02/20/2020 12:00:00 AM EDT eCW1 ([facility]) Triamcinolone Acetonide 1 MG/ML Topical Cream 01/21/2020 12:00:00 A M EDT eCW1 ([facility]) Triamcinolone Acetonide 1 MG/ML Topical Cream 01/21/2020 12:00:00 A M EDT eCW1 ([facility]) 24 HR Nifedipine 30 MG Extended Release Oral Tablet 03/28/20 19 12:00:00 AM EST eCW1 ([facility]) 24 HR Nifedipine 30 MG Extended Release Oral Tablet 03/28/20 19 12:00:00 AM EST eCW1 ([facility]) 24 HR Nifedipine 30 MG Extended Release Oral Tablet 03/28/20 19 12:00:00 AM EST eCW1 ([facility]) 24 HR Nifedipine 30 MG Extended Release Oral Tablet 03/28/20 19 12:00:00 AM EST eCW1 ([facility]) 24 HR Nifedipine 30 MG Extended Release Oral Tablet 03/28/20 19 12:00:00 AM EST eCW1 ([facility]) 24 HR Nifedipine 30 MG Extended Release Oral Tablet 03/28/20 12:00:00 AM EST eCW1 ([facility])
[2020-05-11 20:20] LABS: BASO % 0.3 % (0.0-1.0); EOS # 0.1 10^3/uL (0.0-0.5); HEMATOCRIT 40.6 % (42.0-52.0); HEMOGLOBIN 12.9 g/dl (13.5-17.5); LYMPH # 1.1 10^3/uL (1.5-5.0); LYMPH % 15.5 % (24.0-44.0); MEAN CORPUSCULAR HEMOGLOBIN 29.9 pg (27.0-33.0); MEAN CORPUSCULAR HGB CONC 31.8 g/dl (32.0-36.5); MEAN CORPUSCULAR VOLUME 94.2 fl (80.0-96.0); MONO # 0.7 10^3/uL (0.0-0.8); NEUTROPHILS # 5.3 10^3/uL (1.5-8.5); NEUTROPHILS % 72.6 % (36.0-66.0); PLATELET COUNT, AUTOMATED 215 10^3/uL (150-450); RED BLOOD COUNT 4.31 10^6/uL (4.30-6.10); WHITE BLOOD COUNT 7.2 10^3/uL (4.0-10.0)
--- NOTE | 2020-05-11 20:40 | REPVR ---
PROCEDURE INFORMATION: Exam: XR Chest, 2 Views Exam date and time: 05/11/2020 8:02 PM Age: 64 years old Clinical indication: Shortness of breath; Additional info: Dyspnea/cough TECHNIQUE: Imaging protocol: XR of the chest Views: 2 views. COMPARISON: CT Chest without contrast 01/29/2020 8:35 AM FINDINGS: Lungs: There is an airspace opacity in the left lower lobe. There is a calcified granuloma in the right middle lobe that is unchanged compared to the prior CT chest on 01/29/2020. Pleural space: Unremarkable. No pleural effusion or pneumothorax is identified. Heart/Mediastinum: Unremarkable. No cardiomegaly. Bones/joints: There are chronic mild anterior wedge compression deformities of T2, T6, and T7 and a chronic moderate anterior wedge compression deformity of L1, which are stable compared to the prior CT chest on 01/29/2020. There are chronic healed right rib fracture deformities. There are endplate spurs in the thoracic spine. IMPRESSION: Airspace opacity in the left lower lobe, which may represent atelectasis or pneumonia. Electronically signed by: Jasper Hernadez On 05/11/2020 20:40:08 PM
[2020-05-11 20:48] LABS: ALT/SGPT 83 U/L (12-78); BILIRUBIN,DIRECT 0.2 MG/DL (0.0-0.2); BILIRUBIN,TOTAL 0.4 MG/DL (0.2-1.0); BLOOD UREA NITROGEN 29 MG/DL (7-18); C REACTIVE PROTEIN QUANTITATIV 0.62 MG/DL (0.00-0.30); CALCIUM LEVEL 9.4 MG/DL (8.8-10.2); CARBON DIOXIDE LEVEL 27 MEQ/L (21-32); CHLORIDE LEVEL 103 MEQ/L (98-107); CK-MB VALUE MASS 1.4 NG/ML (<3.6); CPK CREATINE PHOSPHOKINASE 70 U/L (39-308); CREATININE FOR GFR 1.41 MG/DL (0.70-1.30); GLOMERULAR FILTRATION RATE 53.5 (>49); GLUCOSE, FASTING 95 MG/DL (70-100); LIPASE 148 U/L (73-393); POTASSIUM SERUM 4.7 MEQ/L (3.5-5.1); SODIUM LEVEL 135 MEQ/L (136-145); TOTAL PROTEIN 7.3 GM/DL (6.4-8.2); TROPONIN I < 0.02 NG/ML (< 0.10)
[2020-05-11] MEDS ORDERED: ISOVUE-370 76% 100ML VIAL As Ordered ONE (22:01)
[2020-05-11] MEDS ORDERED: KETOROLAC 30 MG/ML 1ML VIAL IV ONE (22:15)
--- NOTE | 2020-05-11 23:21 | REPVR ---
PROCEDURE INFORMATION: Exam: CT Angiography Chest With Contrast Exam date and time: 05/11/2020 10:23 PM Age: 64 years old Clinical indication: Left sided chest pain and significant shortness of breath. TECHNIQUE: Imaging protocol: Computed tomographic angiography of the chest with intravenous contrast. 3D rendering (Not supervised by radiologist): MIP and/or 3D reconstructed images were created by the technologist. Radiation optimization: All CT scans at this facility use at least one of these dose optimization techniques: automated exposure control; mA and/or kV adjustment per patient size (includes targeted exams where dose is matched to clinical indication); or iterative reconstruction. Contrast material: ISOVUE 370; Contrast volume: 75 ml; Contrast route: INTRAVENOUS (IV); COMPARISON: 1. CT ANGIO CHEST 01/15/2019 1:[address] Chest without contrast 04/30/2019 3:29:[address] ANGIO CHEST 01/15/2019 1:13:44 AM FINDINGS: Pulmonary arteries: No pulmonary embolism. Aorta: The thoracic aorta is intact and patent. There is no thoracic aortic aneurysm, pseudoaneurysm, penetrating atherosclerotic ulcer, intramural hematoma, or dissection. Great vessels off aortic arch: The brachiocephalic artery, imaged proximal portions of the common carotid arteries, imaged proximal portions of the vertebral arteries, and subclavian arteries are intact. No stenosis or occlusion of these vessels is noted. Lungs: There is atelectasis in the left lower lobe that corresponds to the airspace opacity noted in the chest x-ray on 05/11/2020. There is also atelectasis in the right lower lobe. No lung consolidation or spiculated mass is noted. There is a 5 mm solid pulmonary nodule in the right middle lobe (image 81 of the axial series 401), calcified granulomas in the right middle lobe measuring up to 14 mm, a 4 mm juxtapleural nodule along the left major fissure projecting into the superior segment of the left lower lobe (image 78 of the axial series 401), a 4 mm juxtapleural nodule also projecting into the superior segment of the left lower lobe (image 84 of the axial series 401), a 4 mm juxtapleural nodule projecting into the posterior segment of the right upper lobe (image 67 of the axial series 401), and a 5 mm solid pulmonary nodule in the left lower lobe, which are stable compared to the prior CT chest on 04/30/2019 and CTA chest on 01/15/2019 and for which further follow-up is not necessary. Pleural space: Unremarkable. No pneumothorax. No pleural effusion. Heart: No cardiomegaly. No pericardial effusion. The ratio of the diameter of the right ventricle to the diameter of the left ventricle measures less than 1, which is within normal limits and there is no evidence for a right ventricular strain. Incidental note is made of increased fat in the right and left cardiophrenic angle fat pads. Lymph nodes: No enlarged lymph nodes. Gallbladder and bile ducts: The gallbladder is distended. No calcified gallstones are seen. No gallbladder wall thickening, pericholecystic fluid, or pericholecystic inflammatory changes are identified. No dilation of the bile ducts is noted. No calcified stones are seen in the common bile duct. Adrenals: Normal. No adrenal mass is noted. Limited bowel: There is interposition of the hepatic flexure of the colon anterior to the liver and just below the right hemidiaphragm (Chilaiditi sign). Bones/joints: There are multiple chronic healed right rib fracture deformities. No acute fracture or dislocation is noted. There are chronic mild anterior wedge compression fractures of T2, T6, and T7 and a chronic moderate anterior wedge compression fracture of L1, which are stable compared to the prior CTA chest on 01/15/2019. No acute fracture or dislocation is noted. There are degenerative changes in the thoracic spine. No suspicious osteolytic or osteoblastic lesion is noted. Soft tissues: There is mild bilateral gynecomastia. IMPRESSION: 1. No acute findings in the chest. No pulmonary embolism. 2. Atelectasis in the left lower lobe that corresponds to the airspace opacity noted in the chest x-ray on 05/11/2020. No CT findings to suggest pneumonia. 3. Multiple solid and juxtapleural nodules measuring up to 5 mm, which are stable compared to the prior CT chest on 04/30/2019 and CTA chest on 01/15/2019 and for which further follow-up is not necessary. Electronically signed by: Jasper Hernadez On 05/11/2020 23:20:19 PM
[2020-05-11 23:42] VITALS: BP 140/98
--- NOTE | 2020-05-12 08:08 | ECGEPIP ---
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
--- NOTE | 2020-05-12 11:48 | ED PDOC ---
Post-Departure Follow-Up zahira gauthier and oneil faxed formal report of cxr for fu haileyg Harish Olea MD May 12, 2020 11:48
--- NOTE | 2020-05-12 11:54 | ED PDOC ---
Post-Departure Follow-Up cta chest faxed to dr riggs. Harish Loving MD May 12, 2020 11:54
== END 2020-05-11 23:45 | disposition home or self-care (01) ==
LOC: M ED 17:28
DX: R06.02 Shortness of breath (principal); R07.9 Chest pain, unspecified; Z86.16 Personal history of COVID-19; J44.9 Chronic obstructive pulmonary disease, unspecified; G47.33 Obstructive sleep apnea (adult) (pediatric); Z79.1 Long term (current) use of non-steroidal anti-inflammatories (NSAID); Z79.899 Other long term (current) drug therapy; Z87.891 Personal history of nicotine dependence; Z88.6 Allergy status to analgesic agent; Z88.8 Allergy status to other drugs, medicaments and biological substances
CPT/HCPCS: 71046; 71275; 80048; 80076; 82550; 82553; 83690; 84484; 85025; 85379; 85652; 86140; 93005; 96374; 99284; J1885; Q9967

== ENCOUNTER 2021-03-11 16:53 | Emergency (ER) | payer MEDICARE ==
[~2021-03-11] VITALS: Ht 182.9 cm; Wt 111.1 kg
[2021-03-11] MEDS ORDERED: NIFE30TA50 (17:11)
[2021-03-11] MEDS ORDERED: LISI40TA4 (17:11)
[2021-03-11] MEDS ORDERED: ALAVTAB (17:11)
[2021-03-11] MEDS ORDERED: ALBU8.5H (17:11)
[2021-03-11] MEDS ORDERED: MODA100T13 (17:11)
[2021-03-11] MEDS ORDERED: CHLO125TA (17:11)
--- NOTE | 2021-03-11 22:16 | REPVR ---
PROCEDURE INFORMATION: Exam: CT Head Without Contrast Exam date and time: 03/11/2021 9:38 PM Age: 65 years old Clinical indication: Pain; Dizziness; Headache not specified; Additional info: Headache, dizzy TECHNIQUE: Imaging protocol: Computed tomography of the head without contrast. Radiation optimization: All CT scans at this facility use at least one of these dose optimization techniques: automated exposure control; mA and/or kV adjustment per patient size (includes targeted exams where dose is matched to clinical indication); or iterative reconstruction. COMPARISON: CR SPINE CERVICAL AP/LAT 01/14/2019 8:35 AM FINDINGS: Brain: No intracranial hemorrhage or extra-axial fluid collection. No evidence of mass effect or midline shift. Gamble-white matter differentiation is intact. Cerebral ventricles: No ventriculomegaly. Paranasal sinuses: Visualized sinuses are unremarkable. No fluid levels. Mastoid air cells: Unremarkable. Bones/joints: No acute osseus lesion or fracture. Soft tissues: Unremarkable. IMPRESSION: No acute intracranial pathology. Electronically signed by: Mj Varghese On 03/11/2021 22:15:52 PM
--- NOTE | 2021-03-11 22:16 | REPVR ---
PROCEDURE INFORMATION: Exam: XR Chest Exam date and time: 03/11/2021 9:30 PM Age: 65 years old Clinical indication: Other: Chest pain TECHNIQUE: Imaging protocol: XR of the chest. Views: 2 views. COMPARISON: CR Chest, 2 view PA, Lat 05/11/2020 7:54 PM FINDINGS: Lungs: No focal areas of consolidation. Pleural spaces: Unremarkable. No pleural effusion. No pneumothorax. Heart/Mediastinum: Cardiac and mediastinal silhouettes are unremarkable. Bones/joints: No acute osseus lesion or fracture. IMPRESSION: No acute cardiopulmonary findings. Electronically signed by: Mj Varghese On 03/11/2021 22:16:27 PM
[2021-03-11 22:25] LABS: BASO % 0.3 % (0.0-1.0); EOS # 0.1 10^3/uL (0.0-0.5); EOS % 1.8 % (0.0-3.0); HEMATOCRIT 39.5 % (42.0-52.0); HEMOGLOBIN 13.4 g/dl (13.5-17.5); LYMPH # 1.1 10^3/uL (1.5-5.0); LYMPH % 15.9 % (24.0-44.0); MEAN CORPUSCULAR HEMOGLOBIN 31.5 pg (27.0-33.0); MEAN CORPUSCULAR HGB CONC 33.9 g/dl (32.0-36.5); MEAN CORPUSCULAR VOLUME 92.9 fl (80.0-96.0); MONO # 0.6 10^3/uL (0.0-0.8); NEUTROPHILS # 4.9 10^3/uL (1.5-8.5); NEUTROPHILS % 72.6 % (36.0-66.0); PLATELET COUNT, AUTOMATED 239 10^3/uL (150-450); RED BLOOD COUNT 4.25 10^6/uL (4.30-6.10); WHITE BLOOD COUNT 6.8 10^3/uL (4.0-10.0)
[2021-03-11 22:53] LABS: CK-MB VALUE MASS < 1.0 NG/ML (<3.6); CPK CREATINE PHOSPHOKINASE 85 U/L (39-308); MB/CK RELATIVE INDEX 1.18 (< OR =4); TROPONIN I < 0.02 NG/ML (< 0.10)
[2021-03-11 22:57] LABS: ALBUMIN 3.9 GM/DL (3.2-5.2); ALT/SGPT 67 U/L (12-78); BILIRUBIN,DIRECT 0.2 MG/DL (0.0-0.2); BILIRUBIN,TOTAL 0.5 MG/DL (0.2-1.0); BLOOD UREA NITROGEN 22 MG/DL (7-18); CARBON DIOXIDE LEVEL 28 MEQ/L (21-32); CHLORIDE LEVEL 104 MEQ/L (98-107); CREATININE FOR GFR 1.06 MG/DL (0.70-1.30); GLOMERULAR FILTRATION RATE > 60.0 (>49); GLUCOSE, FASTING 100 MG/DL (70-100); LIPASE 95 U/L (73-393); NT-PRO BNP 69 PG/ML (<125); POTASSIUM SERUM 3.7 MEQ/L (3.5-5.1); SODIUM LEVEL 139 MEQ/L (136-145)
[2021-03-12 00:01] LABS: CK-MB VALUE MASS < 1.0 NG/ML (<3.6); CPK CREATINE PHOSPHOKINASE 76 U/L (39-308); MB/CK RELATIVE INDEX 1.32 (< OR =4); TROPONIN I < 0.02 NG/ML (< 0.10)
--- OUTSIDE RECORDS SUMMARY | 2021-03-12 00:20 | CCD ---
Author Author [facility] Organization [facility] Address Unknown Phone Unavailable Care Team Providers Care Gas Charger Name Role Phone Joshua Hernandes Unavailable PROBLEMS Type Condition ICD9-CM Code LWH88-ER Code Onset Dates Condition S tatus W/U Status Risk SNOMED Code Notes Problem Chronic pain G89.29 Active confirmed 4346690 1 Problem JERE (obstructive sleep apnea) G47.33 Active confirm ed 03779581 Problem Elevated cholesterol E78.0 Active confirmed 90795468 Problem Depression, unspecified depression type F32.9 Active confirmed 98865160 Problem Essential (primary) hypertension I10 Active conf irmed 14460452 Problem Chronic GERD K21.9 Active confirmed 7429638 09 Problem Other chronic pain G89.29 Active confirmed 8 7425342 Problem Gastroesophageal reflux disease without esophagitis K21.9 Active confirmed 303648224 Problem Pulmonary nodule R91.1 Active confirmed 309 754854 Problem Liver lesion K76.9 Active confirmed 9939985 00 Problem Seasonal allergies J30.2 Active confirmed 4 71495793 Problem Obstructive sleep apnea G47.33 Active confirmed 69282054 Problem Anxiety F41.9 Active confirmed 99155399 Problem Chronic obstructive pulmonary disease, unspecified COPD ty pe J44.9 Active confirmed 89517992 Problem 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 M 10.072 Active confirmed 76865446 Problem Essential hypertension I10 Active confirmed 23347284 Problem Hyperlipidemia, unspecified hyperlipidemia type E7 8.5 Active confirmed 45331239 Problem Otitis externa of both ears, unspecified chronic ity, unspecified type H60.93 Active confirmed 0066421 ALLERGIES Allergen (clinical drug ingredient) Drug/Non Drug Allergy do cumented on EMR Reaction Allergy Type Onset Date Status codeine Codeine Sulfate([facility] Code:[address]-81) Nausea/Vomiting Dr gann Allergy Active ENCOUNTERS from 1955 to 2021-01-22 Encounter Location Date Provider [facility] [address] [facility] [phone] [place] [address] 30 Dec, 2020 Joshua Hernandes Hyperlipidemia, unspecified hyperlipidemia type E78.5 and Essential (primary) hypertension I10 IMMUNIZATIONS Vaccine Route Administration Date Status Influenza 18 yrs & older Flublok IM Intramuscular Jan 29, 2019 Administered Influenza 6mo & up Fluzone IM Intramuscular Apr 11, 2017 Admi nistered SOCIAL HISTORY Tobacco Use: Social History Observation Description Date Details (start date - stop date) Former Smoker Sex Assigned At : Social History Observation Description Sex Assigned At Unknown Education: Question Answer Notes Level of Education: High School Audit Question Answer Notes Total Score: 5 Interpretation: Alcohol Education Language: Question Answer Notes Languages spoken: Samoan Religious: Question Answer Notes Religious 03 Druze Sexual Hx: Question Answer Notes [...] Notes Start Da te End Date Status Carvedilol 6.25 MG 1 tablet with food Orally in am and pm for 90 days Active Ibuprofen 600 MG 1 tablet Orally qd prn for 90 days PRN Active Lisinopril 40 MG 1 tablet Orally Once a day for 90 day(s) Active Modafinil 100 MG 1 tablet in the morning Orally Once a day 100 qd Active Lovastatin 20 MG 1 tablet with a meal Orally Once a day for 90 days Active Chlorthalidone 25 MG 1 tablet in the morning with food Orally Once a day for 90 days Active Alavert Allergy/Sinus 5-120 MG 1 tablet as needed Oral ly every 12 hrs for 90 day(s) Active Ventolin HFA 108 (90 Base) MCG/ACT 2 puffs as needed I nhalation every 4 hrsprn mdd16 for 30 day(s) Not-Taking Omeprazole 20 MG 1 capsule Orally Daily for 90 days Active Albuterol Sulfate (2.5 MG/3ML) 0.083% 3 ml as needed Inhalation hubert ry 6 hrs Active Tylenol 500mg 2-4 daily Active NIFEdipine ER 30 MG 1 tablet on an empty stomach Orally Once a day for 90 days Active Fluticasone Propionate HFA Active Fluoxetine HCl 60 MG Take 1 tablet by mouth once daily for 30 days fo r 30 Active PROCEDURES No Information RESULTS No Results REASON FOR VISIT refills MEDICAL (GENERAL) HISTORY Type Description Date Medical History HTN Medical History high cholesterol Medical History depression Medical History JERE on CPAP Medical History Chronic congestion Medical History Liver lesion Medical History COVID 19 Medical History COPD Surgical History Lower back surgery 2005 Surgical History hernia repair [address] Marino 12/2017 Hospitalization History SOB [facility] Goals Section No Information Health Concerns No Information MEDICAL EQUIPMENT No Information MENTAL STATUS No Information FUNCTIONAL STATUS No Information ASSESSMENTS Encounter Date Diagnosis Assessment Notes Treatment Notes Treatm ent Clinical Notes Dec, Hyperlipidemia, unspecified hyperlipidemia type (ICD-10 - E78.5) Dec, Essential (primary) hypertension (ICD-10 - I10) PLAN OF TREATMENT Medication Medication Name Sig Start Date Stop Date Lovastatin 20 MG 1 tablet with a meal Orally Once a day for 90 d ays NIFEdipine ER 30 MG 1 tablet on an empty stomach Orally Once a day for 90 days Ibuprofen 600 MG 1 tablet Orally qd prn for 90 days Lisinopril 40 MG 1 tablet Orally Once a day for 90 day(s) Chlorthalidone 25 MG 1 tablet in the morning with food Orally Once a day for 90 days Carvedilol 6.25 MG 1 tablet with food Orally in am and pm for 90 days Fluoxetine HCl 60 MG Take 1 tablet by mouth once daily for 30 da ys for 30 Next Appt Details Provider Name:Joshua Hernandes, 2021-04-06 04:00:00 PM, [id number] [facility], , [place], [address], Insurance Providers Payer Name Payer Address Payer Phone Insured Name Patient Relati onship to Insured Coverage Start Date Coverage End Date MEDICARE Part A and B [address] [facility] [phone] NATIVIDAD HI self
--- OUTSIDE RECORDS SUMMARY | 2021-03-12 00:20 | CCD | Continuity of Care Document ---
Author Author Andrés US M.D. Organization Unknown Address [address] [place] [address] Phone [phone] Care Team Providers Care Metal Mockup Maker Name Role Phone Joshua Hernandes D.O. AUTM [phone] Problems Description No Active Problems Social History Type Date Description Comments Sex Unknown ETOH Use 2 A Day Tobacco Use Start: 04/24/74 End: 04/24/01 Patient is a forme r smoker 1 PPD HISTORY FOR 27 YEARS Smoking Status Reviewed: 01/01/21 Patient is a former smoker 1 PPD HISTORY FOR 27 YEARS Allergies, Adverse Reactions, Alerts Active Allergies Criticality Reaction | Severity Comments Date Codeine Unable to assess criticality Nausea 02/06/2019 Inactive Allergies NKDA Unable to assess criticality 01/26/2010 Medications Active Medications SIG Qnty Indications Ordering Provide r Date Mucinex 600mg Tablets ER 12HR 1 by mouth twice a day as needed 30tabs G47.Vivien Leal M.D. 08/04 Modafinil 100mg Tablets take 1 tablet by mouth in the morning, may take an additional tablet if needed Reference #: [id number] 60tabs Vivien Gray M.D. 08/04/2020 Pro Comfort Inhaler Spacer Chamber Adult Misc use with inhaler as directed 1units Kate Gray M.D. 05/13/2020 Fluticasone Propionate/Salmeterol Diskus 500-50mcg/Dose Aerosol inhale one puff by mouth twice a day 60units Vivien Us M.D. 05/13/2020 Albuterol Sulfate (2 .5mg/3ML) 0.083% Nebulizer 1 vial four times a day as needed 360ml J45.30 Teto hilario D.O. 04/21/2020 Azelastine HCL (Nasal) 137mcg/[place] Solution spray 1 spray in each nostril two times a day 30units J4 5.30 Vivien Us M.D. 12/23/2019 CPAP Device 14cm marras Vivien Us M.D. 07/11/2019 Albuterol Sulfate HFA 108(90Base) mcg/Act Aerosol inhale 1 to 2 puffs by mouth every 4 hours as needed 8.500gm Vivien Us M.D. 05/10/2019 Carvedilol 6.25mg Tablets 2 by mouth every day Jaylon Altamirano M.D. Lovastatin 20mg Tablets 1 by mouth every day Unknown Lisinopril 40mg Tablets 1 by mouth every day 30tabs Unknown Fluoxetine HCL 40mg Capsules 1 by mouth every day Unknown Omeprazole 20mg Capsules DR 1 by mouth every day Unknown Claritin-D 24 Hour 1 0-240mg Tablets ER 24HR 1 by mouth every day Unknown 000 Ofloxacin (Otic) 0.3% Solution Instill 10 Drops Into Affected Ear Once Daily For 7 Days Un known Nifedipine ER 30mg Tablets ER 24HR tab by mouth every day Unknown Immunizations CPT Code Status Date Vaccine Lot # [id number] Given 02/25/2020 Flublock, Quadrivalent Vital Signs Date Vital Result Comment 01/01/2021 1:59pm BP Systolic 120 mmHg BP Diastolic 70 mmHg Heart Rate 94 /min O2 % BldC Oximetry 96 % Height 74 inches 6'2" Weight 245.00 lb BMI (Body Mass Index) 31.5 kg/m2 [place] Body Weight 190 lb Weight 111.132 kg BSA (Body Surface Area) 2.37 m2 08/04/2020 1:51pm BP Systolic 122 mmHg BP Diastolic 76 mmHg Heart Rate 79 /min O2 % BldC Oximetry 96 % Body Temperature 96.9 F Height 74 inches 6'2" Weight 255.12 lb BMI (Body Mass Index) 32.8 kg/m2 [place] Body Weight 190 lb Weight 115.725 kg BSA (Body Surface Area) 2.41 m2 Results Test Acquired Date Facility Test Result H/L Range Note [facility] 01/01/2021 [place] [facility] SEE IMAGE FVC-Pred 5.23 L FVC-Pre 5.02 L FVC-%Pred-Pre 95 L FVC-LLN 4.18 L Fev1-Pred 3.89 L Fev1-Pre 3.96 L Fev1-%Pred-Pre 101 L Fev1-LLN 3.01 L Fev6-Pred 4.97 L Fev6-Pre 5.02 L Fev6-%Pred-Pre 100 L Fev6-LLN 3.96 L Wky0yud-Elta 74 % Ris9vnn-Vts 79 % Hgn6pcs-%Pred-Pre 106 % Dvz2ftc-NHY 65 % Ziw2rbr-Zdzf 95 % Fmg7lun-Qvn 100 % Msv4aop-%Pred-Pre 105 % FEFMax-Pred 9.57 L/E/sec FEFMax-Pre 8.77 L/E/sec FEFMax-%Pred-Pre 91 L/E/sec FEFMax-LLN 6.98 L/E/sec Mvb8037-Ctkb 3.01 L/E/sec Acm4336-Mfz 3.52 L/E/sec Ahv3370-%Pred-Pre 116 L/E/sec Btc6323-DKY 1.22 L/E/sec ExpTime-Pre 6.22 sec Jjy9yaf1-Maqb 78 % Ktu2wsu1-Eve 79 % Tyx1via6-%Pred-Pre 101 % Unf3xqj5-MFU 69 % [facility] 08/04/2020 [place] [facility] SEE IMAGE FVC-Pred 5.26 L FVC-Pre 5.09 L FVC-%Pred-Pre 96 L FVC-LLN 4.22 L Fev1-Pred 3.93 L Fev1-Pre 4.01 L Fev1-%Pred-Pre 102 L Fev1-LLN 3.04 L Fev6-Pred 5.01 L Fev6-Pre 5.09 L Fev6-%Pred-Pre 101 L Fev6-LLN 3.99 L Tob4qsf-Ssfc 74 % Efe8hlt-Fcn 79 % Mcy3zpv-%Pred-Pre 105 % Byk0hfd-IFN 65 % Vcp6maf-Sybv 95 % Rbf8oya-Gbn 100 % Xxy8abc-%Pred-Pre 105 % FEFMax-Pred 9.66 L/E/sec FEFMax-Pre 8.44 L/E/sec FEFMax-%Pred-Pre 87 L/E/sec FEFMax-LLN 7.07 L/E/sec Txh3245-Qugx 3.06 L/E/sec Xct7840-Tok 3.66 L/E/sec Gak0305-%Pred-Pre 119 L/E/sec Tat7999-UHK 1.27 L/E/sec ExpTime-Pre 6.23 sec Yub9ifc2-Cbpd 78 % Hxe8xkb3-Omc 79 % Duw8bkv8-%Pred-Pre 100 % Hbk3jig6-GWS 69 % Procedures Date Code Description Status 01/01/2021 89430 Office/Outpatient Established Mo d MDM 30-39 Min Completed 01/01/2021 46500 Spirometry Completed 08/04/2020 08228 Office/Outpatient Established Mo d MDM 30-39 Min Completed 08/04/2020 18133 Spirometry Completed Medical Devices Description No Information Available Encounters Type Date Location Provider Dx Diagnosis Office Visit 01/01/2021 2:[facility]p [facility] Vivien Gomez M.D. G47.33 Obstructive sleep apnea (alejo lt) (pediatric) J45.30 Mild persistent asthma, unco mplicated Z87.891 Personal history of nicotine dependence R91.8 Other nonspecific abnormal f inding of lung field Office Visit 08/04/2020 2:00p [facility] Vivien Gomez M.D. G47.33 Obstructive sleep apnea (alejo lt) (pediatric) J45.30 Mild persistent asthma, unco mplicated Z87.891 Personal history of nicotine dependence Assessments Date Code Description Provider 01/01/2021 G47.33 Obstructive sleep apnea (adult) (pediatric) Vivien Us M.D. 01/01/2021 J45.30 Mild persistent asthma, uncompli cated Vivien Us M.D. 01/01/2021 Z87.891 Personal history of nicotine dep endence Vivien Us M.D. 01/01/2021 R91.8 Other nonspecific abnormal findi ng of lung field Vivien Us M.D. 08/04/2020 G47.33 Obstructive sleep apnea (adult) (pediatric) Vivien Us M.D. 08/04/2020 J45.30 Mild persistent asthma, uncompli cated Vivien Us M.D. 08/04/2020 Z87.891 Personal history of nicotine dep endence Vivien Us M.D. Plan of Treatment Future Appointment(s):* 07/13/2021 3:30 pm - Vivien Us M.D. at [facility]monary[facility]acic * 06/28/2021 3:00 pm - Pulmonary Lab at [facility] Pulmonary/Thoracic 01/01/2021 - Vivien Us M.D.* G47.33 Obstructive sleep apnea (adult) (pediatric) * J45.30 Mild persistent asthma, uncomplicated * Z87.891 Personal history of nicotine dependence * R91.8 Other nonspecific abnormal finding of lung field * * Follow up:* CT chest and PFT in 6 mo, f/u afterwards Functional Status Functional Condition Comment Date Status Independent with all ADL's Activ e Independent with all IADL's Acti ve Mental Status Mental Condition Comment Date Status None Active Can understand information Activ e Referrals Description No Information Available
--- OUTSIDE RECORDS SUMMARY | 2021-03-12 00:20 | CCD ---
Continuity of Care Document (CCD) Created on: 01/01/2021 Andrés Brownlee External Reference #: [id number] : [id number] Sex: Male Author Author Andrés US M.D. Organization Unknown Address [address] [place] [address] Phone [phone] Care Team Providers Care Audio Engineer Name Role Phone Joshua Hernandes D.O. AUTM [phone] Problems Description No Active Problems Social History [...] mouth twice a day as needed 30tabs G47.33 Vivien Us M.D. 08/04 Modafinil 100mg Tablets take 1 tablet by mouth in the morning, may take an additional tablet if needed Reference #: [id number] 60tabs G47.33 Teto Allen D.O. 08/04/2020 Pro Comfort Inhaler Spacer Chamber Adult Misc use with inhaler as directed 1units Kate Gray M.D. 05/13/2020 Fluticasone Propionate/Salmeterol Diskus 500-50mcg/Dose Aerosol inhale one puff by mouth twice a day 60unVivien Garcia M.D. 05/13/2020 Albuterol Sulfate (2 .5mg/3ML) 0.083% Nebulizer 1 vial four times a day as needed 360ml J45.30 Teto hilario DRandaORanda 04/21/2020 Azelastine HCL (Nasal) 137mcg/[place] Solution spray 1 spray in each nostril [...] CPT Code Status Date Vaccine Lot # [id number] Given 02/25/2020 Afluria, Quadrivalent, 0.5ml , [facility]# 25850-725-92 Vital Signs Date Vital Result Comment 01/01/2021 1:59pm BP Systolic 120 mmHg BP Diastolic 70 mmHg Heart Rate 94 /min O2 % BldC Oximetry 96 % Height 74 inches 6'2" Weight 245.00 lb BMI (Body Mass Index) 31.5 kg/m2 [place] Body Weight 190 lb Weight 111.132 kg BSA (Body Surface Area) 2.37 m2 08/04/2020 1:51pm BP Systolic 122 mmHg BP Diastolic 76 mmHg Heart Rate 79 /min O2 % BldC Oximetry 96 % Body Temperature 96.9 F Height 74 inches 6'2" Weight 255.12 lb BMI (Body Mass Index) 32.8 kg/m2 [place] Body Weight 190 lb Weight 115.725 kg BSA (Body Surface Area) 2.41 m2 Results Test Acquired Date Facility Test Result H/L Range Note FVL/[place] 01/01/2021 [facility] SEE IMAGE FVC-Pred 5.23 L FVC-Pre 5.02 L FVC-%Pred-Pre 95 L FVC-LLN 4.18 L Fev1-Pred 3.89 L Fev1-Pre 3.96 L Fev1-%Pred-Pre 101 L Fev1-LLN 3.01 L Fev6-Pred 4.97 L Fev6-Pre 5.02 L Fev6-%Pred-Pre 100 L Fev6-LLN 3.96 L Kgs7whl-Tmed 74 % Pqe8aed-Gwc 79 % Jgt8plo-%Pred-Pre 106 % Zsf3ann-ZUN 65 % Ukr9cpc-Gmbz 95 % Bvo5jsn-Vnz 100 % Yvn8qlt-%Pred-Pre 105 % FEFMax-Pred 9.57 L/E/sec FEFMax-Pre 8.77 L/E/sec FEFMax-%Pred-Pre 91 L/E/sec FEFMax-LLN 6.98 L/E/sec Ilh1778-Gail 3.01 L/E/sec Duu0556-Tbz 3.52 L/E/sec Mnt7455-%Pred-Pre 116 L/E/sec Kyu4504-VIX 1.22 L/E/sec ExpTime-Pre 6.22 sec Kjb1mho3-Sopa 78 % Hav6xak9-Oij 79 % Mxy6qqo8-%Pred-Pre 101 % Bqr8igt0-UZK 69 % FVL/[place] 08/04/2020 [facility] SEE IMAGE FVC-Pred 5.26 L FVC-Pre 5.09 L FVC-%Pred-Pre 96 L FVC-LLN 4.22 L Fev1-Pred 3.93 L Fev1-Pre 4.01 L Fev1-%Pred-Pre 102 L Fev1-LLN 3.04 L Fev6-Pred 5.01 L Fev6-Pre 5.09 L Fev6-%Pred-Pre 101 L Fev6-LLN 3.99 L Gfa2uvi-Vcto 74 % Thf6xfj-Qih 79 % Hkc1xio-%Pred-Pre 105 % Jgf3nzl-KAN 65 % Dvu2tqo-Obdv 95 % Lvj8uyb-Njc 100 % Izy9mvk-%Pred-Pre 105 % FEFMax-Pred 9.66 L/E/sec FEFMax-Pre 8.44 L/E/sec FEFMax-%Pred-Pre 87 L/E/sec FEFMax-LLN 7.07 L/E/sec Jwa1103-Bwho 3.06 L/E/sec Dys6583-Spe 3.66 L/E/sec Isw9731-%Pred-Pre 119 L/E/sec Xdh8628-NAL 1.27 L/E/sec ExpTime-Pre 6.23 sec Fhc0mhk2-Rlxs 78 % Aoi0lmg0-Jky 79 % Eqf8czu8-%Pred-Pre 100 % Skc8qgy6-NSF 69 % Procedures Date Code Description Status 08/04/2020 32941 Office/Outpatient Established Mo d MDM 30-39 Min Completed 08/04/2020 28931 Spirometry Completed Medical Devices Description No Information Available Encounters Type Date Location Provider Dx Diagnosis Office Visit 08/04/2020 2:00p [facility] Pulmonary/Thoracic K Vivien dunn M.D. G47.33 Obstructive sleep apnea (alejo lt) (pediatric) J45.30 Mild persistent asthma, unco mplicated Z87.891 Personal history of nicotine dependence Assessments Date Code Description Provider 01/01/2021 G47.33 Obstructive sleep apnea (adult) (pediatric) Vivien Us M.D. 01/01/2021 J45.30 Mild persistent asthma, uncompli cated Vivien Us M.D. 01/01/2021 Z87.891 Personal history of nicotine dep kelechience Vivien Us M.D. 01/01/2021 R91.8 Other nonspecific abnormal findi ng of lung field Vivien Us M.D. 08/04/2020 G47.33 Obstructive sleep apnea (adult) (pediatric) Vivien Us M.D. 08/04/2020 J45.30 Mild persistent asthma, uncompli Vivien Goodwin M.D. 08/04/2020 Z87.891 Personal history of nicotine dep endence Vivien Us M.D. Plan of Treatment Future Appointment(s):* 07/13/2021 3:30 pm - Vivien Us M.D. at [facility] Pulmonary/Thoracic * 06/28/2021 3:00 pm - Pulmonary Lab at [facility] Pulmonary/Thoracic 01/01/2021 - Vivien Us M.D.* [...]
--- OUTSIDE RECORDS SUMMARY | 2021-03-12 00:20 | CCD | Continuity of Care Document ---
Author Author Andrés US M.D. Organization Unknown Address [address] [place] [address] Phone [phone] Care Team Providers Care Public Housing Manager Name Role Phone Joshua Hernandes D.O. AUTM [phone] Problems Description No Active Problems Social History [...] an additional tablet if needed Reference #: [id number] 60tabs G47.33 Teto Allen D.O. 08/04/2020 Pro Comfort Inhaler Spacer Chamber Adult Misc use with inhaler as directed 1units Kate Gray M.D. 05/13/2020 Fluticasone Propionate/Salmeterol Diskus 500-50mcg/Dose Aerosol inhale one puff by mouth twice a day 60unVivien Garcia M.D. 05/13/2020 Albuterol Sulfate (2 .5mg/3ML) 0.083% Nebulizer 1 vial four times a day as needed 360ml J45.30 Teto hilario DRandaORanda 04/21/2020 Azelastine HCL (Nasal) 137mcg/[place] Solution spray 1 spray in each nostril [...] CPT Code Status Date Vaccine Lot # [id number] Given 02/25/2020 Afluria, Quadrivalent, 0.5ml , [facility]# [id number] Vital Signs Date Vital Result Comment 01/01/2021 1:59pm BP Systolic 120 mmHg BP Diastolic 70 mmHg Heart Rate 94 /min O2 % BldC Oximetry 96 % Height 74 inches 6'2" Weight 245.00 lb BMI (Body Mass Index) 31.5 kg/m2 [place] Body Weight 190 lb Weight 111.132 kg BSA (Body Surface Area) 2.37 m2 08/04/2020 1:51pm BP Systolic 122 mmHg BP Diastolic 76 mmHg Heart Rate 79 /min O2 % BldC Oximetry 96 % Body Temperature 96.9 F Height 74 inches 6'2" Weight 255.12 lb BMI (Body Mass Index) 32.8 kg/m2 [place] Body Weight 190 lb Weight 115.725 kg BSA (Body Surface Area) 2.41 m2 Results Test Acquired Date Facility Test Result H/L Range Note FVL/Gary 01/01/2021 [employer] [facility] SEE IMAGE FVC-Pred 5.23 L FVC-Pre 5.02 L FVC-%Pred-Pre 95 L FVC-LLN 4.18 L Fev1-Pred 3.89 L Fev1-Pre 3.96 L Fev1-%Pred-Pre 101 L Fev1-LLN 3.01 L Fev6-Pred 4.97 L Fev6-Pre 5.02 L Fev6-%Pred-Pre 100 L Fev6-LLN 3.96 L Wgg6ztf-Fvmr 74 % Dta0atm-Tqd 79 % Zzc8cqt-%Pred-Pre 106 % Evp3qnz-AJT 65 % Hld7oll-Dzok 95 % Txr0hrz-Swb 100 % Nqe5zkk-%Pred-Pre 105 % FEFMax-Pred 9.57 L/E/sec FEFMax-Pre 8.77 L/E/sec FEFMax-%Pred-Pre 91 L/E/sec FEFMax-LLN 6.98 L/E/sec Lcp1356-Xpqk 3.01 L/E/sec Xff8133-Huz 3.52 L/E/sec Gqg2423-%Pred-Pre 116 L/E/sec Tiz0550-CMZ 1.22 L/E/sec ExpTime-Pre 6.22 sec Cal6ugi3-Yyda 78 % Qsq4rth9-Znz 79 % Ial3xbq4-%Pred-Pre 101 % Ept2uin6-DMR 69 % FVL/[place] 08/04/2020 [employer] [facility] SEE IMAGE FVC-Pred 5.26 L FVC-Pre 5.09 L FVC-%Pred-Pre 96 L FVC-LLN 4.22 L Fev1-Pred 3.93 L Fev1-Pre 4.01 L Fev1-%Pred-Pre 102 L Fev1-LLN 3.04 L Fev6-Pred 5.01 L Fev6-Pre 5.09 L Fev6-%Pred-Pre 101 L Fev6-LLN 3.99 L Api9dsw-Uwej 74 % Sfe3oyx-Pxp 79 % Cuo0fam-%Pred-Pre 105 % Uii4nyp-STJ 65 % Cfx6iou-Hkvs 95 % Esa4cat-Bzj 100 % Gqs7txa-%Pred-Pre 105 % FEFMax-Pred 9.66 L/E/sec FEFMax-Pre 8.44 L/E/sec FEFMax-%Pred-Pre 87 L/E/sec FEFMax-LLN 7.07 L/E/sec Qyf5347-Oblt 3.06 L/E/sec Zzg7708-Zjh 3.66 L/E/sec Vsp1846-%Pred-Pre 119 L/E/sec Kmj1632-QRP 1.27 L/E/sec ExpTime-Pre 6.23 sec Daa2hir9-Lgrb 78 % Aln1eev2-Wgp 79 % Amz8joo8-%Pred-Pre 100 % Puz8irk6-BSS 69 % Procedures Date Code Description Status 08/04/2020 16994 Office/Outpatient Established Mo d MDM 30-39 Min Completed 08/04/2020 29664 Spirometry Completed Medical Devices Description No Information Available Encounters Type Date Location Provider Dx Diagnosis Office Visit 08/04/2020 2:00p [facility] Pulmonary/Thoracic K Vivien dunn M.D. G47.33 Obstructive [...] 3:30 pm - Vivien Us M.D. at [facility] Pulmonary/Thoracic * 06/28/2021 3:00 pm - Pulmonary Lab at [facility] Pulmonary/Thoracic 01/01/2021 - Vivien Us M.D.* G47.33 [...]
--- OUTSIDE RECORDS SUMMARY | 2021-03-12 00:20 | CCD | Continuity of Care Document ---
Author Author Andrés US M.D. Organization Unknown Address [address] [place] [address] Phone [phone] Care Team Providers Care Chief Human Resources Officer Name Role Phone Joshua Hernandes D.O. AUTM [phone] Problems Description No Active Problems Social History [...] an additional tablet if needed Reference #: [id number] 60tabs G47.33 Teto Allen D.O. 08/04/2020 Pro Comfort Inhaler Spacer Chamber Adult Misc use with inhaler as directed 1units Kate Gray M.D. 05/13/2020 Fluticasone Propionate/Salmeterol Diskus 500-50mcg/Dose Aerosol inhale one puff by mouth twice a day 60unVivien Garcia M.D. 05/13/2020 Albuterol Sulfate (2 .5mg/3ML) 0.083% Nebulizer 1 vial four times a day as needed 360ml J45.30 Teto hilario DRandaORanda 04/21/2020 Azelastine HCL (Nasal) 137mcg/[place] Solution spray 1 spray in each nostril [...] CPT Code Status Date Vaccine Lot # [id number] Given 02/25/2020 Afluria, Quadrivalent, 0.5ml , [facility]# 70117-884-46 Vital Signs Date Vital Result Comment 01/01/2021 1:59pm BP Systolic 120 mmHg BP Diastolic 70 mmHg Heart Rate 94 /min O2 % BldC Oximetry 96 % Height 74 inches 6'2" Weight 245.00 lb BMI (Body Mass Index) 31.5 kg/m2 [place] Body Weight 190 lb Weight 111.132 kg BSA (Body Surface Area) 2.37 m2 08/04/2020 1:51pm BP Systolic 122 mmHg BP Diastolic 76 mmHg Heart Rate 79 /min O2 % BldC Oximetry 96 % Body Temperature 96.9 F Height 74 inches 6'2" Weight 255.12 lb BMI (Body Mass Index) 32.8 kg/m2 [place] Body Weight 190 lb Weight 115.725 kg BSA (Body Surface Area) 2.41 m2 Results Test Acquired Date Facility Test Result H/L Range Note FVL/[place] 01/01/2021 [facility] SEE IMAGE FVC-Pred 5.23 L FVC-Pre 5.02 L FVC-%Pred-Pre 95 L FVC-LLN 4.18 L Fev1-Pred 3.89 L Fev1-Pre 3.96 L Fev1-%Pred-Pre 101 L Fev1-LLN 3.01 L Fev6-Pred 4.97 L Fev6-Pre 5.02 L Fev6-%Pred-Pre 100 L Fev6-LLN 3.96 L Qhe8fvg-Eadl 74 % Bbj6uno-Jvu 79 % Lbr1sjm-%Pred-Pre 106 % Yla1bwn-ZRI 65 % Ltg7who-Obbs 95 % Ggl4mqs-Ejq 100 % Nvj8grq-%Pred-Pre 105 % FEFMax-Pred 9.57 L/E/sec FEFMax-Pre 8.77 L/E/sec FEFMax-%Pred-Pre 91 L/E/sec FEFMax-LLN 6.98 L/E/sec Usj2385-Grym 3.01 L/E/sec Kih3235-Qyy 3.52 L/E/sec Mjg5048-%Pred-Pre 116 L/E/sec Nmo2472-UHZ 1.22 L/E/sec ExpTime-Pre 6.22 sec Wwa9gld6-Pcvr 78 % Ows0fqv0-Kii 79 % Sez4ohg0-%Pred-Pre 101 % Fqp8qrh5-CPQ 69 % FVL/[place] 08/04/2020 [employer] [facility] SEE IMAGE FVC-Pred 5.26 L FVC-Pre 5.09 L FVC-%Pred-Pre 96 L FVC-LLN 4.22 L Fev1-Pred 3.93 L Fev1-Pre 4.01 L Fev1-%Pred-Pre 102 L Fev1-LLN 3.04 L Fev6-Pred 5.01 L Fev6-Pre 5.09 L Fev6-%Pred-Pre 101 L Fev6-LLN 3.99 L Mcc4yul-Ayhf 74 % Dul4nwc-Drr 79 % Ppz6xiq-%Pred-Pre 105 % Haq8bpb-IMC 65 % Jef0fsf-Dgre 95 % Zkh9yqt-Erw 100 % Tvg7xgw-%Pred-Pre 105 % FEFMax-Pred 9.66 L/E/sec FEFMax-Pre 8.44 L/E/sec FEFMax-%Pred-Pre 87 L/E/sec FEFMax-LLN 7.07 L/E/sec Bsh4251-Yrqz 3.06 L/E/sec Psm7761-Fda 3.66 L/E/sec Yqa5637-%Pred-Pre 119 L/E/sec Sck9823-MHR 1.27 L/E/sec ExpTime-Pre 6.23 sec Fqh3baa5-Lnwf 78 % Fcw7vgd0-Fpv 79 % Szk6zkg8-%Pred-Pre 100 % Ipf0yhl3-UJF 69 % Procedures Date Code Description Status 08/04/2020 45547 Office/Outpatient Established Mo d MDM 30-39 Min Completed 08/04/2020 70477 Spirometry Completed Medical Devices Description No Information Available Encounters Type Date Location Provider Dx Diagnosis Office Visit 08/04/2020 2:00p [facility] Pulmonary/Thoracic K Vivien dunn M.D. G47.33 Obstructive [...] 3:30 pm - Vivien Us M.D. at [facility] Pulmonary/Thoracic * 06/28/2021 3:00 pm - Pulmonary Lab at [facility] Pulmonary/Thoracic 01/01/2021 - Vivien Us M.D.* G47.33 [...]
--- OUTSIDE RECORDS SUMMARY | 2021-03-12 00:20 | CCD | Continuity of Care Document ---
Author Author Andrés US M.D. Organization Unknown Address [address] [place] [address] Phone [phone] Care Team Providers Care Smoke Tester Name Role Phone Joshua Hernandes D.O. AUTM [phone] Problems Description No Active Problems Social History [...] an additional tablet if needed Reference #: [id number] 60tabs G47.33 Teto Allen D.O. 08/04/2020 Pro Comfort Inhaler Spacer Chamber Adult Misc use with inhaler as directed 1units Kate Gray M.D. 05/13/2020 Fluticasone Propionate/Salmeterol Diskus 500-50mcg/Dose Aerosol inhale one puff by mouth twice a day 60unVivien Garcia M.D. 05/13/2020 Albuterol Sulfate (2 .5mg/3ML) 0.083% Nebulizer 1 vial four times a day as needed 360ml J45.30 Teto hilario DRandaORanda 04/21/2020 Azelastine HCL (Nasal) 137mcg/[place] Solution spray 1 spray in each nostril [...] CPT Code Status Date Vaccine Lot # [id number] Given 02/25/2020 Afluria, Quadrivalent, 0.5ml , [facility]# [id number] Vital Signs Date Vital Result Comment 01/01/2021 1:59pm BP Systolic 120 mmHg BP Diastolic 70 mmHg Heart Rate 94 /min O2 % BldC Oximetry 96 % Height 74 inches 6'2" Weight 245.00 lb BMI (Body Mass Index) 31.5 kg/m2 [place] Body Weight 190 lb Weight 111.132 kg BSA (Body Surface Area) 2.37 m2 08/04/2020 1:51pm BP Systolic 122 mmHg BP Diastolic 76 mmHg Heart Rate 79 /min O2 % BldC Oximetry 96 % Body Temperature 96.9 F Height 74 inches 6'2" Weight 255.12 lb BMI (Body Mass Index) 32.8 kg/m2 [place] Body Weight 190 lb Weight 115.725 kg BSA (Body Surface Area) 2.41 m2 Results Test Acquired Date Facility Test Result H/L Range Note FVL/[place] 01/01/2021 [employer] [facility] SEE IMAGE FVC-Pred 5.23 L FVC-Pre 5.02 L FVC-%Pred-Pre 95 L FVC-LLN 4.18 L Fev1-Pred 3.89 L Fev1-Pre 3.96 L Fev1-%Pred-Pre 101 L Fev1-LLN 3.01 L Fev6-Pred 4.97 L Fev6-Pre 5.02 L Fev6-%Pred-Pre 100 L Fev6-LLN 3.96 L Wua1bzp-Izic 74 % Ylf4hrt-Yly 79 % Jce1pte-%Pred-Pre 106 % Qks2etu-LHC 65 % Xwv3dhk-Sbrf 95 % Ihq3yur-Lwg 100 % Bcr8uua-%Pred-Pre 105 % FEFMax-Pred 9.57 L/E/sec FEFMax-Pre 8.77 L/E/sec FEFMax-%Pred-Pre 91 L/E/sec FEFMax-LLN 6.98 L/E/sec Nwu9026-Ivye 3.01 L/E/sec Zsa9932-Yfh 3.52 L/E/sec Nuc6034-%Pred-Pre 116 L/E/sec Qua6637-ASA 1.22 L/E/sec ExpTime-Pre 6.22 sec Dqr7zji2-Xpeg 78 % Iqc4tli7-Pai 79 % Neb2hpe2-%Pred-Pre 101 % Skz7upn8-HYQ 69 % FVL/[place] 08/04/2020 [employer] PD[facility] SEE IMAGE FVC-Pred 5.26 L FVC-Pre 5.09 L FVC-%Pred-Pre 96 L FVC-LLN 4.22 L Fev1-Pred 3.93 L Fev1-Pre 4.01 L Fev1-%Pred-Pre 102 L Fev1-LLN 3.04 L Fev6-Pred 5.01 L Fev6-Pre 5.09 L Fev6-%Pred-Pre 101 L Fev6-LLN 3.99 L Zsx0kiu-Ordm 74 % Cum6wlj-Hsd 79 % Psc3gqc-%Pred-Pre 105 % Iyy8odb-LDU 65 % Cyh0kzu-Cyct 95 % Moy8ezl-Igt 100 % Zmx5awh-%Pred-Pre 105 % FEFMax-Pred 9.66 L/E/sec FEFMax-Pre 8.44 L/E/sec FEFMax-%Pred-Pre 87 L/E/sec FEFMax-LLN 7.07 L/E/sec Cag6695-Qzqd 3.06 L/E/sec Ycx8444-Kko 3.66 L/E/sec Xyz5475-%Pred-Pre 119 L/E/sec Kkk4288-AAO 1.27 L/E/sec ExpTime-Pre 6.23 sec Nus2hro8-Wtto 78 % Guc8kvm1-Vay 79 % Fyt6wwo2-%Pred-Pre 100 % End1jki6-KFD 69 % Procedures Date Code Description Status 08/04/2020 81626 Office/Outpatient Established Mo d MDM 30-39 Min Completed 08/04/2020 74868 Spirometry Completed Medical Devices Description No Information Available Encounters Type Date Location Provider Dx Diagnosis Office Visit 08/04/2020 2:00p [facility] Pulmonary/Thoracic K Vivien dunn M.D. G47.33 [...] 08/04/2020 J45.30 Mild persistent asthma, uncompli Vivien Godowin M.D. 08/04/2020 Z87.891 Personal history of nicotine dep endence Vivien Us M.D. Plan of Treatment Future Appointment(s):* 07/13/2021 3:30 pm - Vivien Us M.D. at [facility] Pulmonary/Thoracic * 06/28/2021 3:00 pm - Pulmonary Lab at [facility] Pulmonary/Thoracic 01/01/2021 - Vivien Us M.D.* [...]
--- OUTSIDE RECORDS SUMMARY | 2021-03-12 00:20 | CCD | Continuity of Care Document ---
Author Author Andrés US M.D. Organization Unknown Address [address] [place] [address] Phone [phone] Care Team Providers Care Airport Operations Supervisor Name Role Phone Joshua Hernandes D.O. AUTM [phone] Problems Description No Active Problems Social History [...] an additional tablet if needed Reference #: [id number] 60tabs G47.33 Teto Allen D.O. 08/04/2020 Pro Comfort Inhaler Spacer Chamber Adult Misc use with inhaler as directed 1units Kate Gray M.D. 05/13/2020 Fluticasone Propionate/Salmeterol Diskus 500-50mcg/Dose Aerosol inhale one puff by mouth twice a day 60unVivien Garcia M.D. 05/13/2020 Albuterol Sulfate (2 .5mg/3ML) 0.083% Nebulizer 1 vial four times a day as needed 360ml J45.30 Teto hilario DRandaORanda 04/21/2020 Azelastine HCL (Nasal) 137mcg/[place] Solution spray 1 spray in each nostril [...] CPT Code Status Date Vaccine Lot # [id number] Given 02/25/2020 Afluria, Quadrivalent, 0.5ml , [facility]# [id number] Vital Signs Date Vital Result Comment 01/01/2021 1:59pm BP Systolic 120 mmHg BP Diastolic 70 mmHg Heart Rate 94 /min O2 % BldC Oximetry 96 % Height 74 inches 6'2" Weight 245.00 lb BMI (Body Mass Index) 31.5 kg/m2 [place] Body Weight 190 lb Weight 111.132 kg BSA (Body Surface Area) 2.37 m2 08/04/2020 1:51pm BP Systolic 122 mmHg BP Diastolic 76 mmHg Heart Rate 79 /min O2 % BldC Oximetry 96 % Body Temperature 96.9 F Height 74 inches 6'2" Weight 255.12 lb BMI (Body Mass Index) 32.8 kg/m2 [place] Body Weight 190 lb Weight 115.725 kg BSA (Body Surface Area) 2.41 m2 Results Test Acquired Date Facility Test Result H/L Range Note FVL/[place] 01/01/2021 [employer] [facility] SEE IMAGE FVC-Pred 5.23 L FVC-Pre 5.02 L FVC-%Pred-Pre 95 L FVC-LLN 4.18 L Fev1-Pred 3.89 L Fev1-Pre 3.96 L Fev1-%Pred-Pre 101 L Fev1-LLN 3.01 L Fev6-Pred 4.97 L Fev6-Pre 5.02 L Fev6-%Pred-Pre 100 L Fev6-LLN 3.96 L Sjr0bym-Wfbe 74 % Fcm1czj-Ahh 79 % Dla4ctr-%Pred-Pre 106 % Utz2ntx-DBS 65 % Cfn1typ-Nxuo 95 % Fps0vdv-Nsk 100 % Fwz9vui-%Pred-Pre 105 % FEFMax-Pred 9.57 L/E/sec FEFMax-Pre 8.77 L/E/sec FEFMax-%Pred-Pre 91 L/E/sec FEFMax-LLN 6.98 L/E/sec Ivx9636-Xozb 3.01 L/E/sec Ztc3704-Giv 3.52 L/E/sec Gmc2698-%Pred-Pre 116 L/E/sec Pwo1470-QME 1.22 L/E/sec ExpTime-Pre 6.22 sec Qqo4xzk2-Fouv 78 % Zzx5tbh2-Rky 79 % Fml4roj2-%Pred-Pre 101 % Xfw9vyz7-NDP 69 % FVL/[place] 08/04/2020 [employer] [facility] SEE IMAGE FVC-Pred 5.26 L FVC-Pre 5.09 L FVC-%Pred-Pre 96 L FVC-LLN 4.22 L Fev1-Pred 3.93 L Fev1-Pre 4.01 L Fev1-%Pred-Pre 102 L Fev1-LLN 3.04 L Fev6-Pred 5.01 L Fev6-Pre 5.09 L Fev6-%Pred-Pre 101 L Fev6-LLN 3.99 L Alz2ufo-Itul 74 % Sct3exn-Pam 79 % Igp3qkf-%Pred-Pre 105 % Iuq2xjs-CCE 65 % Bva2hkk-Zvqv 95 % Oxb9xbt-Nic 100 % Rbl0amw-%Pred-Pre 105 % FEFMax-Pred 9.66 L/E/sec FEFMax-Pre 8.44 L/E/sec FEFMax-%Pred-Pre 87 L/E/sec FEFMax-LLN 7.07 L/E/sec Dze7234-Afes 3.06 L/E/sec Hdi1851-Aqq 3.66 L/E/sec Dmt4847-%Pred-Pre 119 L/E/sec Qka0180-NBS 1.27 L/E/sec ExpTime-Pre 6.23 sec Ash0iky5-Tzxu 78 % Jmg3hqz1-Pbe 79 % Faz1ewz1-%Pred-Pre 100 % Dom5ayy2-GNI 69 % Procedures Date Code Description Status 08/04/2020 84220 Office/Outpatient Established Mo d MDM 30-39 Min Completed 08/04/2020 49762 Spirometry Completed Medical Devices Description No Information Available Encounters Type Date Location Provider Dx Diagnosis Office Visit 08/04/2020 2:00p [facility] Pulmonary/Thoracic K Vivien dunn M.D. G47.33 [...] 3:30 pm - Vivien Us M.D. at [facility] Pulmonary/Thoracic * 06/28/2021 3:00 pm - Pulmonary Lab at [facility] Pulmonary/Thoracic 01/01/2021 - Vivien Us M.D.* [...]
--- OUTSIDE RECORDS SUMMARY | 2021-03-12 00:21 | CCD ---
Author Author [facility] Organization [facility] Address Unknown Phone Unavailable Care Team Providers Care Divine Healer Name Role Phone Shoemaker, Emilie JAVA J2EE APPLICATION DEVELOPER Unavailable Unavailable Shoemaker, Emilie JAVA J2EE APPLICATION DEVELOPER Unavailable Unavailable Shoemaker, Emilie JAVA J2EE APPLICATION DEVELOPER Unavailable Unavailable Shoemaker, Emilie JAVA J2EE APPLICATION DEVELOPER Unavailable Unavailable Shoemaker, Emilie JAVA J2EE APPLICATION DEVELOPER Unavailable Unavailable Shoemaker, Emilie JAVA J2EE APPLICATION DEVELOPER Unavailable Unavailable Shoemaker, Emilie JAVA J2EE APPLICATION DEVELOPER Unavailable Unavailable Shoemaker, Emilie JAVA J2EE APPLICATION DEVELOPER Unavailable Unavailable Shoemaker, Emilie JAVA J2EE APPLICATION DEVELOPER Unavailable Unavailable Shoemaker, Emilie JAVA J2EE APPLICATION DEVELOPER Unavailable Unavailable Shoemaker, Emilie JAVA J2EE APPLICATION DEVELOPER Unavailable Unavailable Shoemaker, Emilie JAVA J2EE APPLICATION DEVELOPER Unavailable Unavailable Shoemaker, Emilie JAVA J2EE APPLICATION DEVELOPER Unavailable Unavailable Vivien Ponce MD Unavailable Unavailable [...] Unavailable Unavailable Vivien Ponce MD Unavailable Unavailable Kris, Vivien CARTER Unavailable Unavailable Kris, Vivien CARTER Unavailable Unavailable Kris, Vivien MD Unavailable Unavailable Kris, Vivien MD Unavailable Unavailable Kris, Vivien MD Unavailable Unavailable Kris, Vivien MD Unavailable Unavailable Kris, Vivien MD Unavailable Unavailable Kris, Vivien MD Unavailable Unavailable Kris, Vivien MD Unavailable Unavailable Kris, Vivien MD Unavailable Unavailable Kris, Vivien MD Unavailable Unavailable Kris, Vivien MD Unavailable Unavailable Kris, Vivien MD Unavailable Unavailable Kris, Vivien MD Unavailable Unavailable Kris, Vivien MD Unavailable Unavailable Kris, Vivien MD Unavailable Unavailable Burnett, Nicolasa Cornelia PA Unavailable [...] is protected by Article 27-F of the [facility] Public Health law. If you continue you may have access to information: Regarding HIV / AIDS; Provided by facilities licensed or operated by the [facility] Office of Mental Health; or Provided by the [facility] Office for People With Developmental Disabilities. If such information is present, then the following [facility] mandated warning applies: This information has been [...] NOT sufficient authorization for further disc losure. Family History Family Member Name Family Member Gender Family Member Status Date o f Status Description Data Source(s) Unknown Unknown Problem MEDENT ([facility], ) Encounters Encounter Providers Location Date Indications Data Source(s ) Unknown [address] [facility] [address] 01/21/2021 12:00:00 AM EDT eCW1 ([facility]) Outpatient Attender: Vivien Lewis/Charity/Chris/Hernandez hi 01/01/2021 02:00:00 PM EDT MEDENT ([facility], ) [place] [address] [facility] [place] [address] 12/09/2020 12:00:00 AM EDT eCW1 ([facility]) Unknown [address] [facility] [place] [address] 10/12/2020 12:00:00 AM EDT eCW1 ([facility]) Outpatient [address] [facility] [place] [address] 10/12/2020 12:00:00 AM EDT eCW1 ([facility]) [place] [address] [facility] [address] 09/07/2020 12:00:00 AM EDT eCW1 ([facility]) Outpatient Attender: Vivien Lewis/Charity/Chris/Hernandez hi 08/04/2020 02:00:00 PM EDT MEDENT ([facility], ) [place] [address] [facility] [place] [address] 07/16/2020 12:00:00 AM EDT eCW1 ([facility]) [place] [address] [facility] [address] 07/09/2020 12:00:00 AM EDT eCW1 ([facility]) [place]patient [address] [facility] [address] 06/11/2020 12:00:00 AM EST [facility]CW1 ([facility]) Outpatient Attender: Vivien Lewis/Charity/Chris/Hernandez ndrobert 05/13/2020 07:30:00 AM EST MED[facility] ([facility] [place] [address] [facility] [address] 05/05/2020 12:00:00 AM EST eCW1 ([facility]) Outpatient [address] [facility] [place] [address] 04/27/2020 12:00:00 AM EST eCW1 ([facility]) Unknown [address] [facility] [address] 04/27/2020 12:00:00 AM EST [facility] [place] [address] [facility] [address] 04/27/2020 12:00:00 AM EST [facility]CW1 [facility] Outpatient Attender: Cornelia brooks 04/18/2020 09:45:00 AM EST MEDENT ([facility]) Outpatient Attender: Emilie chan 03/28/2020 11:30:00 AM EST MEDENT ([facility]) Outpatient Attender: Vivien Lewis/Charity/Chris/Hernandez ndrobert 02/25/2020 02:00:00 PM EST MED[facility] ([facility]) [place] [address] [facility] [address] 02/24/2020 12:00:00 AM EST [facility]CW1 [facility] Unknown [address] [facility] [place] [address] 02/24/2020 12:00:00 AM EST eCW1 ([facility]) [place] [address] [facility] [address] 02/21/2020 12:00:00 AM EDT eCW1 ([facility]) Out[place] [address] [facility] [address] 02/20/2020 12:00:00 AM EDT eCW1 ([facility]) Unknown [address] [facility] [address] 02/12/2020 12:00:00 AM EDT eCW1 ([facility]) Unknown [address] [facility] [address] 01/21/2020 12:00:00 AM EDT eCW1 ([facility]) Immunizations Vaccine Date Status Description Data Source(s) COVID-19 VACCINE Moderna 08/24/2020 12:00:00 AM EDT completed [facility] Vaccine Series Complete: YESThis Data wa s Submitted to [facility] Via kSARIA. COVID-19 VACC,MRNA(MODERNA)/PF 08/24/2020 12:00:00 AM EDT completed [facility] COVID-19 VACCINE Moderna 07/24/2020 12:00:00 AM EDT completed [facility] Vaccine Series Complete: NOThis Data was Submitted to [facility] Via kSARIA. COVID-19 VACCINE, MRNA-1273, LNP-S (MODERNA)/PF 07/24/2020 1 2:00:00 AM EDT completed [facility] New in 2011. IIV4 02/25/2020 01:26:00 AM EST completed MEDENT ([facility], ) Medications Medication Brand Name Start Date Product Form Dose Route Admi nistrative Instructions Pharmacy Instructions Status Indications Reaction Description Data Source(s) 240 mcg/0.7 mL 03/05/2021 12:00:00 AM EST syringe 0 INJECT DIRECTED INJECT DIRECTED SOLD: 03/05/2021 [facility] 12 HR Guaifenesin 600 MG Extended Release Oral Tablet [Mucin ex] Mucinex 08/04/2020 12:00:00 AM EDT ORAL active MEDENT ([facility], ) modafinil 100 MG Oral Tablet Modafinil 08/04/2020 12:00:00 AM EDT ORAL active MEDENT ([facility], ) Fluoxetine 60 MG Oral Tablet FLUoxetine HCl 60 MG FLUoxetine HCl 60 MG 06/11/2020 12:00:00 AM EST 1.0 {tablet} active FLUoxetine HCl 60 MG eCW1 ([facility]) Chlorthalidone 25 MG Oral Tablet Chlorthalidone 25 MG 2020 12:00:00 AM EST 1.0 {tablet_in_the_morning_with_food} active Chlorthalidone 25 MG eCW1 ([facility]) Pro Comfort Inhaler Spacer Chamber Adult 05/13/2020 12:00:00 AM EST active MEDENT ([facility], ) 60 ACTUAT Fluticasone propionate 0.5 MG/ ACTUAT / salmeterol 0.05 MG/ACTUAT Dry Powder Inhaler Fluticasone Propionate/Salmeterol Diskus 05/13/2020 12 :00:00 AM EST ORAL active MEDENT ([facility], ) 60 ACTUAT formoterol fumarate 0.005 MG/A CTUAT / mometasone furoate 0.2 MG/ACTUAT Metered Dose Inhaler [Dulera] Dulera 05/13/2020 12:00:00 AM EST RESPIRATORY completed MEDENT ([facility], ) Prednisone 10 MG Oral Tablet Prednisone 04/21/2020 12:00:00 AM EST ORAL completed MEDENT ([facility], ) Albuterol 0.83 MG/ML Inhalant Solution Albuterol Sulfate 1 06/22/2019 12:00:00 AM EST active MEDENT ([facility], ) Prednisone 20 MG Oral Tablet Prednisone 03/28/2020 12:00:00 AM EST completed MED[facility] ([facility]) modafinil 100 MG Oral Tablet Modafinil 02/25/2020 12:00:00 AM EST ORAL completed MEDENT ([facility], ) Ofloxacin 3 MG/ML Ophthalmic Solution Ofloxacin 0.3 % Ofloxa aashish 0.3 % 02/24/2020 12:00:00 AM EST 10.0 {drops_into_affected_ear} active Ofloxacin 0.3 % eCW1 ([facility]) Ofloxacin 3 MG/ML Ophthalmic Solution Ofloxacin 0.3 % Ofloxa aashish 0.3 % 02/24/2020 12:00:00 AM EST 10.0 {drops_into_affected_ear} active Ofloxacin 0.3 % eCW1 ([facility]) Ofloxacin 3 MG/ML Ophthalmic Solution Ofloxacin 0.3 % Ofloxa aashish 0.3 % 02/24/2020 12:00:00 AM EST 10.0 {drops_into_affected_ear} active Ofloxacin 0.3 % eCW1 ([facility]) Ofloxacin 3 MG/ML Ophthalmic Solution Ofloxacin 0.3 % Ofloxa aashish 0.3 % 02/24/2020 12:00:00 AM EST 10.0 {drops_into_affected_ear} active Ofloxacin 0.3 % eCW1 ([facility]) Ofloxacin 3 MG/ML Ophthalmic Solution Ofloxacin 0.3 % Ofloxa aashish 0.3 % 02/24/2020 12:00:00 AM EST 10.0 {drops_into_affected_ear} active Ofloxacin 0.3 % eCW1 ([facility]) Ofloxacin 3 MG/ML Ophthalmic Solution Ofloxacin 0.3 % Ofloxa aashish 0.3 % 02/24/2020 12:00:00 AM EST 10.0 {drops_into_affected_ear} suspended Ofloxacin 0.3 % eCW1 ([facility]) Ofloxacin 3 MG/ML Ophthalmic Solution Ofloxacin 0.3 % Ofloxa aashish 0.3 % 02/24/2020 12:00:00 AM EST 10.0 {drops_into_affected_ear} active Ofloxacin 0.3 % eCW1 ([facility]) Ofloxacin 3 MG/ML Ophthalmic Solution Ofloxacin 0.3 % Ofloxa aashish 0.3 % 02/24/2020 12:00:00 AM EST 10.0 {drops_into_affected_ear} active Ofloxacin 0.3 % eCW1 ([facility]) Ofloxacin 3 MG/ML Ophthalmic Solution Ofloxacin 0.3 % Ofloxa aashish 0.3 % 02/24/2020 12:00:00 AM EST 10.0 {drops_into_affected_ear} active Ofloxacin 0.3 % eCW1 ([facility]) Ciprofloxacin-Hydrocortisone 0.2-1 % UNK 02/20/2020 12:00:00 AM EDT active Ciprofloxacin-Hydrocortisone 0.2 -1 % eCW1 ([facility]) Ciprofloxacin-Hydrocortisone 0.2-1 % UNK 02/20/2020 12:00:00 AM EDT active Ciprofloxacin-Hydrocortisone 0.2 -1 % eCW1 ([facility]) Ciprofloxacin-Hydrocortisone 0.2-1 % UNK 02/20/2020 12:00:00 AM EDT suspended Ciprofloxacin-Hydrocortisone 0.2 -1 % eCW1 ([facility]) Ciprofloxacin-Hydrocortisone 0.2-1 % UNK 02/20/2020 12:00:00 AM EDT active Ciprofloxacin-Hydrocortisone 0.2 -1 % eCW1 ([facility]) Ciprofloxacin-Hydrocortisone 0.2-1 % UNK 02/20/2020 12:00:00 AM EDT active Ciprofloxacin-Hydrocortisone 0.2 -1 % eCW1 ([facility]) Ciprofloxacin-Hydrocortisone 0.2-1 % UNK 02/20/2020 12:00:00 AM EDT active Ciprofloxacin-Hydrocortisone 0.2 -1 % eCW1 ([facility]) Ciprofloxacin-Hydrocortisone 0.2-1 % UNK 02/20/2020 12:00:00 AM EDT active Ciprofloxacin-Hydrocortisone 0.2 -1 % eCW1 ([facility]) Ciprofloxacin-Hydrocortisone 0.2-1 % UNK 02/20/2020 12:00:00 AM EDT active Ciprofloxacin-Hydrocortisone 0.2 -1 % eCW1 ([facility]) Ciprofloxacin-Hydrocortisone 0.2-1 % UNK 02/20/2020 12:00:00 AM EDT active Ciprofloxacin-Hydrocortisone 0.2 -1 % eCW1 ([facility]) Triamcinolone Acetonide 1 MG/ML Topical Cream Triamcin olone Acetonide 0.1 % Triamcinolone Acetonide 0.1 % 01/21/2020 12:00:00 AM EDT 1.0 {appli cation} active Triamcinolone Acetonide 0 .1 % eCW1 ([facility]) Triamcinolone Acetonide 1 MG/ML Topical Cream Triamcin olone Acetonide 0.1 % Triamcinolone Acetonide 0.1 % 01/21/2020 12:00:00 AM EDT 1.0 {appli cation} suspended Triamcinolone Acetonide 0 .1 % eCW1 ([facility]) Triamcinolone Acetonide 1 MG/ML Topical Cream Triamcin olone Acetonide 0.1 % Triamcinolone Acetonide 0.1 % 01/21/2020 12:00:00 AM EDT 1.0 {appli cation} active Triamcinolone Acetonide 0 .1 % eCW1 ([facility]) Triamcinolone Acetonide 1 MG/ML Topical Cream Triamcin olone Acetonide 0.1 % Triamcinolone Acetonide 0.1 % 01/21/2020 12:00:00 AM EDT 1.0 {appli cation} active Triamcinolone Acetonide 0 .1 % eCW1 ([facility]) Triamcinolone Acetonide 1 MG/ML Topical Cream Triamcin olone Acetonide 0.1 % Triamcinolone Acetonide 0.1 % 01/21/2020 12:00:00 AM EDT 1.0 {appli cation} active Triamcinolone Acetonide 0 .1 % eCW1 ([facility]) Triamcinolone Acetonide 1 MG/ML Topical Cream Triamcin olone Acetonide 0.1 % Triamcinolone Acetonide 0.1 % 01/21/2020 12:00:00 AM EDT 1.0 {appli cation} active Triamcinolone Acetonide 0 .1 % eCW1 ([facility]) Triamcinolone Acetonide 1 MG/ML Topical Cream Triamcin olone Acetonide 0.1 % Triamcinolone Acetonide 0.1 % 01/21/2020 12:00:00 AM EDT 1.0 {appli cation} active Triamcinolone Acetonide 0 .1 % eCW1 ([facility]) Triamcinolone Acetonide 1 MG/ML Topical Cream Triamcin olone Acetonide 0.1 % Triamcinolone Acetonide 0.1 % 01/21/2020 12:00:00 AM EDT 1.0 {appli cation} active Triamcinolone Acetonide 0 .1 % eCW1 ([facility]) Triamcinolone Acetonide 1 MG/ML Topical Cream Triamcin olone Acetonide 0.1 % Triamcinolone Acetonide 0.1 % 01/21/2020 12:00:00 AM EDT 1.0 {appli cation} active Triamcinolone Acetonide 0 .1 % eCW1 ([facility]) Triamcinolone Acetonide 1 MG/ML Topical Cream Triamcin olone Acetonide 0.1 % Triamcinolone Acetonide 0.1 % 01/21/2020 12:00:00 AM EDT 1.0 {appli cation} active Triamcinolone Acetonide 0 .1 % eCW1 ([facility]) Triamcinolone Acetonide 1 MG/ML Topical Cream Triamcin olone Acetonide 0.1 % Triamcinolone Acetonide 0.1 % 01/21/2020 12:00:00 AM EDT 1.0 {appli cation} active Triamcinolone Acetonide 0 .1 % eCW1 ([facility]) Insurance Providers Payer name Policy type / Coverage type Policy ID Covered alliance party ID Covered alliance party's relationship to velasco Policy [place] Plan Information MEDICARE [id number] SP [id number] MEDICARE [id number] SP [id number] A MEDICARE C [id number] S [id number] [facility] PART B C [id number] S [id number] ANSI-Not a Secondary Insurance [id number] ANSI-Medicare Part B [id number] ANSI-Not a Secondary Insurance [id number] ANSI-Not a Secondary Insurance [id number] ANSI-Medicare Part B [id number] ANSI-Not a Secondary Insurance [id number] ANSI-Not a Secondary Insurance [id number] ANSI-Not a Secondary Insurance [id number] ANSI-Medicare Part B [id number] MEDICARE [id number] SP [id number] ANSI-Not a Secondary Insurance [id number] ANSI-Not a Secondary Insurance [id number] SELF PAY ONLY SP ANSI-Not a Secondary Insurance [id number] ANSI-Not a Secondary Insurance [id number] ANSI-Not a Secondary Insurance [id number] ANSI-Not a Secondary Insurance [id number] SELF PAY ONLY - [id number] SP ANSI-Not a Secondary Insurance [id number] ANSI-Not a Secondary Insurance [id number] [facility] [id number] SP [id number] [facility] Part B [id number] Self [id number] [facility] Commercial [id number] Self [id number] [facility] [id number] SP [id number] [facility] [id number] SP [id number] [facility] [id number] SP [id number] SELF PAY UNAVAILABLE SP UNAVAILA BLE CANCER SERVICES PROGRAM [id number] SP [id number] Problems, Conditions, and Diagnoses Code Display Name Description Problem Type Effective Dates Data Source(s) F41.9 [id number] Anxiety Problem 06/11/2020 12:00:00 AM ES T eCW1 ([facility]) J30.2 [id number] Seasonal allergies Problem 02/27/2020 12:00: 00 AM EST eCW1 ([facility]) H60.93 [id number] Otitis externa of marzena th ears, unspecified chronicity, unspecified type Problem 02/20/2020 12:00:00 AM EDT eCW1 ([facility]) Surgeries/Procedures Procedure Description Date Indications Data Source(s) Spirometry 01/01/2021 12:00:00 AM EDT M EDENT ([facility]) OFFICE OUTPATIENT VISIT 25 MINUTES 01/01/2021 12:00:00 AM EDT MEDENT ([facility]) Spirometry 08/04/2020 12:00:00 AM EDT EDENT ([facility]) OFFICE OUTPATIENT VISIT 25 MINUTES 08/04/2020 12:00:00 AM EDT MEDENT ([facility]) DEMO&/EVAL OF PT UTILIZ AERSL GEN/NEB/INHLR/IPPB 05/13 12:00:00 AM EST MEDENT ([facility]) Spirometry 02/25/2020 12:00:00 AM EST EDENT ([facility]) Results ID Date Data Source [id number] 01/01/2021 01:58:00 PM EDT MEDENT ([facility]) Name Value Range Interpretation Code Description Data Saba rce(s) Supporting Document(s) PDFReport Laboratory test result MEDENT ([facility]) FVC-Pred 5.23 L MEDENT ([facility]) FVC-Pre 5.02 L MEDENT ([facility]) FVC-%Pred-Pre 95 L MEDENT ([facility]) FVC-LLN 4.18 L MEDENT ([facility]) Fev1-Pred 3.89 L MEDENT ([facility]) Fev1-%Pred-Pre 101 L MEDENT ([facility]) Fev1-Pre 3.96 L MEDENT ([facility]) Fev6-Pre 5.02 L MEDENT ([facility]) Fev6-Pred 4.97 L MEDENT ([facility], ) Fev1-LLN 3.01 L MEDENT ([facility]) Yox0zku-Qqsc 74 % MEDENT ([facility]) Fev6-LLN 3.96 L MEDENT ([facility]) Fev6-%Pred-Pre 100 L MEDENT ([facility]) Vtc9lvl-Rxz 79 % MEDENT ([facility]) Dkz0rlb-%Pred-Pre 106 % MEDENT ([facility]) Rgz9eza-VMH 65 % MEDENT ([facility]) Ahe9sec-Mdar 95 % MEDENT ([facility]) Kfg4fve-%Pred-Pre 105 % MEDENT ([facility]) Hfg4bfu-Gyu 100 % MEDENT ([facility]) FEFMax-Pre 8.77 L/E/sec MEDENT ([facility]) FEFMax-Pred 9.57 L/E/sec MEDENT ([facility]) FEFMax-%Pred-Pre 91 L/E/sec MEDENT ([facility]) FEFMax-LLN 6.98 L/E/sec MEDENT ([facility]) Iah2366-Pbad 3.01 L/E/sec MEDENT ([facility]) Pby1122-Pxl 3.52 L/E/sec MEDENT ([facility]) Elu5720-BRI 1.22 L/E/sec MEDENT ([facility]) Kma4417-%Pred-Pre 116 L/E/sec MEDENT ([facility]) Ncx0oks8-%Pred-Pre 101 % MEDENT ([facility]) ExpTime-Pre 6.22 sec MEDENT ([facility]) Txx9odf7-Fbnu 78 % MEDENT ([facility]) Vxx3gmp9-Qcr 79 % MEDENT ([facility]) Yez4ryc0-HEH 69 % MEDENT ([facility]) ID Date Data Source [id number] 08/04/2020 01:50:00 PM EDT MEDENT ([facility]) Name Value Range Interpretation Code Description Data Saba rce(s) Supporting Document(s) PDFReport Laboratory test result MEDENT ([facility]) FVC-Pred 5.26 L MEDENT ([facility]) FVC-Pre 5.09 L MEDENT ([facility]) FVC-%Pred-Pre 96 L MEDENT ([facility]) FVC-LLN 4.22 L MEDENT ([facility]) Fev1-Pred 3.93 L MEDENT ([facility]) Fev1-Pre 4.01 L MEDENT ([facility]) Fev1-LLN 3.04 L MEDENT ([facility]) Fev1-%Pred-Pre 102 L MEDENT ([facility]) Fev6-%Pred-Pre 101 L MEDENT ([facility]) Fev6-Pred 5.01 L MEDENT ([facility]) Fev6-Pre 5.09 L MEDENT ([facility]) Fev6-LLN 3.99 L MEDENT ([facility]) Zqq7nzj-Owbg 74 % MEDENT ([facility]) Jxx8yri-WFQ 65 % MEDENT ([facility]) Rcm5rut-%Pred-Pre 105 % MEDENT ([facility]) Efk8pzf-Dxd 79 % MEDENT ([facility]) Zru3tlf-Sjra 95 % MEDENT ([facility]) Dxj0hvc-Ady 100 % MEDENT ([facility]) Xcm9zyt-%Pred-Pre 105 % MEDENT ([facility]) FEFMax-Pred 9.66 L/E/sec MEDENT ([facility]) FEFMax-%Pred-Pre 87 L/E/sec MEDENT ([facility]) FEFMax-Pre 8.44 L/E/sec MEDENT ([facility]) FEFMax-LLN 7.07 L/E/sec MEDENT ([facility]) Nfz4223-Dvqm 3.06 L/E/sec MEDENT ([facility]) Obg8478-Fpc 3.66 L/E/sec MEDENT ([facility]) Vya6095-ZLF 1.27 L/E/sec MEDENT ([facility]) ExpTime-Pre 6.23 sec MEDENT ([facility]) Djv7236-%Pred-Pre 119 L/E/sec MEDENT ([facility]) Ryb7mzi7-Ktik 78 % MEDENT ([facility]) Kbs5okf6-Wqg 79 % MEDENT ([facility]) Iva0hnc9-XTH 69 % MEDENT ([facility]) Ubt8xbw7-%Pred-Pre 100 % MEDENT ([facility]) ID Date Data Source [id number] 04/18/2020 12:00:00 AM EST [facility] Name Value Range Interpretation Code Description Data Saba rce(s) Supporting Document(s) SARS-[facility]2 [facility] was reported by Jose R bennett. Procedure Social History Code Duration Value Status Description Data Source(s ) Smoking 01/01/2021 12:00:00 AM EDT - 04/24/2001 12:00:00 AM EST Patient is a former smoker completed Patient is a former smoker MEDENT ([facility], ) Smoking 10/12/2020 12:00:00 AM EDT Former Smoker completed Former Smoker eCW1 ([facility]) Smoking 10/12/2020 12:00:00 AM EDT Former Smoker completed Former Smoker eCW1 ([facility]) Smoking 10/12/2020 12:00:00 AM EDT Former Smoker completed Former Smoker eCW1 ([facility]) Smoking 10/12/2020 12:00:00 AM EDT Former Smoker completed Former Smoker eCW1 ([facility]) Smoking 07/08/2020 12:00:00 AM EDT Former Smoker completed Former Smoker eCW1 ([facility]) Smoking 07/08/2020 12:00:00 AM EDT Former Smoker completed Former Smoker eCW1 ([facility]) Smoking 07/08/2020 12:00:00 AM EDT Former Smoker completed Former Smoker eCW1 ([facility]) Smoking 06/11/2020 12:00:00 AM EST Former Smoker completed Former Smoker eCW1 ([facility]) Smoking 05/12/2020 12:00:00 AM EST Former Smoker completed Former Smoker eCW1 ([facility]) Smoking 04/27/2020 12:00:00 AM EST Former Smoker completed Former Smoker eCW1 ([facility]) Smoking 04/27/2020 12:00:00 AM EST Former Smoker completed Former Smoker eCW1 ([facility]) Smoking 04/27/2020 12:00:00 AM EST Former Smoker completed Former Smoker eCW1 ([facility]) Smoking 02/20/2020 12:00:00 AM EDT Former Smoker completed Former Smoker eCW1 ([facility]) Smoking 02/20/2020 12:00:00 AM EDT Former Smoker completed Former Smoker eCW1 ([facility]) Smoking 02/20/2020 12:00:00 AM EDT Former Smoker completed Former Smoker eCW1 ([facility]) Smoking 02/20/2020 12:00:00 AM EDT Former Smoker completed Former Smoker eCW1 ([facility]) Vital Signs ID Date Data Source UNK Name Value Range Interpretation Code Description Data Source(s) Systolic blood pressure 120 mm[Hg] 120 mm[Hg] [facility] Body surface area Derived from formula 2.37 m2 2.37 m2 [facility] Diastolic blood pressure 70 mm[Hg] 70 mm[Hg] [facility] Heart rate 94 /min 94 /min [facility] ([facility]) Oxygen saturation in Arterial blood by Pulse oximetry 96 % 96 % [facility] ([facility]) Body height 74 [in_i] 74 [in_i] [facility] ([facility]) 6'2" Body weight 245.00 [lb_av] 245.00 [lb_av] MEDEN T ([facility]) Body mass index (BMI) [Ratio] 31.5 kg/m2 31.5 k g/m2 [facility] ([facility]) [place] body weight 190 [lb_av] 190 [lb_av] MEDEN T ([facility]) Body weight 111.132 kg 111.132 kg [facility] ([facility]) Body weight 249 [lb_av] 249 [lb_av] eCW1 ([facility]) Body height 73 [in_i] 73 [in_i] eCW1 ([facility]) Body mass index (BMI) [Ratio] 32.85 kg/m2 32.85 kg/m2 eCW1 ([facility]) Heart rate 83 /min 83 /min eCW1 ([facility]) Respiratory rate 18 /min 18 /min eCW1 (On license of [facility]) Body temperature 98.3 [degF] 98.3 [degF] eCW1 ( [facility]) Systolic blood pressure 143 mm[Hg] 143 mm[Hg] e CW1 ([facility]) Diastolic blood pressure 95 mm[Hg] 95 mm[Hg] eCW1 ([facility]) Body height 74 [in_i] 74 [in_i] [facility] ([facility], ) 6'2" Body temperature 96.9 [degF] 96.9 [degF] [facility] ([facility]) Oxygen saturation in Arterial blood by Pulse oximetry 96 % 96 % [facility] ([facility]) Body temperature 96.9 [degF] 96.9 [degF] [facility] ([facility]) Body weight 255.12 [lb_av] 255.12 [lb_av] MEDEN T ([facility]) Body mass index (BMI) [Ratio] 32.8 kg/m2 32.8 k g/m2 [facility] ([facility]) [place] body weight 190 [lb_av] 190 [lb_av] MEDEN T ([facility]) Body weight 115.725 kg 115.725 kg [facility] ([facility]) Body surface area Derived from formula 2.41 m2 2.41 m2 [facility] ([facility]) Systolic blood pressure 122 mm[Hg] 122 mm[Hg] [facility] Diastolic blood pressure 76 mm[Hg] 76 mm[Hg] [facility] ([facility]) Heart rate 79 /min 79 /min [facility] ([facility]) Oxygen saturation in Arterial blood by Pulse oximetry 96 % 96 % [facility] ([facility]) [place] body weight 190 [lb_av] 190 [lb_av] MEDEN T ([facility]) Body weight 255.12 [lb_av] 255.12 [[facility]_av] [facility] Body surface area Derived from formula 2.41 m2 2.41 m2 [facility] ([facility]) Body weight 115.725 kg 115.725 kg [facility] ([facility]) Body mass index (BMI) [Ratio] 32.8 kg/m2 32.8 k g/m2 [facility] ([facility]) Body height 74 [in_i] 74 [in_i] [facility] 6'2" Body weight 260 [lb_av] 260 [lb_av] eCW1 ([facility]) Body height 73 [in_i] 73 [in_i] eCW1 ([facility]) Body mass index (BMI) [Ratio] 34.30 kg/m2 34.30 kg/m2 eCW1 ([facility]) Heart rate 75 /min 75 /min eCW1 ([facility]) Respiratory rate 20 /min 20 /min eCW1 (On license of [facility]) Body temperature 98.7 [degF] 98.7 [degF] eCW1 ( [facility]) Systolic blood pressure 134 mm[Hg] 134 mm[Hg] e CW1 ([facility]) Diastolic blood pressure 87 mm[Hg] 87 mm[Hg] eCW1 ([facility]) Heart rate 80 /min 80 /min [facility] ([facility]) Oxygen saturation in Arterial blood by Pulse oximetry 94 % 94 % [facility] ([facility]) Room Air Systolic blood pressure 122 mm[Hg] 122 mm[Hg] M EDENT ([facility]) Diastolic blood pressure 82 mm[Hg] 82 mm[Hg] [facility] ([facility]) Body height 74 [in_i] 74 [in_i] [facility] ([facility]) 6'2" Body weight 255.00 [lb_av] 255.00 [lb_av] [facility] Body mass index (BMI) [Ratio] 32.7 kg/m2 32.7 k g/m2 [facility] ([facility]) [place] body weight 190 [lb_av] 190 [lb_av] [facility] Body weight 115.668 kg 115.668 kg [facility] ([facility]) Body surface area Derived from formula 2.41 m2 2.41 m2 [facility] ([facility]) Body weight 250 [lb_av] 250 [lb_av] eCW1 ([facility]) Body height 73 [in_i] 73 [in_i] eCW1 ([facility]) Body mass index (BMI) [Ratio] 32.98 kg/m2 32.98 kg/m2 eCW1 ([facility]) Heart rate 81 /min 81 /min eCW1 ([facility]) Respiratory rate 18 /min 18 /min eCW1 (On license of [facility]) Body temperature 96.4 [degF] 96.4 [degF] eCW1 ( [facility]) Systolic blood pressure 154 mm[Hg] 154 mm[Hg] e CW1 ([facility]) Diastolic blood pressure 95 mm[Hg] 95 mm[Hg] eCW1 ([facility]) Systolic blood pressure 154 mm[Hg] 154 mm[Hg] M EDENT ([facility]) Diastolic blood pressure 102 mm[Hg] 102 mm[Hg] MEDENT ([facility], [facility]) Heart rate 83 /min 83 /min [facility] Respiratory rate 16 /min 16 /min MEDENT ( [facility], [facility]) Oxygen saturation in Arterial blood by Pulse oximetry 98 % 98 % MEDENT ([facility], [facility]) Body temperature 97.1 [degF] 97.1 [degF] MEDENT ([facility]) Body weight 210.00 [lb_av] 210.00 [lb_av] MEDEN T ([facility], [facility]) Systolic blood pressure 142 mm[Hg] 142 mm[Hg] M EDENT ([facility], [facility]) Oxygen saturation in Arterial blood by Pulse oximetry 95 % 95 % MEDENT ([facility], [facility]) Diastolic blood pressure 92 mm[Hg] 92 mm[Hg] MEDENT ([facility], [facility]) Heart rate 70 /min 70 /min [facility] Body temperature 98.1 [degF] 98.1 [degF] MEDENT ([facility], [facility]) Body weight 250.00 [lb_av] 250.00 [lb_av] MEDEN T ([facility], [facility]) Body height 75 [in_i] 75 [in_i] MEDENT ([facility]) 6'3" Body mass index (BMI) [Ratio] 31.2 kg/m2 31.2 k g/m2 MEDENT ([facility], [facility]) Respiratory rate 20 /min 20 /min MEDENT ( [facility], [facility]) Body weight 250.8 [lb_av] 250.8 [lb_av] eCW1 ([facility]) Body height 73 [in_i] 73 [in_i] eCW1 ([facility]) Body mass index (BMI) [Ratio] 33.09 kg/m2 33.09 kg/m2 eCW1 ([facility]) Heart rate 70 /min 70 /min eCW1 ([facility]) Respiratory rate 17 /min 17 /min eCW1 (On license of [facility]) Body temperature 97.8 [degF] 97.8 [degF] eCW1 ( [facility]) Systolic blood pressure 146 mm[Hg] 146 mm[Hg] e CW1 ([facility]) Diastolic blood pressure 95 mm[Hg] 95 mm[Hg] eCW1 ([facility]) Patient Treatment Plan of Care Planned Activity Planned Date Details Description Data Source (s) Fluoxetine 60 MG Oral Tablet 06/11/2020 12:00:00 AM EST eCW1 ([facility]) Chlorthalidone 25 MG Oral Tablet 06/11/2020 12:00:00 AM EST eCW1 ([facility]) Ofloxacin 3 MG/ML Ophthalmic Solution 02/24/2020 12:00:00 AM EST eCW1 ([facility]) Ofloxacin 3 MG/ML Ophthalmic Solution 02/24/2020 12:00:00 AM EST eCW1 ([facility]) Ofloxacin 3 MG/ML Ophthalmic Solution 02/24/2020 12:00:00 AM EST eCW1 ([facility]) Ofloxacin 3 MG/ML Ophthalmic Solution 02/24/2020 12:00:00 AM EST eCW1 ([facility]) Ciprofloxacin-Hydrocortisone 0.2-1 % 02/20/2020 12:00:00 AM EDT eCW1 ([facility]) Ciprofloxacin-Hydrocortisone 0.2-1 % 02/20/2020 12:00:00 AM EDT eCW1 ([facility]) Ciprofloxacin-Hydrocortisone 0.2-1 % 02/20/2020 12:00:00 AM EDT eCW1 ([facility]) Ciprofloxacin-Hydrocortisone 0.2-1 % 02/20/2020 12:00:00 AM EDT eCW1 ([facility]) Triamcinolone Acetonide 1 MG/ML Topical Cream 01/21/2020 12:00:00 A M EDT eCW1 ([facility]) Triamcinolone Acetonide 1 MG/ML Topical Cream 01/21/2020 12:00:00 A M EDT eCW1 ([facility])
[2021-03-12 01:27] VITALS: BP 168/95
--- NOTE | 2021-03-13 08:02 | ECGEPIP ---
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
--- NOTE | 2021-03-13 08:02 | ECGEPIP ---
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
== END 2021-03-12 01:33 | disposition home or self-care (01) ==
LOC: M ED 16:53
DX: R55 Syncope and collapse (principal); R07.9 Chest pain, unspecified; I10 Essential (primary) hypertension; E78.5 Hyperlipidemia, unspecified; F32.9 Major depressive disorder, single episode, unspecified; G47.33 Obstructive sleep apnea (adult) (pediatric); J44.9 Chronic obstructive pulmonary disease, unspecified; Z87.891 Personal history of nicotine dependence; Z79.899 Other long term (current) drug therapy; Z88.5 Allergy status to narcotic agent; Z88.2 Allergy status to sulfonamides

== ENCOUNTER → 2021-06-21 | Outpatient (CLI) | payer MEDICARE ==
[~2021-06-21] MED LIST changes: +ALAVTAB; +ALBU8.5H; +CHLO125TA; +LISI40TA4; +MODA100T13; +NIFE30TA50
[2021-06-21 17:01] LABS: BLOOD UREA NITROGEN 16 MG/DL (7-18); CALCIUM LEVEL 10.3 MG/DL (8.8-10.2); CARBON DIOXIDE LEVEL 32 MEQ/L (21-32); CHLORIDE LEVEL 99 MEQ/L (98-107); CHOLESTEROL LEVEL 203 MG/DL (<200); CREATININE FOR GFR 1.14 MG/DL (0.70-1.30); GLOMERULAR FILTRATION RATE > 60.0 (>49); GLUCOSE, FASTING 110 MG/DL (70-100); HDL CHOLESTEROL 73 MG/DL (>40); LDL CHOLESTEROL 96 MG/DL (<100); NON-HDL-C 130 MG/DL; POTASSIUM SERUM 4.4 MEQ/L (3.5-5.1); SODIUM LEVEL 136 MEQ/L (136-145); TRIGLYCERIDES LEVEL 170 MG/DL (<150)
[2021-06-21 19:06] LABS: HEMOGLOBIN A1c 5.6 %
== END ==
LOC: M PLALAB 08:26
PROVIDERS: ATTEND Family Medicine
DX: R73.03 Prediabetes (principal); E78.00 Pure hypercholesterolemia, unspecified

== ENCOUNTER → 2021-06-25 | Outpatient (CLI) | payer MEDICARE | LOC: M RAD 08:23 | PROVIDERS: ATTEND Internal Medicine Pulmonary Disease | DX: R91.8 Other nonspecific abnormal finding of lung field (principal) ==

== ENCOUNTER → 2021-10-05 | Outpatient (REF) | payer MEDICARE | LOC: M SFHCDERM 16:28 | PROVIDERS: ATTEND Nurse Practitioner Family | DX: L57.0 Actinic keratosis (principal) ==

== ENCOUNTER → 2021-10-15 | Outpatient (CLI) | payer MEDICARE | LOC: M SLEEP 20:00 | PROVIDERS: ATTEND Internal Medicine Pulmonary Disease | DX: G47.33 Obstructive sleep apnea (adult) (pediatric) (principal) ==

== ENCOUNTER → 2022-01-06 | Outpatient (CLI) | payer MEDICARE | LOC: M PLALAB 09:38 | PROVIDERS: ATTEND Physician Assistant | DX: Z12.5 Encounter for screening for malignant neoplasm of prostate (principal) | CPT/HCPCS: 36415; G0103 ==

== ENCOUNTER → 2022-01-14 | Outpatient (CLI) | payer MEDICARE | LOC: M RAD 10:12 | PROVIDERS: ATTEND Family Medicine | DX: N44.2 Benign cyst of testis (principal) ==

== ENCOUNTER 2022-07-07 10:05 | Inpatient (IN) | payer MEDICARE, OTHER ==
[~2022-07-07] VITALS: Ht 185.4 cm; Wt 109.4 kg
[~2022-07-07 10:05] MED LIST changes: -ALBU8.5H; +ALBU8.5H INH; -MODA100T13; +MODA100T13 PO
[2022-07-07] MEDS ORDERED: TAMS1CAP17 PO (10:35)
[2022-07-07] MEDS ORDERED: NIFE60TA40 PO (10:35)
[2022-07-07 11:07] LABS: BASO % 0.6 % (0.0-1.0); EOS # 0.1 10^3/uL (0.0-0.5); EOS % 2.5 % (0.0-3.0); HEMATOCRIT 38.5 % (42.0-52.0); HEMOGLOBIN 12.8 g/dl (13.5-17.5); LYMPH # 0.8 10^3/uL (1.5-5.0); LYMPH % 23.4 % (24.0-44.0); MEAN CORPUSCULAR HEMOGLOBIN 31.4 pg (27.0-33.0); MEAN CORPUSCULAR HGB CONC 33.2 g/dl (32.0-36.5); MEAN CORPUSCULAR VOLUME 94.6 fl (80.0-96.0); MONO # 0.5 10^3/uL (0.0-0.8); MONO % 14.6 % (2.0-8.0); NEUTROPHILS # 1.9 10^3/uL (1.5-8.5); NEUTROPHILS % 58.6 % (36.0-66.0); PLATELET COUNT, AUTOMATED 208 10^3/uL (150-450); RED BLOOD COUNT 4.07 10^6/uL (4.30-6.10); WHITE BLOOD COUNT 3.2 10^3/uL (4.0-10.0)
[2022-07-07 11:19] LABS: INR 0.92; PROTHROMBIN TIME 12.6 SECONDS (12.5-14.5)
[2022-07-07] MEDS ORDERED: ISOVUE-370 76% 100ML VIAL As Ordered ONE (11:21)
[2022-07-07 11:22] LABS: D-DIMER QUANT 642.58 ng/ml (<500)
[2022-07-07 11:30] LABS: CK-MB VALUE MASS < 1.0 NG/ML (<3.6)
[2022-07-07 11:32] LABS: ALBUMIN 4.4 G/DL (3.2-5.2); ALKALINE PHOSPHATASE 157 U/L (46-116); ALT/SGPT 65 U/L (7.0-40); AST/SGOT 90 U/L (<34); BILIRUBIN,DIRECT 0.3 MG/DL (<0.4); BILIRUBIN,TOTAL 0.7 MG/DL (0.3-1.2); CPK CREATINE PHOSPHOKINASE 77 U/L (46-171); MB/CK RELATIVE INDEX 1.29 (< OR =4); TOTAL PROTEIN 7.4 G/DL (5.7-8.2)
[2022-07-07 11:34] LABS: THYROID STIMULATING HORMONE 0.936 uIU/ML (0.55-4.78)
[2022-07-07 12:22] LABS: CK-MB VALUE MASS < 1.0 NG/ML (<3.6)
[2022-07-07 12:23] LABS: CPK CREATINE PHOSPHOKINASE 71 U/L (46-171)
[2022-07-07] MEDS ORDERED: FUROSEMIDE 40MG/4ML VIAL IV ONE (13:30)
[2022-07-07] MEDS ORDERED: LORazepam 2 MG TAB PO PRN (16:30)
[2022-07-07] MEDS ORDERED: ROSU20TA5 PO (16:39)
[2022-07-07] MEDS ORDERED: ALBU2.5V10 NEB (16:39)
[2022-07-07] MEDS ORDERED: METH-1164 PO (16:39)
[2022-07-07] MEDS ORDERED: ECOT81TA5 PO (16:39)
[2022-07-07] MEDS ORDERED: FLUT1BLS6 INH (16:39)
[2022-07-07] MEDS ORDERED: C-101TAB3 PO (16:39)
[2022-07-07] MEDS ORDERED: CARV6.25 PO (16:39)
[2022-07-07] MEDS ORDERED: FLUO60TA6 PO (16:39)
[2022-07-07] MEDS ORDERED: HOME MED LIST COMPLETE! XX SCH (16:40)
[2022-07-07] MEDS: methylPREDNISolone 40MG 1ML VIAL IV SCH (17:09)
[2022-07-07 18:00] VITALS: BP 143/96
[2022-07-07] MEDS ORDERED: RIVAROXABAN 10MG TAB (XARELTO) PO SCH (18:00)
[2022-07-07 18:24] LABS: HEPATITIS B SURFACE ANTIGEN NEGATIVE (NEGATIVE)
[2022-07-07 18:45] LABS: HEPATITIS B CORE ANTIBODY IGM NEGATIVE (NEGATIVE)
[2022-07-07 18:48] VITALS: BP 147/94
[2022-07-07] MEDS: ADVAIR HFA 115/21MCG INHALER INH SCH (20:00)
[2022-07-07] MEDS: IPRATROPIUM 0.5MG/ALBUTEROL 2.5MG INH SOL UD 3ML (DUONEB) NEB SCH (20:00)
[2022-07-07 20:21] LABS: INR 1.01; PARTIAL THROMBOPLASTIN TIME 26.2 SECONDS (24.8-34.2); PROTHROMBIN TIME 13.5 SECONDS (12.5-14.5)
[2022-07-07] MEDS: CARVedilol 12.5 MG TAB PO SCH (20:37)
[2022-07-07] MEDS: THIAMINE 100 MG TAB PO SCH (20:38)
[2022-07-07 20:43] VITALS: BP 144/96
[2022-07-07] MEDS ORDERED: ROSUVASTATIN 10 MG TAB (CRESTOR) PO SCH (21:00)
[2022-07-07 21:45] VITALS: BP 136/86
[2022-07-07 22:00] VITALS: BP 139/89
[2022-07-07] MEDS: GABAPENTIN 300 MG CAP PO SCH (23:43)
[2022-07-08 01:35] VITALS: BP 142/86
[2022-07-08 02:00] VITALS: BP 137/86
[2022-07-08] MEDS: IPRATROPIUM 0.5MG/ALBUTEROL 2.5MG INH SOL UD 3ML (DUONEB) NEB SCH ×3 (02:00→14:01)
[2022-07-08] MEDS: methylPREDNISolone 40MG 1ML VIAL IV SCH ×2 (05:03→17:00)
[2022-07-08 05:52] LABS: HEMOGLOBIN 13.4 g/dl (13.5-17.5); MEAN CORPUSCULAR HGB CONC 34.4 g/dl (32.0-36.5); MEAN CORPUSCULAR VOLUME 93.1 fl (80.0-96.0); PLATELET COUNT, AUTOMATED 220 10^3/uL (150-450); RED BLOOD COUNT 4.19 10^6/uL (4.30-6.10); WHITE BLOOD COUNT 3.9 10^3/uL (4.0-10.0)
[2022-07-08 06:00] VITALS: BP 136/86
[2022-07-08 06:26] LABS: ALKALINE PHOSPHATASE 142 U/L (46-116); ALT/SGPT 54 U/L (7.0-40); AST/SGOT 60 U/L (<34); BILIRUBIN,DIRECT 0.4 MG/DL (<0.4); BILIRUBIN,TOTAL 0.8 MG/DL (0.3-1.2); BLOOD UREA NITROGEN 22 MG/DL (9-23); CALCIUM LEVEL 9.6 MG/DL (8.3-10.6); CARBON DIOXIDE LEVEL 30 MMOL/L (20-31); CHLORIDE LEVEL 101 MMOL/L (98-107); CREATININE FOR GFR 1.04 MG/DL (0.70-1.30); GLOMERULAR FILTRATION RATE > 60.0 (>49); GLUCOSE, FASTING 147 MG/DL (74-106); POTASSIUM SERUM 3.9 MMOL/L (3.5-5.1); SODIUM LEVEL 137 MMOL/L (136-145)
[2022-07-08] MEDS: ADVAIR HFA 115/21MCG INHALER INH SCH (07:35)
[2022-07-08] MEDS ORDERED: MODAFINIL 100 MG TABLET PO SCH (09:00)
[2022-07-08] MEDS ORDERED: FLUoxetine 20MG CAP PO SCH (09:00)
[2022-07-08] MEDS ORDERED: TAMSULOSIN 0.4 MG CAP PO SCH (09:00)
[2022-07-08] MEDS ORDERED: FOLIC ACID 1MG TAB PO SCH (09:00)
[2022-07-08] MEDS ORDERED: NIFEdipine 30MG XL TAB PO SCH (09:00)
[2022-07-08] MEDS ORDERED: ASPIRIN 81MG ENTERIC TABLET PO SCH (09:00)
[2022-07-08] MEDS ORDERED: MULTIVITAMINS/MINERALS THERAP 1 TAB PO SCH (09:00)
[2022-07-08] MEDS ORDERED: FUROSEMIDE 40MG/4ML VIAL IV SCH (09:00)
[2022-07-08] MEDS ORDERED: OMEPRAZOLE 20MG CAP PO SCH (09:00)
[2022-07-08] MEDS ORDERED: GABAPENTIN 300 MG CAP PO SCH (09:00)
[2022-07-08] MEDS: GABAPENTIN 300 MG CAP PO SCH ×2 (09:31→16:44)
[2022-07-08 09:32] VITALS: BP 136/86
[2022-07-08] MEDS: THIAMINE 100 MG TAB PO SCH (09:32)
[2022-07-08] MEDS: CARVedilol 12.5 MG TAB PO SCH (09:32)
[2022-07-08 14:00] VITALS: BP 140/87
[2022-07-08] MEDS ORDERED: FOLI1TAB11 PO (15:06)
[2022-07-08] MEDS ORDERED: THIA100TA PO (15:06)
[2022-07-08] MEDS ORDERED: FURO20TA2 PO (15:06)
[2022-07-08] MEDS ORDERED: PRED10TA2 PO (15:06)
[2022-07-08] MEDS ORDERED: PANT40TA29 PO (15:06)
[2022-07-08] MEDS ORDERED: VITMTA PO (15:06)
[2022-07-11] MEDS ORDERED: GABAPENTIN 300 MG CAP PO SCH (09:00)
== END 2022-07-08 17:44 | disposition home or self-care (01) | DRG 189 ==
LOC: M ED 10:05 → M ED INP 16:04 → ENRESERV 17:11 → M MSPAV 18:44
PROVIDERS: ADMIT Student in an Organized Health Care Education/Training Program; ATTEND Student in an Organized Health Care Education/Training Program
PROC: B246ZZZ Ultrasonography of Right and Left Heart (ICD-10-PCS; principal; 2022-07-08)
DX: J96.01 Acute respiratory failure with hypoxia (principal); J18.9 Pneumonia, unspecified organism; I50.33 Acute on chronic diastolic (congestive) heart failure; J44.0 Chronic obstructive pulmonary disease with (acute) lower respiratory infection; F10.10 Alcohol abuse, uncomplicated; R74.01 Elevation of levels of liver transaminase levels; E78.5 Hyperlipidemia, unspecified; I11.0 Hypertensive heart disease with heart failure; I25.10 Atherosclerotic heart disease of native coronary artery without angina pectoris; K21.9 Gastro-esophageal reflux disease without esophagitis; G47.33 Obstructive sleep apnea (adult) (pediatric); Z79.82 Long term (current) use of aspirin; Z79.899 Other long term (current) drug therapy; Z88.2 Allergy status to sulfonamides; Z88.5 Allergy status to narcotic agent; Z88.8 Allergy status to other drugs, medicaments and biological substances

== ENCOUNTER → 2022-07-18 | Outpatient (CLI) | payer MEDICARE ==
[~2022-07-18] MED LIST changes: +ALBU2.5V10 NEB; +C-101TAB3 PO; +ECOT81TA5 PO; +FLUO60TA6 PO; +FLUT1BLS6 INH; +FOLI1TAB11 PO; +FURO20TA2 PO; +METH-1164 PO; +NIFE60TA40 PO; +PANT40TA29 PO; +PRED10TA2 PO; +ROSU20TA5 PO; +TAMS1CAP17 PO; +THIA100TA PO; +VITMTA PO
[2022-07-18 12:57] LABS: ALKALINE PHOSPHATASE 113 U/L (46-116); ALT/SGPT 81 U/L (7.0-40); AST/SGOT 51 U/L (<34); BILIRUBIN,TOTAL 0.9 MG/DL (0.3-1.2); BLOOD UREA NITROGEN 26 MG/DL (9-23); CALCIUM LEVEL 9.6 MG/DL (8.3-10.6); CARBON DIOXIDE LEVEL 33 MMOL/L (20-31); CHLORIDE LEVEL 99 MMOL/L (98-107); CREATININE FOR GFR 1.13 MG/DL (0.70-1.30); GLOMERULAR FILTRATION RATE > 60.0 (>49); GLUCOSE, FASTING 110 MG/DL (74-106); POTASSIUM SERUM 3.8 MMOL/L (3.5-5.1); SODIUM LEVEL 137 MMOL/L (136-145); TOTAL PROTEIN 6.6 G/DL (5.7-8.2)
== END ==
LOC: M PLALAB 08:02
PROVIDERS: ATTEND Physician Assistant
DX: J18.9 Pneumonia, unspecified organism (principal); F10.10 Alcohol abuse, uncomplicated
CPT/HCPCS: 36415; 80053; 82397; 83520; 83883; G0463

== ENCOUNTER → 2022-10-14 | Outpatient (CLI) | payer MEDICARE ==
[~2022-10-14] MED LIST changes: +NIFE-3; -NIFE30TA50; -NIFE60TA40 PO; +NIFE60TA96 PO; -ROSU20TA5 PO; +ROSU20TA61 PO
== END ==
LOC: M RAD 10:18
PROVIDERS: ATTEND Physician Assistant
DX: N50.89 Other specified disorders of the male genital organs (principal)

== ENCOUNTER → 2022-10-20 | Outpatient (CLI) | payer MEDICARE ==
[2022-10-20 11:07] LABS: IMMUNOGLOBULIN A 97.1 MG/DL (40-350); IRON (FE) 71 UG/DL (65-175)
[2022-10-20 11:08] LABS: ALBUMIN 3.9 G/DL (3.2-5.2); ALKALINE PHOSPHATASE 172 U/L (46-116); ALT/SGPT 55 U/L (7.0-40); AST/SGOT 73 U/L (<34); BILIRUBIN,DIRECT 0.3 MG/DL (<0.4); BILIRUBIN,TOTAL 0.8 MG/DL (0.3-1.2); PERCENT SATURATION 23.1 % (19.7-50.0); TOTAL IRON BINDING CAPACITY 307 UG/DL (250-425); TOTAL PROTEIN 6.6 G/DL (5.7-8.2)
[2022-10-20 16:00] LABS: HEPATITIS B SURFACE ANTIGEN NEGATIVE (NEGATIVE)
[2022-10-20 16:21] LABS: HEPATITIS B CORE ANTIBODY IGM NEGATIVE (NEGATIVE); HEPATITIS C VIRUS ABY INDEX 0.08 INDEX (<0.8)
[2022-10-27 18:07] LABS: ALPHA 1 ANTITRYPSIN 103 mg/dL (101-187); ANCA-ATYPICAL <1:20 titer (Neg:<1:20); ANTI-MITOCHONDRIAL ANTIBODY <20.0 Units (0.0-20.0); ANTINUCLEAR ANTIBODIES DIRECT Negative (Negative); CERULOPLASMIN 23.7 mg/dL (16.0-31.0); CYTOPLASMIC NEUTROP AB ANCA-C <1:20 titer (Neg:<1:20); LIVER-KIDNEY MICROSOMAL ABY <20.1 Units (0.0-20.0); PERINUCLEAR AB ANCA-P <1:20 titer (Neg:<1:20); TISSUE TRANSGLUTAMINASE IgA <2 U/mL (0-3)
== END ==
LOC: M PLALAB 08:06
PROVIDERS: ATTEND Internal Medicine Gastroenterology
DX: K70.9 Alcoholic liver disease, unspecified (principal)

== ENCOUNTER → 2022-11-09 | Outpatient (CLI) | payer MEDICARE | LOC: M RAD 07:38 | PROVIDERS: ATTEND Internal Medicine Gastroenterology | DX: K74.60 Unspecified cirrhosis of liver (principal) ==

== ENCOUNTER 2022-12-08 12:04 | Day surgery (SDC) | payer MEDICARE ==
[~2022-12-08] VITALS: Ht 188 cm; Wt 104.9 kg
[~2022-12-08 12:04] MED LIST changes: +ACET-683 PO; +FLUO20CA22 PO; +LIDOCAINE 2% 100MG/5ML SDV (FOR ANES.) As Ordered ONE; +NS 1,000 ML IV ONE; +VITA100T28 PO; +VITAD1000T PO; +propofoL 200 MG/20 ML VIAL As Ordered ONE
[2022-12-08] MEDS ORDERED: fentaNYL 100 MCG/2 ML INJECTION As Ordered ONE (12:34)
[2022-12-08 13:58] VITALS: BP 144/87; TEMP 97.8; O2SAT 92
== END 2022-12-08 14:00 | disposition home or self-care (01) ==
LOC: M OPP 12:04
PROVIDERS: ATTEND Internal Medicine Gastroenterology
DX: K31.7 Polyp of stomach and duodenum (principal); K76.6 Portal hypertension; Z87.891 Personal history of nicotine dependence; Z79.51 Long term (current) use of inhaled steroids; Z79.52 Long term (current) use of systemic steroids; Z79.1 Long term (current) use of non-steroidal anti-inflammatories (NSAID); Z79.02 Long term (current) use of antithrombotics/antiplatelets
CPT/HCPCS: 43239; 88305; J3010

== ENCOUNTER → 2022-12-13 | Outpatient (CLI) | payer MEDICARE ==
[~2022-12-13] MED LIST changes: -LIDOCAINE 2% 100MG/5ML SDV (FOR ANES.) As Ordered ONE; -NS 1,000 ML IV ONE; -propofoL 200 MG/20 ML VIAL As Ordered ONE
[2022-12-13 08:33] LABS: BLOOD UREA NITROGEN 13 MG/DL (9-23); CREATININE FOR GFR 1.24 MG/DL (0.70-1.30); GLOMERULAR FILTRATION RATE > 60.0 (>49)
== END ==
LOC: M LAB 07:54
PROVIDERS: ATTEND Family Medicine
DX: I10 Essential (primary) hypertension (principal)

== ENCOUNTER → 2022-12-16 | Outpatient (CLI) | payer MEDICARE ==
[~2022-12-16] MED LIST changes: +GASTROGRAFIN SOLUTION 30ML As Ordered ONE; +ISOVUE-370 76% 100ML VIAL As Ordered ONE
== END ==
LOC: M RAD 08:46
PROVIDERS: ATTEND Student in an Organized Health Care Education/Training Program
DX: K40.90 Unilateral inguinal hernia, without obstruction or gangrene, not specified as recurrent (principal)
CPT/HCPCS: 74177; Q9963; Q9967

== ENCOUNTER → 2022-12-29 | Outpatient (REF) | payer MEDICARE ==
[~2022-12-29] MED LIST changes: -GASTROGRAFIN SOLUTION 30ML As Ordered ONE; -ISOVUE-370 76% 100ML VIAL As Ordered ONE
== END ==
LOC: M SFHCLERA 08:56
PROVIDERS: ATTEND Family Medicine
DX: R05.9 Cough, unspecified (principal)

== ENCOUNTER → 2023-02-01 | Outpatient (REF) | payer MEDICARE ==
[2023-02-01 17:47] LABS: APPEARANCE, URINE CLEAR (CLEAR); BACTERIA, URINE AUTO NEGATIVE (NEGATIVE); BILIRUBIN, URINE AUTO NEGATIVE (NEGATIVE); BLOOD, URINE BLOOD NEGATIVE (NEGATIVE); COLOR, URINE STRAW (YELLOW); GLUCOSE, URINE (UA) AUTO NEGATIVE (NEGATIVE); KETONE, URINE AUTO NEGATIVE (NEGATIVE); LEUKOCYTE ESTERASE, URINE AUTO NEGATIVE (NEGATIVE); NITRITE, URINE AUTO NEGATIVE (NEGATIVE); PROTEIN, URINE AUTO NEGATIVE (NEGATIVE); RBC, URINE AUTO 0 /HPF (0-3); SQUAMOUS EPITHELIAL CELL UR AU 0 /HPF (0-6); UROBILINOGEN, URINE AUTO 0.2 mg/dL (0.0-2.0); WBC, URINE AUTO 0 /HPF (0-3)
== END ==
LOC: M SFHCLERA 17:21
PROVIDERS: ATTEND Family Medicine
DX: N32.89 Other specified disorders of bladder (principal); R35.0 Frequency of micturition

== ENCOUNTER → 2023-05-09 | Outpatient (CLI) | payer MEDICARE ==
[2023-05-09 10:11] LABS: HEMATOCRIT 40.5 % (42.0-52.0); HEMOGLOBIN 13.7 g/dl (13.5-17.5); MEAN CORPUSCULAR HEMOGLOBIN 30.2 pg (27.0-33.0); MEAN CORPUSCULAR HGB CONC 33.8 g/dl (32.0-36.5); MEAN CORPUSCULAR VOLUME 89.2 fl (80.0-96.0); PLATELET COUNT, AUTOMATED 189 10^3/uL (150-450); RED BLOOD COUNT 4.54 10^6/uL (4.30-6.10); WHITE BLOOD COUNT 3.8 10^3/uL (4.0-10.0)
[2023-05-09 10:39] LABS: ALKALINE PHOSPHATASE 154 U/L (46-116); ALT/SGPT 57 U/L (7.0-40); AST/SGOT 52 U/L (<34); BILIRUBIN,TOTAL 0.6 MG/DL (0.3-1.2); BLOOD UREA NITROGEN 20 MG/DL (9-23); CALCIUM LEVEL 9.6 MG/DL (8.3-10.6); CARBON DIOXIDE LEVEL 32 MMOL/L (20-31); CHLORIDE LEVEL 105 MMOL/L (98-107); CHOLESTEROL LEVEL 130 MG/DL (<200); CHOLESTEROL RISK RATIO 2.71 (<5); CREATININE FOR GFR 1.08 MG/DL (0.70-1.30); GLOMERULAR FILTRATION RATE > 60.0 (>49); GLUCOSE, FASTING 97 MG/DL (74-106); HDL CHOLESTEROL 47.8 MG/DL (>40); LDL CHOLESTEROL 57.8 MG/DL (<100); NON-HDL-C 82.2 MG/DL; POTASSIUM SERUM 4.3 MMOL/L (3.5-5.1); SODIUM LEVEL 142 MMOL/L (136-145); TOTAL PROTEIN 6.7 G/DL (5.7-8.2); TRIGLYCERIDES LEVEL 122 MG/DL (<150)
== END ==
LOC: M PLALAB 08:02
PROVIDERS: ATTEND Internal Medicine Cardiovascular Disease
DX: E78.2 Mixed hyperlipidemia (principal); I25.119 Atherosclerotic heart disease of native coronary artery with unspecified angina pectoris; R06.09 Other forms of dyspnea

== ENCOUNTER → 2023-06-26 | Outpatient (REF) | payer MEDICARE ==
[2023-06-26 21:28] LABS: RSV AMPLIFICATION NEGATIVE (NEGATIVE)
== END ==
LOC: M LAB REF 20:16
PROVIDERS: ATTEND Physician Assistant
DX: J06.9 Acute upper respiratory infection, unspecified (principal)

== ENCOUNTER → 2023-10-04 | Outpatient (CLI) | payer MEDICARE ==
[~2023-10-04] MED LIST changes: +FLUO-365 PO; -FLUO20CA22 PO
== END ==
LOC: M PLALAB 09:42
PROVIDERS: ATTEND Physician Assistant
DX: Z12.5 Encounter for screening for malignant neoplasm of prostate (principal)

== ENCOUNTER → 2023-10-30 | Outpatient (CLI) | payer MEDICARE | LOC: M RAD 07:09 | PROVIDERS: ATTEND Internal Medicine Pulmonary Disease | DX: J45.40 Moderate persistent asthma, uncomplicated (principal) ==

== ENCOUNTER 2023-11-02 13:30 | Emergency (ER) | payer MEDICARE ==
[~2023-11-02] VITALS: Ht 188 cm; Wt 114.6 kg
[2023-11-02] MEDS ORDERED: LEVO1TAB39 PO (16:16)
[2023-11-02 16:37] LABS: Trichomonas vaginalis (AMP) NOT DETECTED (NEGATIVE)
[2023-11-02 17:00] LABS: GC DNA AMPLIFICATION NEGATIVE (NEGATIVE)
[2023-11-02 17:03] VITALS: BP 127/77; TEMP 98.4; O2SAT 92
[2023-11-02] MEDS: LevoFLOXacin 500 MG TABLET PO ONE (17:06)
== END 2023-11-02 17:11 | disposition home or self-care (01) ==
LOC: M ED 13:30
DX: N45.1 Epididymitis (principal); Z88.5 Allergy status to narcotic agent; Z88.2 Allergy status to sulfonamides; Z88.8 Allergy status to other drugs, medicaments and biological substances; Z79.1 Long term (current) use of non-steroidal anti-inflammatories (NSAID); Z79.51 Long term (current) use of inhaled steroids; Z79.810 Long term (current) use of selective estrogen receptor modulators (SERMs); Z79.899 Other long term (current) drug therapy

== ENCOUNTER → 2023-11-21 | Outpatient (REF) | payer MEDICARE ==
[~2023-11-21] MED LIST changes: +LEVO1TAB39 PO
[2023-11-21 18:39] LABS: APPEARANCE, URINE CLEAR (CLEAR); BACTERIA, URINE AUTO NEGATIVE (NEGATIVE); BILIRUBIN, URINE AUTO NEGATIVE (NEGATIVE); BLOOD, URINE BLOOD NEGATIVE (NEGATIVE); COLOR, URINE YELLOW (YELLOW); GLUCOSE, URINE (UA) AUTO NEGATIVE (NEGATIVE); KETONE, URINE AUTO NEGATIVE (NEGATIVE); LEUKOCYTE ESTERASE, URINE AUTO TRACE (NEGATIVE); NITRITE, URINE AUTO NEGATIVE (NEGATIVE); PROTEIN, URINE AUTO NEGATIVE (NEGATIVE); RBC, URINE AUTO 0 /HPF (0-3); SPECIFIC GRAVITY URINE AUTO 1.015 (1.002-1.035); SQUAMOUS EPITHELIAL CELL UR AU 0 /HPF (0-6); WBC, URINE AUTO 0 /HPF (0-3)
== END ==
LOC: M SMT 17:00
PROVIDERS: ATTEND Physician Assistant
DX: N45.1 Epididymitis (principal)

== ENCOUNTER → 2023-12-20 | Outpatient (CLI) | payer MEDICARE ==
[2023-12-20 10:39] LABS: BASO % 0.3 % (0.0-1.0); EOS # 0.1 10^3/uL (0.0-0.5); EOS % 3.7 % (0.0-3.0); HEMATOCRIT 39.1 % (42.0-52.0); LYMPH # 0.7 10^3/uL (1.5-5.0); LYMPH % 20.9 % (24.0-44.0); MEAN CORPUSCULAR HEMOGLOBIN 29.8 pg (27.0-33.0); MEAN CORPUSCULAR HGB CONC 33.2 g/dl (32.0-36.5); MEAN CORPUSCULAR VOLUME 89.7 fl (80.0-96.0); MONO # 0.4 10^3/uL (0.0-0.8); MONO % 13.5 % (2.0-8.0); NEUTROPHILS % 61.3 % (36.0-66.0); PLATELET COUNT, AUTOMATED 161 10^3/uL (150-450); RED BLOOD COUNT 4.36 10^6/uL (4.30-6.10); WHITE BLOOD COUNT 3.3 10^3/uL (4.0-10.0)
[2023-12-20 10:50] LABS: INR 1.08; PROTHROMBIN TIME 13.6 SECONDS (12.5-14.5)
[2023-12-20 11:05] LABS: HEMOGLOBIN A1c 5.6 % (4.0-6.0)
[2023-12-20 11:09] LABS: ALBUMIN 4.1 G/DL (3.2-5.2); ALKALINE PHOSPHATASE 182 U/L (46-116); ALT/SGPT 53 U/L (7.0-40); AST/SGOT 61 U/L (<34); BILIRUBIN,TOTAL 0.6 MG/DL (0.3-1.2); BLOOD UREA NITROGEN 20 MG/DL (9-23); CALCIUM LEVEL 9.7 MG/DL (8.3-10.6); CARBON DIOXIDE LEVEL 28 MMOL/L (20-31); CHLORIDE LEVEL 108 MMOL/L (98-107); CHOLESTEROL LEVEL 134 MG/DL (<200); CHOLESTEROL RISK RATIO 3.02 (<5); CREATININE FOR GFR 1.04 MG/DL (0.70-1.30); GLOMERULAR FILTRATION RATE > 60.0 (>42); GLUCOSE, FASTING 101 MG/DL (74-106); HDL CHOLESTEROL 44.3 MG/DL (>40); LDL CHOLESTEROL 57.5 MG/DL (<100); NON-HDL-C 89.7 MG/DL; POTASSIUM SERUM 3.8 MMOL/L (3.5-5.1); SODIUM LEVEL 142 MMOL/L (136-145); TOTAL PROTEIN 7.1 G/DL (5.7-8.2); TRIGLYCERIDES LEVEL 161 MG/DL (<150)
[2023-12-29 03:11] LABS: ALPHA 2-MACROGLOBULINS,QN 180 mg/dL (106-279); ALT (SGPT) P5P 39 U/L (9-46); APOLIPOPROTEIN A-1 162 mg/dL (94-176); BILIRUBIN, TOTAL 0.5 mg/dL (0.2-1.2); FIBROSIS SCORE 0.47; FIBROSIS STAGE MINIMAL FIBROSIS (F0); GGT 151 U/L (3-70); HAPTOGLOBIN 86 mg/dL (43-212); NECROINFLAM ACT GRADE NO ACTIVITY (A0); NECROINFLAM ACT SCORE 0.26
== END ==
LOC: M PLALAB 08:28
PROVIDERS: ATTEND Family Medicine
DX: K74.60 Unspecified cirrhosis of liver (principal); E78.5 Hyperlipidemia, unspecified

== ENCOUNTER → 2024-04-10 | Outpatient (REF) | payer MEDICARE ==
[~2024-04-10] MED LIST changes: -ROSU20TA61 PO; +ROSU20TA86 PO
== END ==
LOC: M SFHCLERA 16:42
PROVIDERS: ATTEND Family Medicine
DX: R50.9 Fever, unspecified (principal); R52 Pain, unspecified

== ENCOUNTER → 2024-06-10 | Outpatient (CLI) | payer MEDICARE | LOC: M RAD 08:36 | PROVIDERS: ATTEND Internal Medicine Pulmonary Disease | DX: J45.40 Moderate persistent asthma, uncomplicated (principal) ==

== ENCOUNTER → 2024-07-09 | Outpatient (CLI) | payer MEDICARE ==
[2024-07-09 10:07] LABS: INR 0.98; PROTHROMBIN TIME 13.3 SECONDS (12.5-14.5)
[2024-07-09 10:18] LABS: BASO % 0.4 % (0.0-1.0); EOS # 0.1 10^3/uL (0.0-0.5); EOS % 2.1 % (0.0-3.0); HEMATOCRIT 39.4 % (42.0-52.0); HEMOGLOBIN 13.4 g/dl (13.5-17.5); LYMPH # 0.9 10^3/uL (1.5-5.0); LYMPH % 18.2 % (24.0-44.0); MEAN CORPUSCULAR HEMOGLOBIN 30.7 pg (27.0-33.0); MEAN CORPUSCULAR VOLUME 90.4 fl (80.0-96.0); MONO # 0.7 10^3/uL (0.0-0.8); NEUTROPHILS # 3.1 10^3/uL (1.5-8.5); NEUTROPHILS % 64.9 % (36.0-66.0); PLATELET COUNT, AUTOMATED 208 10^3/uL (150-450); RED BLOOD COUNT 4.36 10^6/uL (4.30-6.10); WHITE BLOOD COUNT 4.8 10^3/uL (4.0-10.0)
[2024-07-09 10:28] LABS: ALBUMIN 4.2 G/DL (3.2-5.2); ALKALINE PHOSPHATASE 136 U/L (40-129); ALT/SGPT 52 U/L (7.0-40); AST/SGOT 51 U/L (<34); BILIRUBIN,TOTAL 0.8 MG/DL (0.3-1.2); BLOOD UREA NITROGEN 17 MG/DL (9-23); CALCIUM LEVEL 9.5 MG/DL (8.3-10.6); CARBON DIOXIDE LEVEL 27 MMOL/L (20-31); CHLORIDE LEVEL 104 MMOL/L (98-107); CHOLESTEROL LEVEL 143 MG/DL (<200); CHOLESTEROL RISK RATIO 2.64 (<5); CREATININE FOR GFR 0.95 MG/DL (0.70-1.30); GLOMERULAR FILTRATION RATE > 60.0 (>42); GLUCOSE, FASTING 99 MG/DL (74-106); LDL CHOLESTEROL 56.2 MG/DL (<100); SODIUM LEVEL 140 MMOL/L (136-145); TOTAL PROTEIN 7.2 G/DL (5.7-8.2); TRIGLYCERIDES LEVEL 164 MG/DL (<150)
== END ==
LOC: M PLALAB 09:14
PROVIDERS: ATTEND Family Medicine
DX: K70.9 Alcoholic liver disease, unspecified (principal); E78.00 Pure hypercholesterolemia, unspecified

== ENCOUNTER → 2024-07-09 | Outpatient (CLI) | payer MEDICARE | LOC: M RAD 08:32 | PROVIDERS: ATTEND Family Medicine | DX: K70.30 Alcoholic cirrhosis of liver without ascites (principal) ==

== ENCOUNTER → 2024-07-29 | Outpatient (CLI) | payer MEDICARE | LOC: M PLAIMG 14:56 | PROVIDERS: ATTEND Student in an Organized Health Care Education/Training Program | DX: S92.514A Nondisplaced fracture of proximal phalanx of right lesser toe(s), initial encounter for closed fracture (principal); M19.071 Primary osteoarthritis, right ankle and foot; M21.611 Bunion of right foot; W22.8XXA Striking against or struck by other objects, initial encounter; Y92.9 Unspecified place or not applicable; Y93.9 Activity, unspecified; Y99.9 Unspecified external cause status ==

== ENCOUNTER → 2024-11-20 | Outpatient (CLI) | payer MEDICARE ==
[~2024-11-20] MED LIST changes: +LISI40TA10; -LISI40TA4
== END ==
LOC: M RAD 08:39
PROVIDERS: ATTEND Internal Medicine Pulmonary Disease
DX: J45.40 Moderate persistent asthma, uncomplicated (principal)

== ENCOUNTER 2025-01-04 10:58 | Emergency (ER) | payer MEDICARE ==
[~2025-01-04] VITALS: Ht 185.4 cm; Wt 114.6 kg
[~2025-01-04 10:58] MED LIST changes: -IBUP-1022 PO; +IBUP600T42 PO
[2025-01-04] MEDS: IBUPROFEN 600 MG TAB PO ONE (12:44)
[2025-01-04 13:09] LABS: KETONE, URINE AUTO RFX TRACE mg/dL (NEGATIVE); MUCUS, URINE RFX SMALL (NEGATIVE); NITRITE, URINE AUTO RFX NEGATIVE (NEGATIVE); RBC, URINE AUTO RFX 13 /HPF (0-3); SQUAM EPITHELIAL CELL UR AURFX 0 /HPF (0-6)
[2025-01-04 13:16] LABS: LEUKOCYTE ESTERASE UR AUTO RFX 3+ (NEGATIVE); WBC, URINE AUTO RFX TNTC /HPF (0-3)
[2025-01-04] MEDS ORDERED: LEVO1TAB39 PO (13:22)
[2025-01-04 13:32] VITALS: BP 111/73; TEMP 99.8; O2SAT 94
== END 2025-01-04 13:45 | disposition home or self-care (01) ==
LOC: M ED 10:58
DX: N45.1 Epididymitis (principal); I10 Essential (primary) hypertension; K21.9 Gastro-esophageal reflux disease without esophagitis; J44.9 Chronic obstructive pulmonary disease, unspecified; Z88.2 Allergy status to sulfonamides; Z88.5 Allergy status to narcotic agent; Z79.1 Long term (current) use of non-steroidal anti-inflammatories (NSAID); Z79.51 Long term (current) use of inhaled steroids; Z79.899 Other long term (current) drug therapy; Z79.810 Long term (current) use of selective estrogen receptor modulators (SERMs)